=== PATIENT | male | born 1950 | race Caucasian/White ===

== ENCOUNTER 2022-11-29 04:24 | Inpatient (IN) | payer OTHER ==
[~2022-11-29] VITALS: Ht 172.7 cm; Wt 112.0 kg
[2022-11-29] VITALS (61 sets, daily range): BP systolic 72–158; BP diastolic 43–85
[2022-11-29] MEDS: PROPOFOL 100 ML IV SCH
[2022-11-29] MEDS ORDERED: ETOMIDATE (2MG/ML) 20ML VIAL IV ONE ×2 (04:29→04:30)
[2022-11-29] MEDS ORDERED: ROCURONIUM 10MG/ML 10ML VIAL IV ONE ×2 (04:29→04:30)
[2022-11-29] MEDS: MIDAZOLAM DRIP 50 mg/50mL 50 ML IV SCH ×3 (04:40→22:00)
[2022-11-29] MEDS: fentaNYL Drip 2500mCg/250mlNS 250 ML IV SCH (04:40)
[2022-11-29 05:01] LABS: Basophils # (auto) 0.1 10 ^3/uL (0-0.2); Basophils % (auto) 1.1 % (0.0-2.0); Eosinophils # (auto) 0.2 10 ^3/uL (0-0.8); Eosinophils % (auto) 1.4 % (0.0-7.0); Hematocrit 19.1 % (41.0-53.0); Lymphocytes # (auto) 3.8 10 ^3/uL (0.4-5.4); Lymphocytes % (auto) 32.1 % (10.0-50.0); Mean Corpuscular Hemoglobin 28.7 pg (28.0-32.0); Mean Corpuscular Hgb Conc. 31.1 g/dL (32.0-36.0); Mean Corpuscular Volume 92.2 fL (80.0-100.0); Monocytes # (auto) 1.2 10 ^3/uL (0-1.3); Monocytes % (auto) 10.3 % (0.0-12.0); Neutrophils # (auto) 6.5 10 ^3/uL (1.6-8.6); Neutrophils % (auto) 55.1 % (37.0-80.0); Nucleated Red Blood Cells % 0.1 %; Red Blood Cells 2.08 10^6/uL (4.5-5.90); Red Cell Distribution Width 19.4 % (11.8-14.3); White Blood Cell 11.8 10^3/uL (4.4-10.8)
[2022-11-29 05:09] LABS: INR 1.08 (0.9-1.15); Partial Thromboplastin Time 34.7 sec (24.6-33.4)
[2022-11-29 05:12] LABS: Urine Bacteria FEW /hpf (None Seen); Urine Blood 1+ /uL (Negative); Urine WBC 4 /hpf (0 - 3)
[2022-11-29 05:14] LABS: Lactic Acid w/Reflex 10.3 mmol/L (0.4-2.0)
[2022-11-29 05:23] LABS: Alcohol, Urine < 3.0 mg/dL (0-10); Amphetamine Screen, Urine NEGATIVE (NEGATIVE); Barbiturate Scree,Urine NEGATIVE (NEGATIVE); Benzodiazephine Screen, Urine NEGATIVE (NEGATIVE); Cannabinoid Screen, Urine NEGATIVE (NEGATIVE); Cocaine Screen, Urine NEGATIVE (NEGATIVE); Opiate Scree,Urine NEGATIVE (NEGATIVE); Phencyclidine Screen, Urine NEGATIVE (NEGATIVE)
[2022-11-29] MEDS ORDERED: SODIUM CHLORIDE 0.9% 1,000 ML IV ONE ×2 (05:30→10:00)
[2022-11-29] MEDS ORDERED: cefTRIAXone 1GM/50ML D5W 50 ML IV ONE (05:30)
[2022-11-29 05:51] LABS: Alanine Aminotransferase 26 U/L (16-61); Albumin 3.5 g/dL (3.4-5.0); Anion Gap 19 (5-15); Blood Alcohol < 3.0 mg/dL (0-5); Blood Urea Nitrogen 53 mg/dL (7-18); Calcium 6.5 mg/dL (8.5-10.1); Carbon Dioxide 10 mmol/L (21-32); Chloride 109 mmol/L (98-107); Glucose 243 mg/dL (74-106); Lipase 471 U/L (73-393); Potassium 4.3 mmol/L (3.5-5.1); Sodium 138 mmol/L (136-145)
[2022-11-29 05:54] LABS: Alkaline Phosphatase 188 U/L (45-117); Aspartate Aminotransferase 38 U/L (15-37); BUN/Creatinine Ratio 14.6; Bilirubin, Total 0.3 mg/dL (0.2-1.0); GFR African American 21 mL/min; GFR Non-African American 18 mL/min; Total Protein 7.2 g/dL (6.4-8.2)
[2022-11-29 06:00] LABS: Acetaminophen < 2.0 ug/mL (10-30); Salicylate < 1.7 mg/dL (2.8-20.0)
[2022-11-29] MEDS ORDERED: SODIUM BICARBONATE 50ML VIAL 100 ML in D5W 5% 1,000 ML IV ONE (09:45)
[2022-11-29] MEDS ORDERED: NITROGLYCERIN 0.4 MG SL TAB SL PRN (09:45)
[2022-11-29] MEDS ORDERED: MORPHINE SULFATE INJ 2 MG/ml SYRG IV PRN (09:45)
[2022-11-29] MEDS: NOREPINEPHRINE 8 MG/250ML KIT 250 ML IV SCH (09:46)
[2022-11-29] MEDS ORDERED: CEFEPIME 1GM/ 50ML 50 ML IV SCH (10:00)
[2022-11-29] MEDS ORDERED: DEXTROSE (50%) 50ML SYRG IV PRN (10:00)
[2022-11-29] MEDS ORDERED: VANCOMYCIN PER PHARMACY 0 MG IV SCH (10:00)
[2022-11-29] MEDS ORDERED: NITROGLYCERIN 0.4MG/HR TOPICAL PATCH TD ONE (10:15)
[2022-11-29] MEDS ORDERED: CEFEPIME 1GM/ 50ML 50 ML IV ONE (10:15)
[2022-11-29] MEDS ORDERED: PANTOPRAZOLE 40 MG/10 ML VIAL INJ IV ONE (10:15)
[2022-11-29 10:39] LABS: Cholesterol 97 mg/dL (< 200); HDL Cholesterol 28 mg/dL (40-59); LDL Cholesterol 57 mg/dL (< 100); Triglycerides 132 mg/dL (< 150)
[2022-11-29] MEDS ORDERED: VANCOMYCIN 1GM/250ML 250 ML IV ONE (11:15)
[2022-11-29 11:53] LABS: Hematocrit 19.7 % (41.0-53.0)
[2022-11-29] MEDS ORDERED: ALBUTEROL MEDNEB 2.5 mg/3ml NEB ONE ×2 (11:53→17:57)
[2022-11-29] MEDS: IPRATROPIUM BROM 0.5 MG/2.5ML INH SOL NEB SCH ×2 (11:54→18:08)
[2022-11-29] MEDS: ALBUTEROL SULF 2.5 MG/0.5ML(0.5%) NEB SOLN NEB SCH ×2 (11:54→18:08)
[2022-11-29 11:58] LABS: Hemoglobin 6.3 g/dL (13.5-17.5)
[2022-11-29] MEDS: ACCU-CHEK COMFORT CURVE STRIP VI SCH ×2 (12:00→18:21)
[2022-11-29] MEDS: InsuLIN REG 1unit/0.01ml Soln (100units/ml) SC SCH ×2 (12:00→18:00)
[2022-11-29] MEDS: FUROSEMIDE 20 MG/2 ML VIAL IV SCH (15:24)
[2022-11-29] MEDS ORDERED: PROPOFOL 100 ML IV ONE ×2 (15:43→18:48)
[2022-11-29] MEDS ORDERED: PROPOFOL 10 MG/ML 20 ML IV ONE (15:45)
[2022-11-29 17:19] LABS: Protein, Urine 173.8 mg/dL (0.0-11.9)
[2022-11-29 18:26] LABS: Hematocrit 23.1 % (41.0-53.0); Hemoglobin 7.2 g/dL (13.5-17.5)
[2022-11-29] MEDS ORDERED: PROPOFOL 10 MG/ML 20 ML IV SCH (19:00)
[2022-11-29] MEDS: PANTOPRAZOLE 40 MG/10 ML VIAL INJ IV SCH (22:04)
[2022-11-29] MEDS: methylPREDNISolone SOD SUCC 125 MG/2 ML VL IV SCH (22:05)
[2022-11-30] VITALS (103 sets, daily range): BP systolic 85–124; BP diastolic 43–69
[2022-11-30] MEDS: ACCU-CHEK COMFORT CURVE STRIP VI SCH ×5 (00:01→23:46)
[2022-11-30] MEDS: InsuLIN REG 1unit/0.01ml Soln (100units/ml) SC SCH ×5 (00:05→23:46)
[2022-11-30] MEDS ORDERED: ALBUTEROL MEDNEB 2.5 mg/3ml NEB ONE ×3 (00:06→12:31)
[2022-11-30] MEDS: ALBUTEROL SULF 2.5 MG/0.5ML(0.5%) NEB SOLN NEB SCH ×3 (00:23→12:36)
[2022-11-30] MEDS: IPRATROPIUM BROM 0.5 MG/2.5ML INH SOL NEB SCH ×4 (00:23→18:52)
[2022-11-30 00:39] LABS: Hematocrit 20.5 % (41.0-53.0)
[2022-11-30 00:45] LABS: Hemoglobin 6.7 g/dL (13.5-17.5)
[2022-11-30] MEDS: MIDAZOLAM DRIP 50 mg/50mL 50 ML IV SCH ×4 (03:00→19:01)
[2022-11-30 04:10] LABS: Potassium 4.2 mmol/L (3.5-5.1)
[2022-11-30 04:15] LABS: Albumin 3.1 g/dL (3.4-5.0); BUN/Creatinine Ratio 13.8; Bilirubin, Total 0.4 mg/dL (0.2-1.0); Calcium 6.1 mg/dL (8.5-10.1); Phosphorus 6.8 mg/dL (2.5-4.90); Total Protein 5.8 g/dL (6.4-8.2)
[2022-11-30 04:21] LABS: Magnesium 0.8 mg/dL (1.6-2.6)
[2022-11-30] MEDS: fentaNYL Drip 2500mCg/250mlNS 250 ML IV SCH ×2 (04:45→09:34)
[2022-11-30] MEDS: SODIUM CHLORIDE 0.9% 1,000 ML IV SCH ×2 (05:00→15:00)
[2022-11-30] MEDS: PROPOFOL 100 ML IV SCH ×4 (05:30→20:00)
[2022-11-30] MEDS: MAGNESIUM SULFATE 1GM/100ML 100 ML IV SCH ×3 (08:00→09:21)
[2022-11-30] MEDS: NOREPINEPHRINE 8 MG/250ML KIT 250 ML IV SCH ×3 (09:15→22:00)
[2022-11-30] MEDS ORDERED: VANCOMYCIN 1GM/250ML 250 ML IV ONE (09:45)
[2022-11-30] MEDS ORDERED: PANTOPRAZOLE 40 MG/10 ML VIAL INJ IV SCH (10:00)
[2022-11-30] MEDS: methylPREDNISolone SOD SUCC 125 MG/2 ML VL IV SCH ×2 (10:19→21:55)
[2022-11-30] MEDS: PANTOPRAZOLE 40 MG/10 ML VIAL INJ IV SCH ×2 (10:19→21:55)
[2022-11-30] MEDS: FUROSEMIDE 20 MG/2 ML VIAL IV SCH (10:20)
[2022-11-30 10:21] LABS: Hemoglobin 7.7 g/dL (13.5-17.5)
[2022-11-30 10:24] LABS: Hematocrit 23.7 % (41.0-53.0); Mean Corpuscular Hemoglobin 28.1 pg (28.0-32.0); Mean Corpuscular Hgb Conc. 32.3 g/dL (32.0-36.0); Mean Corpuscular Volume 86.9 fL (80.0-100.0); Red Blood Cells 2.73 10^6/uL (4.5-5.90); Red Cell Distribution Width 17.8 % (11.8-14.3); White Blood Cell 7.8 10^3/uL (4.4-10.8)
[2022-11-30 10:30] LABS: Basophils % (manual) 0 (0.0-2.0); Blast Cells 0; Eosinophils % (manual) 0 (0-7); Metamyelocytes % 0; Myelocytes % 0; Promyelocytes % 0; Reactive Lymphocytes 0
[2022-11-30 12:14] LABS: Hemoglobin 7.7 g/dL (13.5-17.5)
[2022-11-30 12:16] LABS: Hematocrit 23.7 % (41.0-53.0)
[2022-11-30] MEDS: CEFEPIME 1GM/ 50ML 50 ML IV SCH (12:32)
[2022-11-30] MEDS: DOXYCYCLINE 100MG/250ML 250 ML IV SCH ×2 (14:41→21:55)
[2022-11-30] MEDS: INSULIN LANTUS (GLARGINE) 1 /0.01ml (100units/ml) SC SCH (14:45)
[2022-11-30 16:16] LABS: Band Neutrophils % (manual) 3; Lymphocytes % (manual) 2 (10.0-50.0); Monocytes % (manual) 4 (0-12)
[2022-11-30 18:38] LABS: Hemoglobin 7.7 g/dL (13.5-17.5)
[2022-11-30 18:39] LABS: Hematocrit 24.3 % (41.0-53.0)
[2022-11-30] MEDS: ALBUTEROL MEDNEB 2.5 mg/3ml NEB NEB SCH (18:52)
[2022-12-01] VITALS (100 sets, daily range): BP systolic 82–146; BP diastolic 36–62
[2022-12-01] MEDS: ALBUTEROL MEDNEB 2.5 mg/3ml NEB NEB SCH ×5 (00:42→23:51)
[2022-12-01] MEDS: IPRATROPIUM BROM 0.5 MG/2.5ML INH SOL NEB SCH ×5 (00:43→23:51)
[2022-12-01] MEDS: SODIUM CHLORIDE 0.9% 1,000 ML IV SCH ×2 (01:00→09:14)
[2022-12-01] MEDS: PROPOFOL 100 ML IV SCH ×6 (01:00→22:17)
[2022-12-01] MEDS: MIDAZOLAM DRIP 50 mg/50mL 50 ML IV SCH ×3 (01:00→09:14)
[2022-12-01 03:55] LABS: Hematocrit 23.4 % (41.0-53.0); Mean Corpuscular Volume 86.5 fL (80.0-100.0)
[2022-12-01 03:59] LABS: Hemoglobin 7.7 g/dL (13.5-17.5); Mean Corpuscular Hemoglobin 28.6 pg (28.0-32.0)
[2022-12-01 04:09] LABS: Basophils % (manual) 0 (0.0-2.0); Blast Cells 0; Eosinophils % (manual) 0 (0-7); Metamyelocytes % 0; Myelocytes % 0; Promyelocytes % 0; Reactive Lymphocytes 0
[2022-12-01 04:19] LABS: Potassium 3.7 mmol/L (3.5-5.1)
[2022-12-01 04:31] LABS: BUN/Creatinine Ratio 12.6; Calcium 6.5 mg/dL (8.5-10.1)
[2022-12-01 05:05] LABS: Band Neutrophils % (manual) 8; Lymphocytes % (manual) 1 (10.0-50.0); Monocytes % (manual) 6 (0-12)
[2022-12-01] MEDS ORDERED: FUROSEMIDE 100 MG/10ML VIAL IV ONE (05:15)
[2022-12-01 05:47] LABS: Magnesium 1.5 mg/dL (1.6-2.6); Phosphorus 8.6 mg/dL (2.5-4.90)
[2022-12-01] MEDS: ACCU-CHEK COMFORT CURVE STRIP VI SCH ×4 (06:30→23:49)
[2022-12-01] MEDS: InsuLIN REG 1unit/0.01ml Soln (100units/ml) SC SCH ×4 (06:30→23:50)
[2022-12-01] MEDS: INSULIN LANTUS (GLARGINE) 1 /0.01ml (100units/ml) SC SCH (06:35)
[2022-12-01] MEDS: fentaNYL Drip 2500mCg/250mlNS 250 ML IV SCH (09:13)
[2022-12-01] MEDS: CHOLECALCIFEROL (VITD3) 1,000UNIT=25mCg TAB PO SCH (09:52)
[2022-12-01] MEDS: methylPREDNISolone SOD SUCC 125 MG/2 ML VL IV SCH (09:52)
[2022-12-01] MEDS: FUROSEMIDE 20 MG/2 ML VIAL IV SCH (09:52)
[2022-12-01] MEDS: PANTOPRAZOLE 40 MG/10 ML VIAL INJ IV SCH ×2 (09:52→22:15)
[2022-12-01] MEDS: DOXYCYCLINE 100MG/250ML 250 ML IV SCH ×2 (09:52→22:15)
[2022-12-01] MEDS: CEFEPIME 1GM/ 50ML 50 ML IV SCH (12:45)
[2022-12-01] MEDS ORDERED: MAGNESIUM SULFATE 1GM/100ML 100 ML IV ONE (14:45)
[2022-12-01] MEDS ORDERED: SODIUM BICARBONATE 50ML VIAL 150 ML in D5W 5% 1,000 ML IV ONE (16:00)
[2022-12-01] MEDS: FUROSEMIDE 100 MG/10ML VIAL IV SCH (17:48)
[2022-12-01] MEDS: NOREPINEPHRINE 8 MG/250ML KIT 250 ML IV SCH ×2 (19:30→22:16)
[2022-12-02] VITALS (105 sets, daily range): BP systolic 89–174; BP diastolic 38–79
[2022-12-02] MEDS: MIDAZOLAM DRIP 50 mg/50mL 50 ML IV SCH ×2 (00:37→07:47)
[2022-12-02] MEDS: PROPOFOL 100 ML IV SCH ×2 (02:27→23:58)
[2022-12-02 04:16] LABS: Eosinophils # (auto) 0 10 ^3/uL (0-0.8); Hemoglobin 7.7 g/dL (13.5-17.5); Lymphocytes # (auto) 0.2 10 ^3/uL (0.4-5.4)
[2022-12-02 04:20] LABS: Basophils # (auto) 0.2 10 ^3/uL (0-0.2); Basophils % (auto) 1.6 % (0.0-2.0); Hematocrit 23.6 % (41.0-53.0); Lymphocytes % (auto) 1.3 % (10.0-50.0); Mean Corpuscular Hemoglobin 28.3 pg (28.0-32.0); Mean Corpuscular Hgb Conc. 32.6 g/dL (32.0-36.0); Mean Corpuscular Volume 86.9 fL (80.0-100.0); Monocytes # (auto) 0.6 10 ^3/uL (0-1.3); Monocytes % (auto) 3.9 % (0.0-12.0); Neutrophils # (auto) 14.7 10 ^3/uL (1.6-8.6); Neutrophils % (auto) 93.2 % (37.0-80.0); Nucleated Red Blood Cells % 0.2 %; Red Blood Cells 2.72 10^6/uL (4.5-5.90); White Blood Cell 15.7 10^3/uL (4.4-10.8)
[2022-12-02 04:36] LABS: BUN/Creatinine Ratio 11.3; Calcium 6.5 mg/dL (8.5-10.1); Magnesium 1.7 mg/dL (1.6-2.6); Potassium 3.8 mmol/L (3.5-5.1)
[2022-12-02] MEDS: ALBUTEROL MEDNEB 2.5 mg/3ml NEB NEB SCH ×3 (06:12→18:20)
[2022-12-02] MEDS: IPRATROPIUM BROM 0.5 MG/2.5ML INH SOL NEB SCH ×3 (06:12→18:21)
[2022-12-02] MEDS: fentaNYL Drip 2500mCg/250mlNS 250 ML IV SCH (06:29)
[2022-12-02] MEDS: FUROSEMIDE 100 MG/10ML VIAL IV SCH ×2 (06:38→18:00)
[2022-12-02] MEDS: InsuLIN REG 1unit/0.01ml Soln (100units/ml) SC SCH ×4 (06:58→23:59)
[2022-12-02] MEDS: ACCU-CHEK COMFORT CURVE STRIP VI SCH ×4 (06:58→23:58)
[2022-12-02] MEDS: INSULIN LANTUS (GLARGINE) 1 /0.01ml (100units/ml) SC SCH (06:59)
[2022-12-02] MEDS: NOREPINEPHRINE 8 MG/250ML KIT 250 ML IV SCH (08:24)
[2022-12-02] MEDS: DOXYCYCLINE 100MG/250ML 250 ML IV SCH ×2 (09:08→23:00)
[2022-12-02] MEDS: PANTOPRAZOLE 40 MG/10 ML VIAL INJ IV SCH ×2 (09:09→21:46)
[2022-12-02] MEDS: CHOLECALCIFEROL (VITD3) 1,000UNIT=25mCg TAB PO SCH (09:09)
[2022-12-02] MEDS: methylPREDNISolone SOD SUCC 125 MG/2 ML VL IV SCH (09:10)
[2022-12-02] MEDS ORDERED: SODIUM BICARBONATE 8.4 % INJ 50ML VIAL IV ONE (09:45)
[2022-12-02] MEDS: CEFEPIME 1GM/ 50ML 50 ML IV SCH (11:40)
[2022-12-02] MEDS ORDERED: MAGNESIUM SULFATE 1GM/100ML 100 ML IV ONE (11:45)
[2022-12-02] MEDS ORDERED: LACTULOSE 20Gm/30ML SOLN PO ONE (11:45)
[2022-12-02] MEDS ORDERED: CLINIMIX PER PHARMACY 0 ML IV SCH (15:45)
[2022-12-02] MEDS: AMINO ACID INFUSION IN D10W 1,000 ML IV NR (20:33)
[2022-12-02] MEDS ORDERED: EPOETIN ALFA-EPBX 4,000 UNIT/ML VIAL SC ONE (21:00)
[2022-12-03] VITALS (107 sets, daily range): BP systolic 92–163; BP diastolic 46–78
[2022-12-03] MEDS: IPRATROPIUM BROM 0.5 MG/2.5ML INH SOL NEB SCH ×4 (00:13→18:28)
[2022-12-03] MEDS: ALBUTEROL MEDNEB 2.5 mg/3ml NEB NEB SCH ×4 (00:13→18:28)
[2022-12-03 04:06] LABS: Basophils # (auto) 0 10 ^3/uL (0-0.2); Eosinophils # (auto) 0 10 ^3/uL (0-0.8); Hemoglobin 7.2 g/dL (13.5-17.5); Lymphocytes # (auto) 0.4 10 ^3/uL (0.4-5.4); Nucleated Red Blood Cells % 0.2 %; Red Blood Cells 2.54 10^6/uL (4.5-5.90); White Blood Cell 11.6 10^3/uL (4.4-10.8)
[2022-12-03 04:09] LABS: Basophils % (auto) 0.1 % (0.0-2.0); Eosinophils % (auto) 0.1 % (0.0-7.0); Hematocrit 21.4 % (41.0-53.0); Mean Corpuscular Hemoglobin 28.2 pg (28.0-32.0); Mean Corpuscular Hgb Conc. 33.5 g/dL (32.0-36.0); Mean Corpuscular Volume 84.1 fL (80.0-100.0); Monocytes # (auto) 0.7 10 ^3/uL (0-1.3); Monocytes % (auto) 6.5 % (0.0-12.0); Neutrophils # (auto) 10.5 10 ^3/uL (1.6-8.6); Neutrophils % (auto) 90.3 % (37.0-80.0); Red Cell Distribution Width 17.5 % (11.8-14.3)
[2022-12-03 04:17] LABS: Albumin 2.4 g/dL (3.4-5.0); Calcium 6.8 mg/dL (8.5-10.1); Magnesium 1.8 mg/dL (1.6-2.6); Potassium 3.3 mmol/L (3.5-5.1)
[2022-12-03 04:19] LABS: BUN/Creatinine Ratio 12.1
[2022-12-03 04:21] LABS: Bilirubin, Total 0.4 mg/dL (0.2-1.0); Phosphorus 7.5 mg/dL (2.5-4.90); Total Protein 5.4 g/dL (6.4-8.2)
[2022-12-03] MEDS: fentaNYL Drip 2500mCg/250mlNS 250 ML IV SCH ×2 (05:56→22:33)
[2022-12-03] MEDS: MIDAZOLAM DRIP 50 mg/50mL 50 ML IV SCH ×3 (05:56→22:33)
[2022-12-03] MEDS: ACCU-CHEK COMFORT CURVE STRIP VI SCH ×3 (06:27→18:00)
[2022-12-03] MEDS: FUROSEMIDE 100 MG/10ML VIAL IV SCH ×2 (06:27→18:00)
[2022-12-03] MEDS: InsuLIN REG 1unit/0.01ml Soln (100units/ml) SC SCH ×3 (06:31→18:00)
[2022-12-03] MEDS: INSULIN LANTUS (GLARGINE) 1 /0.01ml (100units/ml) SC SCH (06:32)
[2022-12-03] MEDS: PROPOFOL 100 ML IV SCH ×3 (06:34→22:35)
[2022-12-03] MEDS: NOREPINEPHRINE 8 MG/250ML KIT 250 ML IV SCH (09:15)
[2022-12-03] MEDS: CEFEPIME 1GM/ 50ML 50 ML IV SCH (09:46)
[2022-12-03] MEDS: PANTOPRAZOLE 40 MG/10 ML VIAL INJ IV SCH ×2 (09:46→21:32)
[2022-12-03] MEDS: methylPREDNISolone SOD SUCC 125 MG/2 ML VL IV SCH (09:46)
[2022-12-03] MEDS: LACTULOSE 20Gm/30ML SOLN PO SCH (09:47)
[2022-12-03] MEDS: CHOLECALCIFEROL (VITD3) 1,000UNIT=25mCg TAB PO SCH (09:47)
[2022-12-03] MEDS: DOXYCYCLINE 100MG/250ML 250 ML IV SCH ×2 (09:47→22:31)
[2022-12-03] MEDS ORDERED: POTASSIUM CHL 20MEQ/100ML 100 ML IV ONE (10:45)
[2022-12-03] MEDS ORDERED: FLEET MINERAL OIL ENEMA 133 ML PR ONE (16:00)
[2022-12-03] MEDS: LACTULOSE 10g/15ml SOLN 473ML PR SCH ×2 (18:00→23:57)
[2022-12-03] MEDS: AMINO ACID INFUSION IN D10W 1,000 ML IV NR (20:04)
[2022-12-04] VITALS (105 sets, daily range): BP systolic 82–154; BP diastolic 40–86
[2022-12-04] MEDS: ACCU-CHEK COMFORT CURVE STRIP VI SCH ×4 (00:07→18:08)
[2022-12-04] MEDS: InsuLIN REG 1unit/0.01ml Soln (100units/ml) SC SCH ×4 (00:08→18:07)
[2022-12-04] MEDS: IPRATROPIUM BROM 0.5 MG/2.5ML INH SOL NEB SCH ×4 (00:46→18:59)
[2022-12-04] MEDS: ALBUTEROL MEDNEB 2.5 mg/3ml NEB NEB SCH ×4 (00:46→18:59)
[2022-12-04] MEDS: ACETYLCYSTEINE 20%(200MG/ML) SOL 4ML NEB SCH ×4 (00:47→19:00)
[2022-12-04] MEDS: NOREPINEPHRINE 8 MG/250ML KIT 250 ML IV SCH (03:59)
[2022-12-04] MEDS: PROPOFOL 100 ML IV SCH ×3 (04:01→22:00)
[2022-12-04 04:11] LABS: Basophils # (auto) 0 10 ^3/uL (0-0.2); Eosinophils # (auto) 0 10 ^3/uL (0-0.8); Eosinophils % (auto) 0.1 % (0.0-7.0); Lymphocytes # (auto) 0.4 10 ^3/uL (0.4-5.4); Monocytes # (auto) 0.7 10 ^3/uL (0-1.3)
[2022-12-04 04:14] LABS: Basophils % (auto) 0.4 % (0.0-2.0); Hematocrit 21.6 % (41.0-53.0); Hemoglobin 7.5 g/dL (13.5-17.5); Lymphocytes % (auto) 3.6 % (10.0-50.0); Mean Corpuscular Hemoglobin 28.9 pg (28.0-32.0); Mean Corpuscular Hgb Conc. 34.7 g/dL (32.0-36.0); Mean Corpuscular Volume 83.3 fL (80.0-100.0); Monocytes % (auto) 6.1 % (0.0-12.0); Neutrophils # (auto) 9.7 10 ^3/uL (1.6-8.6); Neutrophils % (auto) 89.8 % (37.0-80.0); Nucleated Red Blood Cells % 0.2 %; Red Blood Cells 2.59 10^6/uL (4.5-5.90); Red Cell Distribution Width 17.9 % (11.8-14.3); White Blood Cell 10.8 10^3/uL (4.4-10.8)
[2022-12-04 04:34] LABS: Potassium 4.2 mmol/L (3.5-5.1)
[2022-12-04 04:38] LABS: Albumin 2.5 g/dL (3.4-5.0); BUN/Creatinine Ratio 16.1; Calcium 6.9 mg/dL (8.5-10.1); Magnesium 1.8 mg/dL (1.6-2.6)
[2022-12-04 04:40] LABS: Bilirubin, Total 0.5 mg/dL (0.2-1.0); Total Protein 5.1 g/dL (6.4-8.2)
[2022-12-04 05:12] LABS: Phosphorus 9.9 mg/dL (2.5-4.90)
[2022-12-04] MEDS: FUROSEMIDE 100 MG/10ML VIAL IV SCH ×2 (05:51→18:00)
[2022-12-04] MEDS: LACTULOSE 10g/15ml SOLN 473ML PR SCH ×3 (06:00→17:29)
[2022-12-04] MEDS: INSULIN LANTUS (GLARGINE) 1 /0.01ml (100units/ml) SC SCH (06:34)
[2022-12-04] MEDS: methylPREDNISolone SOD SUCC 125 MG/2 ML VL IV SCH (09:31)
[2022-12-04] MEDS: PANTOPRAZOLE 40 MG/10 ML VIAL INJ IV SCH ×2 (09:31→22:00)
[2022-12-04] MEDS: DOXYCYCLINE 100MG/250ML 250 ML IV SCH ×2 (09:43→23:00)
[2022-12-04] MEDS: CHOLECALCIFEROL (VITD3) 1,000UNIT=25mCg TAB PO SCH (10:00)
[2022-12-04] MEDS: LACTULOSE 20Gm/30ML SOLN PO SCH (10:00)
[2022-12-04] MEDS: BISACODYL 10 MG RECT SUPP PR PRN (11:37)
[2022-12-04] MEDS: MUPIROCIN 2% OINT 15gm or 22gm FOR MRSA NARES EACHNOSTRI SCH ×2 (11:59→22:00)
[2022-12-04] MEDS: CEFEPIME 1GM/ 50ML 50 ML IV SCH (12:00)
[2022-12-04] MEDS ORDERED: BUMETANIDE 2.5mg/10ml (0.25 mg/ml) INJ IV ONE (13:00)
[2022-12-04] MEDS ORDERED: SODIUM CHL 0.9% 1000 ML BAG XX ONE (15:45)
[2022-12-04] MEDS: MIDAZOLAM DRIP 50 mg/50mL 50 ML IV SCH (20:00)
[2022-12-04] MEDS: AMINO ACID INFUSION IN D10W 1,000 ML IV NR (20:00)
[2022-12-04] MEDS: fentaNYL Drip 2500mCg/250mlNS 250 ML IV SCH (22:00)
[2022-12-05] VITALS (109 sets, daily range): BP systolic 95–160; BP diastolic 47–84
[2022-12-05] MEDS: ALBUTEROL MEDNEB 2.5 mg/3ml NEB NEB SCH ×4 (00:12→18:43)
[2022-12-05] MEDS: IPRATROPIUM BROM 0.5 MG/2.5ML INH SOL NEB SCH ×4 (00:12→18:43)
[2022-12-05] MEDS: PROPOFOL 100 ML IV SCH ×4 (03:29→22:00)
[2022-12-05 04:38] LABS: Hemoglobin 7.6 g/dL (13.5-17.5)
[2022-12-05 04:41] LABS: Mean Corpuscular Hemoglobin 28.5 pg (28.0-32.0); Mean Corpuscular Hgb Conc. 34.6 g/dL (32.0-36.0); Mean Corpuscular Volume 82.4 fL (80.0-100.0); Red Blood Cells 2.67 10^6/uL (4.5-5.90); Red Cell Distribution Width 17.3 % (11.8-14.3); White Blood Cell 9.5 10^3/uL (4.4-10.8)
[2022-12-05 04:45] LABS: Calcium 7.6 mg/dL (8.5-10.1); Magnesium 2.1 mg/dL (1.6-2.6); Potassium 3.7 mmol/L (3.5-5.1)
[2022-12-05 04:51] LABS: Albumin 2.5 g/dL (3.4-5.0); BUN/Creatinine Ratio 18.9; Bilirubin, Total 0.6 mg/dL (0.2-1.0); Total Protein 5.3 g/dL (6.4-8.2)
[2022-12-05 04:58] LABS: Basophils % (manual) 0 (0.0-2.0); Blast Cells 0; Eosinophils % (manual) 0 (0-7); Metamyelocytes % 0; Myelocytes % 0; Promyelocytes % 0; Reactive Lymphocytes 0
[2022-12-05 05:10] LABS: Phosphorus 8.3 mg/dL (2.5-4.90)
[2022-12-05] MEDS: InsuLIN REG 1unit/0.01ml Soln (100units/ml) SC SCH ×4 (06:00→17:32)
[2022-12-05] MEDS: ACCU-CHEK COMFORT CURVE STRIP VI SCH ×4 (06:00→17:32)
[2022-12-05] MEDS: FUROSEMIDE 100 MG/10ML VIAL IV SCH ×2 (06:00→17:33)
[2022-12-05] MEDS: LACTULOSE 10g/15ml SOLN 473ML PR SCH ×2 (06:00)
[2022-12-05] MEDS: ACETYLCYSTEINE 20%(200MG/ML) SOL 4ML NEB SCH ×3 (06:46→22:27)
[2022-12-05] MEDS: INSULIN LANTUS (GLARGINE) 1 /0.01ml (100units/ml) SC SCH (06:50)
[2022-12-05] MEDS: MIDAZOLAM DRIP 50 mg/50mL 50 ML IV SCH (07:00)
[2022-12-05 08:23] LABS: Band Neutrophils % (manual) 87; Lymphocytes % (manual) 5 (10.0-50.0); Monocytes % (manual) 8 (0-12)
[2022-12-05] MEDS: NOREPINEPHRINE 8 MG/250ML KIT 250 ML IV SCH (09:15)
[2022-12-05] MEDS: CHOLECALCIFEROL (VITD3) 1,000UNIT=25mCg TAB PO SCH (10:00)
[2022-12-05] MEDS: MUPIROCIN 2% OINT 15gm or 22gm FOR MRSA NARES EACHNOSTRI SCH ×2 (10:21→22:00)
[2022-12-05] MEDS: PANTOPRAZOLE 40 MG/10 ML VIAL INJ IV SCH ×2 (10:21→22:00)
[2022-12-05] MEDS: DOXYCYCLINE 100MG/250ML 250 ML IV SCH ×2 (10:22→23:00)
[2022-12-05] MEDS: methylPREDNISolone SOD SUCC 125 MG/2 ML VL IV SCH (10:22)
[2022-12-05] MEDS: ALBUTEROL SULF 2.5 MG/0.5ML(0.5%) NEB SOLN NEB PRN (12:11)
[2022-12-05] MEDS: CEFEPIME 1GM/ 50ML 50 ML IV SCH (12:30)
[2022-12-05] MEDS: fentaNYL Drip 2500mCg/250mlNS 250 ML IV SCH (18:50)
[2022-12-05] MEDS: IPRATROPIUM BROM 0.5 MG/2.5ML INH SOL NEB PRN (22:26)
[2022-12-05] MEDS: AMINO ACID INFUSION IN D10W 1,000 ML IV NR (23:10)
[2022-12-06] VITALS (109 sets, daily range): BP systolic 85–172; BP diastolic 49–107
[2022-12-06] MEDS: ALBUTEROL MEDNEB 2.5 mg/3ml NEB NEB SCH ×4 (00:40→18:55)
[2022-12-06] MEDS: IPRATROPIUM BROM 0.5 MG/2.5ML INH SOL NEB SCH ×4 (00:41→18:55)
[2022-12-06] MEDS: PROPOFOL 100 ML IV SCH ×4 (04:00→20:19)
[2022-12-06 05:03] LABS: Hemoglobin 7.8 g/dL (13.5-17.5)
[2022-12-06 05:05] LABS: Hematocrit 23.2 % (41.0-53.0); Mean Corpuscular Hemoglobin 27.6 pg (28.0-32.0); Mean Corpuscular Hgb Conc. 33.6 g/dL (32.0-36.0); Mean Corpuscular Volume 82.1 fL (80.0-100.0); Red Blood Cells 2.83 10^6/uL (4.5-5.90); Red Cell Distribution Width 17.6 % (11.8-14.3); White Blood Cell 11.2 10^3/uL (4.4-10.8)
[2022-12-06 05:15] LABS: Basophils % (manual) 0 (0.0-2.0); Blast Cells 0; Eosinophils % (manual) 0 (0-7); Metamyelocytes % 0; Promyelocytes % 0; Reactive Lymphocytes 0
[2022-12-06 05:20] LABS: Albumin 2.5 g/dL (3.4-5.0); Calcium 8.4 mg/dL (8.5-10.1); Magnesium 2.2 mg/dL (1.6-2.6); Potassium 3.9 mmol/L (3.5-5.1)
[2022-12-06 05:25] LABS: BUN/Creatinine Ratio 22.5; Bilirubin, Total 0.8 mg/dL (0.2-1.0); Total Protein 5.8 g/dL (6.4-8.2)
[2022-12-06 05:43] LABS: Phosphorus 10.6 mg/dL (2.5-4.90)
[2022-12-06] MEDS: InsuLIN REG 1unit/0.01ml Soln (100units/ml) SC SCH ×4 (06:00→18:19)
[2022-12-06] MEDS: ACCU-CHEK COMFORT CURVE STRIP VI SCH ×4 (06:00→18:10)
[2022-12-06] MEDS: FUROSEMIDE 100 MG/10ML VIAL IV SCH ×2 (06:00→18:10)
[2022-12-06] MEDS: ACETYLCYSTEINE 20%(200MG/ML) SOL 4ML NEB SCH ×3 (06:28→18:55)
[2022-12-06 06:54] LABS: Band Neutrophils % (manual) 4; Lymphocytes % (manual) 6 (10.0-50.0); Monocytes % (manual) 9 (0-12); Myelocytes % 2
[2022-12-06] MEDS: INSULIN LANTUS (GLARGINE) 1 /0.01ml (100units/ml) SC SCH (06:55)
[2022-12-06] MEDS ORDERED: SODIUM CHL 0.9% 1000 ML BAG XX ONE (07:30)
[2022-12-06] MEDS: CEFEPIME 1GM/ 50ML 50 ML IV SCH (07:54)
[2022-12-06] MEDS: PANTOPRAZOLE 40 MG/10 ML VIAL INJ IV SCH ×2 (07:54→21:42)
[2022-12-06] MEDS: methylPREDNISolone SOD SUCC 125 MG/2 ML VL IV SCH (07:54)
[2022-12-06] MEDS: NOREPINEPHRINE 8 MG/250ML KIT 250 ML IV SCH (09:15)
[2022-12-06] MEDS: DOXYCYCLINE 100MG/250ML 250 ML IV SCH ×2 (09:46→22:43)
[2022-12-06] MEDS: MUPIROCIN 2% OINT 15gm or 22gm FOR MRSA NARES EACHNOSTRI SCH ×2 (09:46→22:43)
[2022-12-06] MEDS: CHOLECALCIFEROL (VITD3) 1,000UNIT=25mCg TAB PO SCH (09:47)
[2022-12-06] MEDS: AMINO ACID INFUSION IN D10W 1,000 ML IV NR ×3 (12:05→20:18)
[2022-12-06] MEDS: ALBUTEROL SULF 2.5 MG/0.5ML(0.5%) NEB SOLN NEB PRN (14:29)
[2022-12-06] MEDS: IPRATROPIUM BROM 0.5 MG/2.5ML INH SOL NEB PRN (14:30)
[2022-12-06] MEDS ORDERED: FLEET MINERAL OIL ENEMA 133 ML PR ONE (16:45)
[2022-12-06] MEDS: fentaNYL Drip 2500mCg/250mlNS 250 ML IV SCH (17:39)
[2022-12-06] MEDS ORDERED: EPOETIN ALFA-EPBX 10,000 UNIT/1ML VIAL SC ONE (21:00)
[2022-12-07] VITALS (106 sets, daily range): BP systolic 80–172; BP diastolic 35–92
[2022-12-07] MEDS: ACCU-CHEK COMFORT CURVE STRIP VI SCH ×4 (00:38→18:09)
[2022-12-07] MEDS: ALBUTEROL MEDNEB 2.5 mg/3ml NEB NEB SCH ×5 (01:03→22:29)
[2022-12-07] MEDS: IPRATROPIUM BROM 0.5 MG/2.5ML INH SOL NEB SCH ×5 (01:04→22:29)
[2022-12-07] MEDS: PROPOFOL 100 ML IV SCH ×2 (02:09→12:24)
[2022-12-07 04:26] LABS: Hematocrit 23.3 % (41.0-53.0); Mean Corpuscular Hemoglobin 28.2 pg (28.0-32.0); Mean Corpuscular Hgb Conc. 34.2 g/dL (32.0-36.0); Mean Corpuscular Volume 82.6 fL (80.0-100.0); Red Blood Cells 2.82 10^6/uL (4.5-5.90); White Blood Cell 11.4 10^3/uL (4.4-10.8)
[2022-12-07 04:31] LABS: Band Neutrophils % (manual) 0; Basophils % (manual) 0 (0.0-2.0); Blast Cells 0; Metamyelocytes % 0; Myelocytes % 0; Promyelocytes % 0; Reactive Lymphocytes 0
[2022-12-07 04:35] LABS: Potassium 3.5 mmol/L (3.5-5.1)
[2022-12-07] MEDS: MIDAZOLAM DRIP 50 mg/50mL 50 ML IV SCH (04:45)
[2022-12-07 04:46] LABS: Albumin 2.6 g/dL (3.4-5.0); BUN/Creatinine Ratio 23.7; Bilirubin, Total 0.7 mg/dL (0.2-1.0); Total Protein 5.8 g/dL (6.4-8.2)
[2022-12-07] MEDS: FUROSEMIDE 100 MG/10ML VIAL IV SCH ×2 (05:51→18:08)
[2022-12-07] MEDS: InsuLIN REG 1unit/0.01ml Soln (100units/ml) SC SCH ×4 (05:51→18:05)
[2022-12-07] MEDS: INSULIN LANTUS (GLARGINE) 1 /0.01ml (100units/ml) SC SCH (06:39)
[2022-12-07] MEDS: ACETYLCYSTEINE 20%(200MG/ML) SOL 4ML NEB SCH ×3 (06:44→22:30)
[2022-12-07] MEDS ORDERED: SODIUM CHL 0.9% 1000 ML BAG XX ONE (07:00)
[2022-12-07 07:37] LABS: Eosinophils % (manual) 1 (0-7); Lymphocytes % (manual) 11 (10.0-50.0); Monocytes % (manual) 14 (0-12)
[2022-12-07] MEDS ORDERED: AMIODARONE HCL 150 MG in D5W 5% 100 ML IV ONE (09:00)
[2022-12-07] MEDS ORDERED: AMIODARONE 450mg/250ml AE 250 ML IV SCH (09:15)
[2022-12-07] MEDS: NOREPINEPHRINE 8 MG/250ML KIT 250 ML IV SCH (10:37)
[2022-12-07] MEDS: PANTOPRAZOLE 40 MG/10 ML VIAL INJ IV SCH ×2 (11:35→22:14)
[2022-12-07] MEDS: CHOLECALCIFEROL (VITD3) 1,000UNIT=25mCg TAB PO SCH (11:36)
[2022-12-07] MEDS: MUPIROCIN 2% OINT 15gm or 22gm FOR MRSA NARES EACHNOSTRI SCH ×2 (11:37→22:14)
[2022-12-07] MEDS: methylPREDNISolone SOD SUCC 125 MG/2 ML VL IV SCH (11:38)
[2022-12-07] MEDS: DOXYCYCLINE 100MG/250ML 250 ML IV SCH ×2 (12:14→22:24)
[2022-12-07] MEDS ORDERED: ALBUTEROL MEDNEB 2.5 mg/3ml NEB NEB SCH (14:00)
[2022-12-07] MEDS: CEFEPIME 1GM/ 50ML 50 ML IV SCH (14:27)
[2022-12-07] MEDS: AMIODARONE 450mg/250ml AE 250 ML IV SCH (15:55)
[2022-12-07] MEDS ORDERED: EPOETIN ALFA-EPBX 10,000 UNIT/1ML VIAL SC ONE (21:00)
[2022-12-07] MEDS: AMINO ACID INFUSION IN D10W 1,000 ML IV NR (21:04)
[2022-12-08] VITALS (106 sets, daily range): BP systolic 88–165; BP diastolic 46–93
[2022-12-08] MEDS: PROPOFOL 100 ML IV SCH ×2 (01:03→17:43)
[2022-12-08] MEDS: fentaNYL Drip 2500mCg/250mlNS 250 ML IV SCH (01:03)
[2022-12-08] MEDS: MIDAZOLAM DRIP 50 mg/50mL 50 ML IV SCH (02:30)
[2022-12-08] MEDS: ALBUTEROL MEDNEB 2.5 mg/3ml NEB NEB SCH ×6 (02:59→22:48)
[2022-12-08] MEDS: IPRATROPIUM BROM 0.5 MG/2.5ML INH SOL NEB SCH ×6 (03:00→22:47)
[2022-12-08 04:27] LABS: Mean Corpuscular Hemoglobin 27.8 pg (28.0-32.0); Red Cell Distribution Width 18.3 % (11.8-14.3)
[2022-12-08 04:29] LABS: Hematocrit 23.7 % (41.0-53.0); Mean Corpuscular Hgb Conc. 33.9 g/dL (32.0-36.0); Mean Corpuscular Volume 82.1 fL (80.0-100.0); Red Blood Cells 2.89 10^6/uL (4.5-5.90); White Blood Cell 12.5 10^3/uL (4.4-10.8)
[2022-12-08 04:43] LABS: Basophils % (manual) 0 (0.0-2.0); Blast Cells 0; Eosinophils % (manual) 0 (0-7); Metamyelocytes % 0; Promyelocytes % 0; Reactive Lymphocytes 0
[2022-12-08 04:48] LABS: Calcium 9.3 mg/dL (8.5-10.1); Potassium 3.8 mmol/L (3.5-5.1)
[2022-12-08 04:53] LABS: Albumin 2.6 g/dL (3.4-5.0); BUN/Creatinine Ratio 27.3; Bilirubin, Total 0.8 mg/dL (0.2-1.0); Magnesium 2.2 mg/dL (1.6-2.6)
[2022-12-08 05:12] LABS: Phosphorus 10.4 mg/dL (2.5-4.90)
[2022-12-08] MEDS: ACCU-CHEK COMFORT CURVE STRIP VI SCH ×4 (05:56→18:46)
[2022-12-08] MEDS: AMIODARONE 450mg/250ml AE 250 ML IV SCH ×2 (05:57→08:50)
[2022-12-08] MEDS: InsuLIN REG 1unit/0.01ml Soln (100units/ml) SC SCH ×4 (06:07→18:42)
[2022-12-08] MEDS: FUROSEMIDE 100 MG/10ML VIAL IV SCH ×2 (06:13→18:46)
[2022-12-08 06:27] LABS: Band Neutrophils % (manual) 15; Lymphocytes % (manual) 3 (10.0-50.0); Monocytes % (manual) 12 (0-12); Myelocytes % 2
[2022-12-08] MEDS ORDERED: SODIUM CHL 0.9% 1000 ML BAG XX ONE (07:00)
[2022-12-08] MEDS: ACETYLCYSTEINE 20%(200MG/ML) SOL 4ML NEB SCH ×3 (07:49→22:48)
[2022-12-08] MEDS: methylPREDNISolone SOD SUCC 125 MG/2 ML VL IV SCH (08:50)
[2022-12-08] MEDS: PANTOPRAZOLE 40 MG/10 ML VIAL INJ IV SCH ×2 (08:50→22:08)
[2022-12-08] MEDS: CEFEPIME 1GM/ 50ML 50 ML IV SCH (08:51)
[2022-12-08] MEDS: INSULIN LANTUS (GLARGINE) 1 /0.01ml (100units/ml) SC SCH (09:03)
[2022-12-08] MEDS: NOREPINEPHRINE 8 MG/250ML KIT 250 ML IV SCH (09:15)
[2022-12-08] MEDS: CHOLECALCIFEROL (VITD3) 1,000UNIT=25mCg TAB PO SCH (10:00)
[2022-12-08] MEDS: MUPIROCIN 2% OINT 15gm or 22gm FOR MRSA NARES EACHNOSTRI SCH ×2 (10:00→22:08)
[2022-12-08 12:20] LABS: Hepatitis A Ab IgM Negative
[2022-12-08 12:26] LABS: Hepatitis B Core IgM Negative
[2022-12-08 12:33] LABS: Hepatitis C Antibody Negative (Negative)
[2022-12-08] MEDS: DOXYCYCLINE 100MG/250ML 250 ML IV SCH ×2 (15:40→22:52)
[2022-12-08] MEDS: BISACODYL 10 MG RECT SUPP PR PRN (17:14)
[2022-12-08] MEDS: AMINO ACID INFUSION IN D10W 1,000 ML IV NR (20:00)
[2022-12-08] MEDS ORDERED: EPOETIN ALFA-EPBX 10,000 UNIT/1ML VIAL SC ONE (21:00)
[2022-12-09] VITALS (98 sets, daily range): BP systolic 82–206; BP diastolic 39–91
[2022-12-09] MEDS: ACCU-CHEK COMFORT CURVE STRIP VI SCH ×5 (00:13→23:28)
[2022-12-09] MEDS: InsuLIN REG 1unit/0.01ml Soln (100units/ml) SC SCH ×5 (00:15→23:30)
[2022-12-09] MEDS: AMIODARONE 450mg/250ml AE 250 ML IV SCH ×2 (01:24→20:40)
[2022-12-09] MEDS: ALBUTEROL MEDNEB 2.5 mg/3ml NEB NEB SCH ×6 (02:15→22:13)
[2022-12-09] MEDS: IPRATROPIUM BROM 0.5 MG/2.5ML INH SOL NEB SCH ×6 (02:15→22:13)
[2022-12-09 03:31] LABS: White Blood Cell 12.1 10^3/uL (4.4-10.8)
[2022-12-09 03:35] LABS: Hemoglobin 8.2 g/dL (13.5-17.5); Mean Corpuscular Hemoglobin 28.4 pg (28.0-32.0); Mean Corpuscular Hgb Conc. 34.3 g/dL (32.0-36.0); Mean Corpuscular Volume 82.8 fL (80.0-100.0); Red Cell Distribution Width 18.5 % (11.8-14.3)
[2022-12-09 03:47] LABS: Basophils % (manual) 0 (0.0-2.0); Blast Cells 0; Eosinophils % (manual) 0 (0-7); Metamyelocytes % 0; Promyelocytes % 0
[2022-12-09 04:02] LABS: Potassium 3.9 mmol/L (3.5-5.1)
[2022-12-09 04:09] LABS: Albumin 2.5 g/dL (3.4-5.0); BUN/Creatinine Ratio 27.8; Bilirubin, Total 0.8 mg/dL (0.2-1.0); Magnesium 2.1 mg/dL (1.6-2.6); Total Protein 5.8 g/dL (6.4-8.2)
[2022-12-09 04:30] LABS: Phosphorus 8.7 mg/dL (2.5-4.90)
[2022-12-09] MEDS: MIDAZOLAM DRIP 50 mg/50mL 50 ML IV SCH (04:45)
[2022-12-09] MEDS: fentaNYL Drip 2500mCg/250mlNS 250 ML IV SCH (04:45)
[2022-12-09] MEDS: PROPOFOL 100 ML IV SCH (05:30)
[2022-12-09] MEDS: FUROSEMIDE 100 MG/10ML VIAL IV SCH ×2 (05:32→17:58)
[2022-12-09 05:51] LABS: Band Neutrophils % (manual) 11; Lymphocytes % (manual) 5 (10.0-50.0); Monocytes % (manual) 5 (0-12); Myelocytes % 1; Reactive Lymphocytes 1
[2022-12-09] MEDS: INSULIN LANTUS (GLARGINE) 1 /0.01ml (100units/ml) SC SCH (06:34)
[2022-12-09] MEDS: ACETYLCYSTEINE 20%(200MG/ML) SOL 4ML NEB SCH ×3 (07:11→22:14)
[2022-12-09] MEDS: NOREPINEPHRINE 8 MG/250ML KIT 250 ML IV SCH (09:15)
[2022-12-09] MEDS: PANTOPRAZOLE 40 MG/10 ML VIAL INJ IV SCH ×2 (09:40→22:30)
[2022-12-09] MEDS: methylPREDNISolone SOD SUCC 125 MG/2 ML VL IV SCH (09:40)
[2022-12-09] MEDS: CHOLECALCIFEROL (VITD3) 1,000UNIT=25mCg TAB PO SCH (09:41)
[2022-12-09] MEDS: DOXYCYCLINE 100MG/250ML 250 ML IV SCH ×2 (09:41→22:33)
[2022-12-09] MEDS ORDERED: CARVEDILOL 3.125 MG TAB GT ONE (10:15)
[2022-12-09] MEDS: CEFEPIME 1GM/ 50ML 50 ML IV SCH (12:48)
[2022-12-09] MEDS: hydrALAZINE HCL 20 MG/ML VL IV PRN (15:28)
[2022-12-09] MEDS ORDERED: ALBUTEROL SULF 2.5 MG/0.5ML(0.5%) NEB SOLN ONE ×2 (18:02→21:55)
[2022-12-09] MEDS: AMINO ACID INFUSION IN D10W 1,000 ML IV NR (20:06)
[2022-12-09] MEDS: CARVEDILOL 3.125 MG TAB GT SCH (22:30)
[2022-12-10] VITALS (90 sets, daily range): BP systolic 82–183; BP diastolic 39–104
[2022-12-10] MEDS ORDERED: ALBUTEROL SULF 2.5 MG/0.5ML(0.5%) NEB SOLN ONE ×3 (02:13→09:28)
[2022-12-10] MEDS: IPRATROPIUM BROM 0.5 MG/2.5ML INH SOL NEB SCH ×6 (03:04→22:08)
[2022-12-10] MEDS: ALBUTEROL MEDNEB 2.5 mg/3ml NEB NEB SCH (03:04)
[2022-12-10 03:49] LABS: Basophils # (auto) 0 10 ^3/uL (0-0.2); Eosinophils # (auto) 0 10 ^3/uL (0-0.8); Eosinophils % (auto) 0.2 % (0.0-7.0); Hematocrit 23.8 % (41.0-53.0); Lymphocytes # (auto) 0.4 10 ^3/uL (0.4-5.4)
[2022-12-10 03:52] LABS: Basophils % (auto) 0.2 % (0.0-2.0); Hemoglobin 8.2 g/dL (13.5-17.5); Lymphocytes % (auto) 3.9 % (10.0-50.0); Mean Corpuscular Hemoglobin 28.4 pg (28.0-32.0); Mean Corpuscular Hgb Conc. 34.4 g/dL (32.0-36.0); Mean Corpuscular Volume 82.6 fL (80.0-100.0); Monocytes # (auto) 0.9 10 ^3/uL (0-1.3); Monocytes % (auto) 9.1 % (0.0-12.0); Neutrophils % (auto) 86.6 % (37.0-80.0); Nucleated Red Blood Cells % 0.2 %; Red Blood Cells 2.88 10^6/uL (4.5-5.90); Red Cell Distribution Width 19.4 % (11.8-14.3); White Blood Cell 10.4 10^3/uL (4.4-10.8)
[2022-12-10 04:13] LABS: Albumin 2.3 g/dL (3.4-5.0); Calcium 9.3 mg/dL (8.5-10.1); Potassium 4.2 mmol/L (3.5-5.1)
[2022-12-10 04:16] LABS: Bilirubin, Total 0.8 mg/dL (0.2-1.0); Total Protein 5.8 g/dL (6.4-8.2)
[2022-12-10 04:35] LABS: BUN/Creatinine Ratio 29.4
[2022-12-10] MEDS: PROPOFOL 100 ML IV SCH ×3 (04:35→21:41)
[2022-12-10 04:37] LABS: Phosphorus 10.2 mg/dL (2.5-4.90)
[2022-12-10] MEDS: fentaNYL Drip 2500mCg/250mlNS 250 ML IV SCH (04:45)
[2022-12-10] MEDS: MIDAZOLAM DRIP 50 mg/50mL 50 ML IV SCH (04:45)
[2022-12-10] MEDS: InsuLIN REG 1unit/0.01ml Soln (100units/ml) SC SCH ×4 (05:28→23:58)
[2022-12-10] MEDS: FUROSEMIDE 100 MG/10ML VIAL IV SCH ×2 (05:28→17:56)
[2022-12-10] MEDS: ACCU-CHEK COMFORT CURVE STRIP VI SCH ×4 (05:29→23:44)
[2022-12-10] MEDS: INSULIN LANTUS (GLARGINE) 1 /0.01ml (100units/ml) SC SCH (05:34)
[2022-12-10] MEDS: NOREPINEPHRINE 8 MG/250ML KIT 250 ML IV SCH ×2 (09:15→22:07)
[2022-12-10] MEDS: CHOLECALCIFEROL (VITD3) 1,000UNIT=25mCg TAB PO SCH (10:00)
[2022-12-10] MEDS: CARVEDILOL 3.125 MG TAB GT SCH ×2 (10:00→21:05)
[2022-12-10] MEDS: ALBUTEROL SULF 2.5 MG/0.5ML(0.5%) NEB SOLN NEB SCH ×4 (10:09→22:08)
[2022-12-10] MEDS: ACETYLCYSTEINE 20%(200MG/ML) SOL 4ML NEB SCH ×3 (10:11→18:17)
[2022-12-10] MEDS: PANTOPRAZOLE 40 MG/10 ML VIAL INJ IV SCH ×2 (12:09→21:05)
[2022-12-10] MEDS: CEFEPIME 1GM/ 50ML 50 ML IV SCH (12:09)
[2022-12-10] MEDS: methylPREDNISolone SOD SUCC 40 MG/ML VL IV SCH (12:10)
[2022-12-10] MEDS: D5W 5% IV SCH (12:11)
[2022-12-10] MEDS: AMIODARONE HCL IV SCH (12:11)
[2022-12-10] MEDS: DOXYCYCLINE 100MG/250ML 250 ML IV SCH ×2 (13:24→23:45)
[2022-12-10] MEDS ORDERED: AMINO ACID INFUSION IN D10W 1,000 ML IV NR (20:00)
[2022-12-10] MEDS: hydrALAZINE HCL 20 MG/ML VL IV PRN (20:12)
[2022-12-10] MEDS ORDERED: EPOETIN ALFA-EPBX 4,000 UNIT/ML VIAL SC ONE (21:00)
[2022-12-11] VITALS (105 sets, daily range): BP systolic 72–166; BP diastolic 29–97
[2022-12-11] MEDS: IPRATROPIUM BROM 0.5 MG/2.5ML INH SOL NEB SCH ×6 (02:34→22:20)
[2022-12-11] MEDS: ALBUTEROL SULF 2.5 MG/0.5ML(0.5%) NEB SOLN NEB SCH ×6 (02:34→22:20)
[2022-12-11] MEDS: PROPOFOL 100 ML IV SCH ×4 (03:22→18:52)
[2022-12-11 04:37] LABS: Basophils # (auto) 0 10 ^3/uL (0-0.2); Eosinophils # (auto) 0 10 ^3/uL (0-0.8); Eosinophils % (auto) 0.1 % (0.0-7.0); Hemoglobin 8.1 g/dL (13.5-17.5); Lymphocytes # (auto) 0.4 10 ^3/uL (0.4-5.4); Nucleated Red Blood Cells % 0.2 %; Red Cell Distribution Width 18.8 % (11.8-14.3)
[2022-12-11 04:42] LABS: Basophils % (auto) 0.1 % (0.0-2.0); Hematocrit 23.8 % (41.0-53.0); Lymphocytes % (auto) 3.4 % (10.0-50.0); Mean Corpuscular Hemoglobin 28.1 pg (28.0-32.0); Mean Corpuscular Volume 82.5 fL (80.0-100.0); Neutrophils # (auto) 9.3 10 ^3/uL (1.6-8.6); Neutrophils % (auto) 87.4 % (37.0-80.0); Red Blood Cells 2.89 10^6/uL (4.5-5.90); White Blood Cell 10.6 10^3/uL (4.4-10.8)
[2022-12-11] MEDS: MIDAZOLAM DRIP 50 mg/50mL 50 ML IV SCH (04:45)
[2022-12-11] MEDS: fentaNYL Drip 2500mCg/250mlNS 250 ML IV SCH ×2 (04:45→09:45)
[2022-12-11 04:49] LABS: Albumin 2.4 g/dL (3.4-5.0); BUN/Creatinine Ratio 29.3; Calcium 8.9 mg/dL (8.5-10.1); Magnesium 1.9 mg/dL (1.6-2.6)
[2022-12-11 04:52] LABS: Total Protein 5.7 g/dL (6.4-8.2)
[2022-12-11] MEDS: FUROSEMIDE 100 MG/10ML VIAL IV SCH ×2 (05:58→18:01)
[2022-12-11] MEDS: InsuLIN REG 1unit/0.01ml Soln (100units/ml) SC SCH ×4 (06:00→23:36)
[2022-12-11] MEDS: ACCU-CHEK COMFORT CURVE STRIP VI SCH ×4 (06:08→23:36)
[2022-12-11] MEDS: INSULIN LANTUS (GLARGINE) 1 /0.01ml (100units/ml) SC SCH (06:08)
[2022-12-11] MEDS: ACETYLCYSTEINE 20%(200MG/ML) SOL 4ML NEB SCH ×3 (08:46→22:20)
[2022-12-11] MEDS: CARVEDILOL 3.125 MG TAB GT SCH ×2 (10:00→21:05)
[2022-12-11] MEDS: CHOLECALCIFEROL (VITD3) 1,000UNIT=25mCg TAB PO SCH (10:00)
[2022-12-11] MEDS: PANTOPRAZOLE 40 MG/10 ML VIAL INJ IV SCH ×2 (10:22→21:04)
[2022-12-11] MEDS: CEFEPIME 1GM/ 50ML 50 ML IV SCH (10:23)
[2022-12-11] MEDS: methylPREDNISolone SOD SUCC 40 MG/ML VL IV SCH (10:23)
[2022-12-11] MEDS: DOXYCYCLINE 100MG/250ML 250 ML IV SCH ×2 (12:56→23:28)
[2022-12-11] MEDS: D5W 5% IV SCH (18:42)
[2022-12-11] MEDS: AMIODARONE HCL IV SCH (18:42)
[2022-12-11] MEDS ORDERED: AMINO ACID INFUSION IN D10W 1,000 ML IV NR (20:00)
[2022-12-12] VITALS (106 sets, daily range): BP systolic 84–170; BP diastolic 32–80
[2022-12-12] MEDS: PROPOFOL 100 ML IV SCH ×2 (00:56→06:17)
[2022-12-12] MEDS: IPRATROPIUM BROM 0.5 MG/2.5ML INH SOL NEB SCH ×6 (01:47→22:30)
[2022-12-12] MEDS: ALBUTEROL SULF 2.5 MG/0.5ML(0.5%) NEB SOLN NEB SCH ×6 (01:47→22:30)
[2022-12-12] MEDS: MIDAZOLAM DRIP 50 mg/50mL 50 ML IV SCH (04:45)
[2022-12-12 04:48] LABS: Eosinophils # (auto) 0 10 ^3/uL (0-0.8); Eosinophils % (auto) 0.1 % (0.0-7.0); Hematocrit 21.6 % (41.0-53.0); Hemoglobin 7.3 g/dL (13.5-17.5); Mean Corpuscular Hemoglobin 27.9 pg (28.0-32.0); Mean Corpuscular Volume 82.9 fL (80.0-100.0); Nucleated Red Blood Cells % 0.2 %; Red Blood Cells 2.61 10^6/uL (4.5-5.90)
[2022-12-12 04:55] LABS: Basophils # (auto) 0.1 10 ^3/uL (0-0.2); Basophils % (auto) 0.5 % (0.0-2.0); Lymphocytes # (auto) 0.5 10 ^3/uL (0.4-5.4); Lymphocytes % (auto) 3.6 % (10.0-50.0); Mean Corpuscular Hgb Conc. 33.6 g/dL (32.0-36.0); Monocytes % (auto) 7.6 % (0.0-12.0); Neutrophils # (auto) 11.2 10 ^3/uL (1.6-8.6); Neutrophils % (auto) 88.2 % (37.0-80.0); Red Cell Distribution Width 18.8 % (11.8-14.3); White Blood Cell 12.7 10^3/uL (4.4-10.8)
[2022-12-12 05:09] LABS: Albumin 2.3 g/dL (3.4-5.0); Bilirubin, Total 0.7 mg/dL (0.2-1.0); Calcium 8.5 mg/dL (8.5-10.1); Magnesium 1.9 mg/dL (1.6-2.6); Potassium 4.6 mmol/L (3.5-5.1); Total Protein 5.3 g/dL (6.4-8.2)
[2022-12-12 05:39] LABS: BUN/Creatinine Ratio 28.4
[2022-12-12 05:41] LABS: Phosphorus 10.3 mg/dL (2.5-4.90)
[2022-12-12] MEDS: ACETYLCYSTEINE 20%(200MG/ML) SOL 4ML NEB SCH (05:45)
[2022-12-12] MEDS: InsuLIN REG 1unit/0.01ml Soln (100units/ml) SC SCH ×4 (06:00→23:54)
[2022-12-12] MEDS: ACCU-CHEK COMFORT CURVE STRIP VI SCH ×4 (06:13→23:54)
[2022-12-12] MEDS: INSULIN LANTUS (GLARGINE) 1 /0.01ml (100units/ml) SC SCH (06:13)
[2022-12-12] MEDS: FUROSEMIDE 100 MG/10ML VIAL IV SCH ×2 (06:17→18:54)
[2022-12-12] MEDS: NOREPINEPHRINE 8 MG/250ML KIT 250 ML IV SCH (09:15)
[2022-12-12] MEDS: CARVEDILOL 3.125 MG TAB GT SCH ×2 (10:00→21:52)
[2022-12-12] MEDS: CHOLECALCIFEROL (VITD3) 1,000UNIT=25mCg TAB PO SCH (10:00)
[2022-12-12] MEDS: PANTOPRAZOLE 40 MG/10 ML VIAL INJ IV SCH ×2 (10:30→21:51)
[2022-12-12] MEDS: methylPREDNISolone SOD SUCC 40 MG/ML VL IV SCH (10:30)
[2022-12-12] MEDS: CEFEPIME 1GM/ 50ML 50 ML IV SCH (10:30)
[2022-12-12] MEDS ORDERED: METOCLOPRAMIDE HCL 5MG/ml INJ 2ml VIAL IV ONE (12:45)
[2022-12-12] MEDS: DOXYCYCLINE 100MG/250ML 250 ML IV SCH ×2 (14:45→23:55)
[2022-12-12] MEDS: SODIUM CHL 0.9% IV SCH ×2 (17:15→20:27)
[2022-12-12] MEDS: DEXMEDETOMIDINE IV SCH ×2 (17:15→20:27)
[2022-12-12] MEDS: CALCIUM ACETATE 667 MG CAP PO SCH (18:00)
[2022-12-12] MEDS: D5W 5% IV SCH (18:54)
[2022-12-12] MEDS: AMIODARONE HCL IV SCH (18:54)
[2022-12-12] MEDS ORDERED: AMINO ACID INFUSION IN D10W 1,000 ML IV NR (20:00)
[2022-12-13] VITALS (106 sets, daily range): BP systolic 61–179; BP diastolic 31–85
[2022-12-13] MEDS: IPRATROPIUM BROM 0.5 MG/2.5ML INH SOL NEB SCH ×6 (03:06→22:10)
[2022-12-13] MEDS: ALBUTEROL SULF 2.5 MG/0.5ML(0.5%) NEB SOLN NEB SCH ×6 (03:06→22:10)
[2022-12-13 04:37] LABS: Basophils # (auto) 0 10 ^3/uL (0-0.2); Basophils % (auto) 0.1 % (0.0-2.0); Eosinophils # (auto) 0 10 ^3/uL (0-0.8); Eosinophils % (auto) 0.2 % (0.0-7.0)
[2022-12-13 04:39] LABS: Hematocrit 21.1 % (41.0-53.0); Lymphocytes # (auto) 0.4 10 ^3/uL (0.4-5.4); Lymphocytes % (auto) 3.3 % (10.0-50.0); Mean Corpuscular Hemoglobin 27.9 pg (28.0-32.0); Mean Corpuscular Hgb Conc. 33.3 g/dL (32.0-36.0); Mean Corpuscular Volume 83.7 fL (80.0-100.0); Monocytes # (auto) 0.8 10 ^3/uL (0-1.3); Monocytes % (auto) 7.1 % (0.0-12.0); Neutrophils # (auto) 10.6 10 ^3/uL (1.6-8.6); Neutrophils % (auto) 89.3 % (37.0-80.0); Nucleated Red Blood Cells % 0.4 %; Red Blood Cells 2.52 10^6/uL (4.5-5.90); Red Cell Distribution Width 19.4 % (11.8-14.3); White Blood Cell 11.9 10^3/uL (4.4-10.8)
[2022-12-13 05:06] LABS: Albumin 2.3 g/dL (3.4-5.0); BUN/Creatinine Ratio 29.5; Bilirubin, Total 0.8 mg/dL (0.2-1.0); Calcium 8.3 mg/dL (8.5-10.1); Potassium 5.5 mmol/L (3.5-5.1); Total Protein 5.3 g/dL (6.4-8.2)
[2022-12-13] MEDS: FUROSEMIDE 100 MG/10ML VIAL IV SCH (05:43)
[2022-12-13] MEDS: INSULIN LANTUS (GLARGINE) 1 /0.01ml (100units/ml) SC SCH (05:44)
[2022-12-13] MEDS: ACCU-CHEK COMFORT CURVE STRIP VI SCH ×4 (05:44→23:37)
[2022-12-13] MEDS: InsuLIN REG 1unit/0.01ml Soln (100units/ml) SC SCH ×4 (05:44→23:38)
[2022-12-13] MEDS: SODIUM CHL 0.9% IV SCH ×3 (05:47→19:58)
[2022-12-13] MEDS: DEXMEDETOMIDINE IV SCH ×3 (05:47→19:58)
[2022-12-13] MEDS: CALCIUM ACETATE 667 MG CAP PO SCH ×3 (08:00→18:00)
[2022-12-13] MEDS: fentaNYL Drip 2500mCg/250mlNS 250 ML IV SCH (08:31)
[2022-12-13] MEDS: MIDAZOLAM DRIP 50 mg/50mL 50 ML IV SCH (08:31)
[2022-12-13] MEDS: NOREPINEPHRINE 8 MG/250ML KIT 250 ML IV SCH ×2 (09:15→12:15)
[2022-12-13] MEDS: methylPREDNISolone SOD SUCC 40 MG/ML VL IV SCH (09:32)
[2022-12-13] MEDS: PANTOPRAZOLE 40 MG/10 ML VIAL INJ IV SCH ×2 (09:32→21:46)
[2022-12-13] MEDS: CEFEPIME 1GM/ 50ML 50 ML IV SCH (09:32)
[2022-12-13] MEDS: CHOLECALCIFEROL (VITD3) 1,000UNIT=25mCg TAB PO SCH (10:00)
[2022-12-13] MEDS ORDERED: MORPHINE SULFATE INJ 2 MG/ml SYRG IV PRN (11:45)
[2022-12-13] MEDS: LORazepam 2MG/ML-1ML VIAL IV PRN (12:03)
[2022-12-13] MEDS ORDERED: ALBUMIN 25% 100 ML IV ONE ×2 (12:45→13:45)
[2022-12-13] MEDS ORDERED: Nepro With Carb Steady 1 Liter Bottle GT SCH (16:30)
[2022-12-13 19:00] LABS: INR 1.07 (0.9-1.15); Partial Thromboplastin Time 34.4 sec (24.6-33.4)
[2022-12-13 19:16] LABS: % Iron Saturation 86.3 % (20-55); BUN/Creatinine Ratio 27.5; Calcium 8.6 mg/dL (8.5-10.1); Potassium 5.2 mmol/L (3.5-5.1)
[2022-12-13] MEDS ORDERED: [UNRECOGNIZED DRUG - OTHER] IV NR (20:00)
[2022-12-13] MEDS ORDERED: AMINO ACID INFUSION IN D10W 1,000 ML IV NR (20:00)
[2022-12-13] MEDS ORDERED: CALC IV NR (20:00)
[2022-12-13] MEDS: PROPOFOL 100 ML IV SCH (20:15)
[2022-12-13] MEDS ORDERED: EPOETIN ALFA-EPBX 10,000 UNIT/1ML VIAL SC ONE (21:00)
[2022-12-13] MEDS: BUMETANIDE INJECTION 12.5 MG in GIVE UN-DILUTED 0 ML IV SCH (21:00)
[2022-12-13] MEDS: CARVEDILOL 3.125 MG TAB GT SCH (21:46)
[2022-12-13] MEDS: AMIODARONE HCL 200 MG TAB NG SCH (21:47)
[2022-12-13] MEDS ORDERED: SODIUM CHL 0.9% IV SCH (23:00)
[2022-12-13] MEDS ORDERED: DOXYCYCLINE HYC IV SCH (23:00)
[2022-12-13] MEDS: hydrALAZINE HCL 20 MG/ML VL IV PRN (23:09)
[2022-12-14] VITALS (95 sets, daily range): BP systolic 90–192; BP diastolic 33–98
[2022-12-14] MEDS: LORazepam 2MG/ML-1ML VIAL IV PRN ×2 (00:15→23:28)
[2022-12-14] MEDS: ALBUTEROL SULF 2.5 MG/0.5ML(0.5%) NEB SOLN NEB SCH ×6 (02:12→22:01)
[2022-12-14] MEDS: IPRATROPIUM BROM 0.5 MG/2.5ML INH SOL NEB SCH ×6 (02:12→22:02)
[2022-12-14] MEDS: DEXMEDETOMIDINE IV SCH ×3 (03:15→22:04)
[2022-12-14] MEDS: SODIUM CHL 0.9% IV SCH ×4 (03:15→22:04)
[2022-12-14 03:50] LABS: Eosinophils # (auto) 0 10 ^3/uL (0-0.8); Mean Corpuscular Hemoglobin 27.5 pg (28.0-32.0); Mean Corpuscular Hgb Conc. 32.9 g/dL (32.0-36.0); Nucleated Red Blood Cells % 0.2 %
[2022-12-14 03:52] LABS: Basophils # (auto) 0 10 ^3/uL (0-0.2); Basophils % (auto) 0.2 % (0.0-2.0); Hemoglobin 7.9 g/dL (13.5-17.5); Lymphocytes # (auto) 0.4 10 ^3/uL (0.4-5.4); Lymphocytes % (auto) 3.6 % (10.0-50.0); Mean Corpuscular Volume 83.5 fL (80.0-100.0); Monocytes # (auto) 0.7 10 ^3/uL (0-1.3); Monocytes % (auto) 6.4 % (0.0-12.0); Neutrophils # (auto) 10.4 10 ^3/uL (1.6-8.6); Neutrophils % (auto) 89.8 % (37.0-80.0); Red Blood Cells 2.87 10^6/uL (4.5-5.90); Red Cell Distribution Width 18.2 % (11.8-14.3); White Blood Cell 11.5 10^3/uL (4.4-10.8)
[2022-12-14 04:08] LABS: Albumin 2.5 g/dL (3.4-5.0); Calcium 8.6 mg/dL (8.5-10.1); Potassium 5.3 mmol/L (3.5-5.1)
[2022-12-14 04:12] LABS: BUN/Creatinine Ratio 28.6; Total Protein 5.6 g/dL (6.4-8.2)
[2022-12-14] MEDS: fentaNYL Drip 2500mCg/250mlNS 250 ML IV SCH (04:45)
[2022-12-14] MEDS: INSULIN LANTUS (GLARGINE) 1 /0.01ml (100units/ml) SC SCH (05:51)
[2022-12-14] MEDS: ACCU-CHEK COMFORT CURVE STRIP VI SCH ×3 (05:51→18:15)
[2022-12-14] MEDS: InsuLIN REG 1unit/0.01ml Soln (100units/ml) SC SCH ×3 (05:51→18:15)
[2022-12-14] MEDS ORDERED: SODIUM BICARBONATE 8.4 % INJ 50ML VIAL IV ONE (07:30)
[2022-12-14] MEDS: CALCIUM ACETATE 667 MG CAP PO SCH ×3 (08:00→17:53)
[2022-12-14] MEDS: BUMETANIDE INJECTION 12.5 MG in GIVE UN-DILUTED 0 ML IV SCH (09:50)
[2022-12-14] MEDS: CARVEDILOL 3.125 MG TAB GT SCH ×2 (09:53→22:04)
[2022-12-14] MEDS: CEFEPIME 1 GM in SODIUM CHL 0.9% 50 ML IV SCH (09:53)
[2022-12-14] MEDS: AMIODARONE HCL 200 MG TAB NG SCH ×2 (09:54→22:02)
[2022-12-14] MEDS: PANTOPRAZOLE 40 MG/10 ML VIAL INJ IV SCH ×2 (09:54→22:04)
[2022-12-14] MEDS: methylPREDNISolone SOD SUCC 40 MG/ML VL IV SCH (09:54)
[2022-12-14] MEDS: CHOLECALCIFEROL (VITD3) 1,000UNIT=25mCg TAB PO SCH (09:55)
[2022-12-14] MEDS: DOXYCYCLINE HYC IV SCH (14:16)
[2022-12-14 15:29] LABS: Hematocrit 22.2 % (41.0-53.0); Hemoglobin 7.5 g/dL (13.5-17.5); Mean Corpuscular Hemoglobin 27.7 pg (28.0-32.0); Mean Corpuscular Hgb Conc. 33.7 g/dL (32.0-36.0); Mean Corpuscular Volume 82.4 fL (80.0-100.0); Red Blood Cells 2.69 10^6/uL (4.5-5.90); Red Cell Distribution Width 18.8 % (11.8-14.3)
[2022-12-14 15:32] LABS: Basophils % (manual) 0 (0.0-2.0); Blast Cells 0; Eosinophils % (manual) 0 (0-7); Metamyelocytes % 0; Myelocytes % 0; Promyelocytes % 0; Reactive Lymphocytes 0
[2022-12-14] MEDS ORDERED: HEPARIN 1,000 UNITS/ml 1ML VIAL IV ONE (17:15)
[2022-12-14 18:37] LABS: Band Neutrophils % (manual) 2; Lymphocytes % (manual) 2 (10.0-50.0); Monocytes % (manual) 8 (0-12)
[2022-12-14] MEDS: PROPOFOL 100 ML IV SCH (20:15)
[2022-12-14] MEDS: hydrALAZINE HCL 20 MG/ML VL IV PRN (22:05)
[2022-12-15] VITALS (76 sets, daily range): BP systolic 79–187; BP diastolic 30–84
[2022-12-15] MEDS: InsuLIN REG 1unit/0.01ml Soln (100units/ml) SC SCH ×4 (00:30→18:21)
[2022-12-15] MEDS: ACCU-CHEK COMFORT CURVE STRIP VI SCH ×4 (00:31→18:20)
[2022-12-15] MEDS: IPRATROPIUM BROM 0.5 MG/2.5ML INH SOL NEB SCH ×6 (02:02→22:00)
[2022-12-15] MEDS: ALBUTEROL SULF 2.5 MG/0.5ML(0.5%) NEB SOLN NEB SCH ×6 (02:02→22:00)
[2022-12-15] MEDS: SODIUM CHL 0.9% IV SCH ×3 (02:25→13:49)
[2022-12-15] MEDS: DOXYCYCLINE HYC IV SCH ×2 (02:25→13:49)
[2022-12-15 04:20] LABS: Basophils # (auto) 0 10 ^3/uL (0-0.2); Eosinophils # (auto) 0 10 ^3/uL (0-0.8); Lymphocytes # (auto) 0.2 10 ^3/uL (0.4-5.4); Lymphocytes % (auto) 1.4 % (10.0-50.0); Monocytes # (auto) 1.1 10 ^3/uL (0-1.3); Nucleated Red Blood Cells % 0.1 %
[2022-12-15 04:23] LABS: Basophils % (auto) 0.2 % (0.0-2.0); Eosinophils % (auto) 0.1 % (0.0-7.0); Hemoglobin 8.5 g/dL (13.5-17.5); Mean Corpuscular Volume 82.4 fL (80.0-100.0); Monocytes % (auto) 6.2 % (0.0-12.0); Neutrophils # (auto) 16.4 10 ^3/uL (1.6-8.6); Neutrophils % (auto) 92.1 % (37.0-80.0); Red Blood Cells 3.03 10^6/uL (4.5-5.90); Red Cell Distribution Width 18.3 % (11.8-14.3); White Blood Cell 17.8 10^3/uL (4.4-10.8)
[2022-12-15 04:36] LABS: BUN/Creatinine Ratio 29.1; Calcium 7.9 mg/dL (8.5-10.1); Potassium 5.5 mmol/L (3.5-5.1)
[2022-12-15] MEDS: fentaNYL Drip 2500mCg/250mlNS 250 ML IV SCH ×2 (04:45→15:27)
[2022-12-15] MEDS: DEXMEDETOMIDINE IV SCH (05:10)
[2022-12-15] MEDS: INSULIN LANTUS (GLARGINE) 1 /0.01ml (100units/ml) SC SCH (07:00)
[2022-12-15] MEDS: CALCIUM ACETATE 667 MG CAP PO SCH ×3 (08:00→18:00)
[2022-12-15] MEDS: BUMETANIDE INJECTION 12.5 MG in GIVE UN-DILUTED 0 ML IV SCH (08:02)
[2022-12-15 08:10] LABS: INR 1.14 (0.9-1.15); Partial Thromboplastin Time 34.3 sec (24.6-33.4)
[2022-12-15] MEDS: ALBUMIN 25% 100 ML IV SCH ×2 (08:25→08:59)
[2022-12-15] MEDS: NOREPINEPHRINE 8 MG/250ML KIT 250 ML IV SCH ×2 (09:15→21:51)
[2022-12-15] MEDS ORDERED: SODIUM BICARBONATE 8.4 % INJ 50ML VIAL IV ONE (09:45)
[2022-12-15] MEDS: methylPREDNISolone SOD SUCC 40 MG/ML VL IV SCH (10:20)
[2022-12-15] MEDS: CEFEPIME 1 GM in SODIUM CHL 0.9% 50 ML IV SCH (10:20)
[2022-12-15] MEDS: AMIODARONE HCL 200 MG TAB NG SCH ×2 (10:21→21:35)
[2022-12-15] MEDS: CARVEDILOL 3.125 MG TAB GT SCH ×2 (10:21→22:17)
[2022-12-15] MEDS: CHOLECALCIFEROL (VITD3) 1,000UNIT=25mCg TAB PO SCH (10:22)
[2022-12-15] MEDS: PANTOPRAZOLE 40 MG/10 ML VIAL INJ IV SCH ×2 (10:22→22:13)
[2022-12-15] MEDS: LORazepam 2MG/ML-1ML VIAL IV PRN (13:16)
[2022-12-15] MEDS: hydrALAZINE HCL 20 MG/ML VL IV PRN (14:36)
[2022-12-15] MEDS: PROPOFOL 100 ML IV SCH ×2 (15:57→21:10)
[2022-12-15] MEDS ORDERED: AMIODARONE HCL IV SCH ×2 (16:15→22:15)
[2022-12-15] MEDS ORDERED: D5W 5% IV SCH ×2 (16:15→22:15)
[2022-12-15] MEDS ORDERED: EPOETIN ALFA-EPBX 4,000 UNIT/ML VIAL SC ONE (21:00)
[2022-12-16] VITALS (107 sets, daily range): BP systolic 76–178; BP diastolic 33–77
[2022-12-16] MEDS: ACCU-CHEK COMFORT CURVE STRIP VI SCH ×5 (00:51→23:52)
[2022-12-16] MEDS: InsuLIN REG 1unit/0.01ml Soln (100units/ml) SC SCH ×5 (00:53→23:58)
[2022-12-16] MEDS: DOXYCYCLINE HYC IV SCH ×2 (02:08→14:41)
[2022-12-16] MEDS: PROPOFOL 100 ML IV SCH ×3 (02:08→14:41)
[2022-12-16] MEDS: SODIUM CHL 0.9% IV SCH ×3 (02:08→14:48)
[2022-12-16] MEDS: ALBUTEROL SULF 2.5 MG/0.5ML(0.5%) NEB SOLN NEB SCH ×6 (02:12→22:14)
[2022-12-16] MEDS: IPRATROPIUM BROM 0.5 MG/2.5ML INH SOL NEB SCH ×6 (02:13→22:14)
[2022-12-16 04:07] LABS: Basophils # (auto) 0 10 ^3/uL (0-0.2); Eosinophils # (auto) 0 10 ^3/uL (0-0.8); Lymphocytes # (auto) 0.2 10 ^3/uL (0.4-5.4); Nucleated Red Blood Cells % 0.1 %; White Blood Cell 13.1 10^3/uL (4.4-10.8)
[2022-12-16 04:10] LABS: Basophils % (auto) 0.1 % (0.0-2.0); Hematocrit 20.9 % (41.0-53.0); Lymphocytes % (auto) 1.8 % (10.0-50.0); Mean Corpuscular Hemoglobin 27.6 pg (28.0-32.0); Mean Corpuscular Hgb Conc. 33.5 g/dL (32.0-36.0); Mean Corpuscular Volume 82.5 fL (80.0-100.0); Monocytes % (auto) 7.4 % (0.0-12.0); Neutrophils # (auto) 11.9 10 ^3/uL (1.6-8.6); Neutrophils % (auto) 90.7 % (37.0-80.0); Red Blood Cells 2.53 10^6/uL (4.5-5.90); Red Cell Distribution Width 18.4 % (11.8-14.3)
[2022-12-16 04:31] LABS: Potassium 4.6 mmol/L (3.5-5.1)
[2022-12-16] MEDS: INSULIN LANTUS (GLARGINE) 1 /0.01ml (100units/ml) SC SCH (06:57)
[2022-12-16] MEDS: CALCIUM ACETATE 667 MG CAP PO SCH ×3 (08:00→17:35)
[2022-12-16] MEDS: fentaNYL Drip 2500mCg/250mlNS 250 ML IV SCH (09:48)
[2022-12-16] MEDS: CARVEDILOL 3.125 MG TAB GT SCH ×2 (09:49→21:41)
[2022-12-16] MEDS: methylPREDNISolone SOD SUCC 40 MG/ML VL IV SCH (14:39)
[2022-12-16] MEDS: AMIODARONE HCL 200 MG TAB NG SCH (14:39)
[2022-12-16] MEDS: PANTOPRAZOLE 40 MG/10 ML VIAL INJ IV SCH ×2 (14:39→21:40)
[2022-12-16] MEDS: CHOLECALCIFEROL (VITD3) 1,000UNIT=25mCg TAB PO SCH (14:40)
[2022-12-16] MEDS: CEFEPIME 1 GM in SODIUM CHL 0.9% 50 ML IV SCH (14:41)
[2022-12-16] MEDS: DEXMEDETOMIDINE IV SCH (14:48)
[2022-12-16] MEDS ORDERED: EPOETIN ALFA-EPBX 4,000 UNIT/ML VIAL SC ONE (21:00)
[2022-12-16] MEDS ORDERED: EPOETIN ALFA-EPBX 10,000 UNIT/1ML VIAL SC ONE (21:00)
[2022-12-17] VITALS (90 sets, daily range): BP systolic 79–215; BP diastolic 31–100
[2022-12-17] MEDS: IPRATROPIUM BROM 0.5 MG/2.5ML INH SOL NEB SCH ×6 (02:26→22:31)
[2022-12-17] MEDS: ALBUTEROL SULF 2.5 MG/0.5ML(0.5%) NEB SOLN NEB SCH ×6 (02:26→22:30)
[2022-12-17] MEDS: SODIUM CHL 0.9% IV SCH ×4 (02:33→23:16)
[2022-12-17] MEDS: DOXYCYCLINE HYC IV SCH ×2 (02:33→14:00)
[2022-12-17 04:43] LABS: Hemoglobin 8.8 g/dL (13.5-17.5)
[2022-12-17] MEDS: hydrALAZINE HCL 20 MG/ML VL IV PRN (04:44)
[2022-12-17 04:45] LABS: Hematocrit 26.6 % (41.0-53.0); Mean Corpuscular Hemoglobin 27.5 pg (28.0-32.0); Mean Corpuscular Volume 83.3 fL (80.0-100.0); Red Blood Cells 3.19 10^6/uL (4.5-5.90); Red Cell Distribution Width 18.1 % (11.8-14.3)
[2022-12-17 04:47] LABS: Basophils % (manual) 0 (0.0-2.0); Blast Cells 0; Eosinophils % (manual) 0 (0-7); Metamyelocytes % 0; Myelocytes % 0; Promyelocytes % 0; Reactive Lymphocytes 0
[2022-12-17 05:00] LABS: Calcium 9.1 mg/dL (8.5-10.1); Magnesium 2.3 mg/dL (1.6-2.6)
[2022-12-17 05:04] LABS: BUN/Creatinine Ratio 23.3
[2022-12-17 05:26] LABS: Band Neutrophils % (manual) 8; Lymphocytes % (manual) 9 (10.0-50.0); Monocytes % (manual) 1 (0-12)
[2022-12-17 05:47] LABS: Phosphorus 9.4 mg/dL (2.5-4.90)
[2022-12-17] MEDS ORDERED: BUMETANIDE 2.5mg/10ml (0.25 mg/ml) INJ IV ONE (06:30)
[2022-12-17] MEDS: ACCU-CHEK COMFORT CURVE STRIP VI SCH ×3 (06:39→17:46)
[2022-12-17] MEDS: InsuLIN REG 1unit/0.01ml Soln (100units/ml) SC SCH ×3 (06:40→17:48)
[2022-12-17] MEDS: DEXMEDETOMIDINE IV SCH ×2 (06:52→23:16)
[2022-12-17] MEDS: NOREPINEPHRINE 8 MG/250ML KIT 250 ML IV SCH (06:53)
[2022-12-17] MEDS: INSULIN LANTUS (GLARGINE) 1 /0.01ml (100units/ml) SC SCH (07:00)
[2022-12-17] MEDS: PANTOPRAZOLE 40 MG/10 ML VIAL INJ IV SCH ×2 (09:56→21:49)
[2022-12-17] MEDS: methylPREDNISolone SOD SUCC 40 MG/ML VL IV SCH (09:56)
[2022-12-17] MEDS: CHOLECALCIFEROL (VITD3) 1,000UNIT=25mCg TAB PO SCH (09:57)
[2022-12-17] MEDS: CARVEDILOL 3.125 MG TAB GT SCH ×2 (09:57→21:49)
[2022-12-17] MEDS: CALCIUM ACETATE 667 MG CAP PO SCH ×3 (09:57→17:47)
[2022-12-17] MEDS: CEFEPIME 1 GM in SODIUM CHL 0.9% 50 ML IV SCH (10:00)
[2022-12-17] MEDS: fentaNYL Drip 2500mCg/250mlNS 250 ML IV SCH ×2 (18:15→23:23)
[2022-12-17] MEDS: PROPOFOL 100 ML IV SCH (18:58)
[2022-12-18] VITALS (100 sets, daily range): BP systolic 80–164; BP diastolic 41–115
[2022-12-18] MEDS: ACCU-CHEK COMFORT CURVE STRIP VI SCH ×4 (00:59→17:16)
[2022-12-18] MEDS: IPRATROPIUM BROM 0.5 MG/2.5ML INH SOL NEB SCH ×6 (01:44→23:59)
[2022-12-18] MEDS: ALBUTEROL SULF 2.5 MG/0.5ML(0.5%) NEB SOLN NEB SCH ×6 (01:44→23:59)
[2022-12-18] MEDS: SODIUM CHL 0.9% IV SCH ×3 (03:04→14:00)
[2022-12-18] MEDS: DOXYCYCLINE HYC IV SCH ×2 (03:04→14:00)
[2022-12-18] MEDS: InsuLIN REG 1unit/0.01ml Soln (100units/ml) SC SCH ×4 (06:00→17:16)
[2022-12-18 06:46] LABS: Basophils # (auto) 0 10 ^3/uL (0-0.2); Eosinophils # (auto) 0 10 ^3/uL (0-0.8); Hemoglobin 7.7 g/dL (13.5-17.5); Lymphocytes # (auto) 0.4 10 ^3/uL (0.4-5.4); Monocytes # (auto) 0.6 10 ^3/uL (0-1.3)
[2022-12-18 06:47] LABS: Basophils % (auto) 0.1 % (0.0-2.0); Hematocrit 23.1 % (41.0-53.0); Lymphocytes % (auto) 4.7 % (10.0-50.0); Mean Corpuscular Hgb Conc. 33.5 g/dL (32.0-36.0); Mean Corpuscular Volume 83.7 fL (80.0-100.0); Monocytes % (auto) 7.3 % (0.0-12.0); Neutrophils # (auto) 7.7 10 ^3/uL (1.6-8.6); Neutrophils % (auto) 87.9 % (37.0-80.0); Red Blood Cells 2.77 10^6/uL (4.5-5.90); Red Cell Distribution Width 18.4 % (11.8-14.3); White Blood Cell 8.8 10^3/uL (4.4-10.8)
[2022-12-18] MEDS: INSULIN LANTUS (GLARGINE) 1 /0.01ml (100units/ml) SC SCH (07:00)
[2022-12-18 07:04] LABS: Albumin 2.4 g/dL (3.4-5.0); BUN/Creatinine Ratio 23.5; Calcium 9.2 mg/dL (8.5-10.1); Potassium 4.8 mmol/L (3.5-5.1)
[2022-12-18 07:07] LABS: Bilirubin, Total 0.9 mg/dL (0.2-1.0); Total Protein 5.4 g/dL (6.4-8.2)
[2022-12-18] MEDS: NOREPINEPHRINE 8 MG/250ML KIT 250 ML IV SCH (07:18)
[2022-12-18] MEDS: PANTOPRAZOLE 40 MG/10 ML VIAL INJ IV SCH ×2 (08:50→21:58)
[2022-12-18] MEDS: methylPREDNISolone SOD SUCC 40 MG/ML VL IV SCH (08:50)
[2022-12-18] MEDS: CALCIUM ACETATE 667 MG CAP PO SCH ×3 (08:51→18:00)
[2022-12-18] MEDS: CHOLECALCIFEROL (VITD3) 1,000UNIT=25mCg TAB PO SCH (08:51)
[2022-12-18] MEDS: CARVEDILOL 3.125 MG TAB GT SCH ×2 (08:51→21:58)
[2022-12-18] MEDS: CEFEPIME 1 GM in SODIUM CHL 0.9% 50 ML IV SCH (08:52)
[2022-12-18] MEDS: LACTULOSE 20Gm/30ML SOLN PO SCH ×2 (11:05→18:00)
[2022-12-18] MEDS: DEXMEDETOMIDINE IV SCH (11:43)
[2022-12-18 11:50] LABS: Hematocrit 24.5 % (41.0-53.0)
[2022-12-18] MEDS ORDERED: SODIUM CHL 0.9% 1000 ML BAG XX ONE (14:00)
[2022-12-18] MEDS: PROPOFOL 100 ML IV SCH (16:20)
[2022-12-18 17:01] LABS: Hematocrit 29.4 % (41.0-53.0); Hemoglobin 9.5 g/dL (13.5-17.5)
[2022-12-18] MEDS ORDERED: EPOETIN ALFA-EPBX 10,000 UNIT/1ML VIAL SC ONE (21:00)
[2022-12-19] VITALS (103 sets, daily range): BP systolic 77–189; BP diastolic 32–108
[2022-12-19] MEDS: ACCU-CHEK COMFORT CURVE STRIP VI SCH ×4 (00:38→17:17)
[2022-12-19] MEDS: LACTULOSE 20Gm/30ML SOLN PO SCH ×4 (00:39→15:37)
[2022-12-19] MEDS: DEXMEDETOMIDINE IV SCH ×2 (01:19→22:05)
[2022-12-19] MEDS: SODIUM CHL 0.9% IV SCH ×4 (01:19→22:05)
[2022-12-19] MEDS: DOXYCYCLINE HYC IV SCH ×2 (01:52→13:07)
[2022-12-19] MEDS: ALBUTEROL SULF 2.5 MG/0.5ML(0.5%) NEB SOLN NEB SCH ×6 (02:42→22:22)
[2022-12-19] MEDS: IPRATROPIUM BROM 0.5 MG/2.5ML INH SOL NEB SCH ×6 (02:43→22:22)
[2022-12-19 04:35] LABS: Albumin 2.7 g/dL (3.4-5.0); Calcium 9.5 mg/dL (8.5-10.1); Potassium 4.9 mmol/L (3.5-5.1)
[2022-12-19 05:04] LABS: Hematocrit 26.4 % (41.0-53.0); Hemoglobin 8.7 g/dL (13.5-17.5); Mean Corpuscular Hemoglobin 28.1 pg (28.0-32.0); Mean Corpuscular Volume 85.2 fL (80.0-100.0); Red Cell Distribution Width 17.8 % (11.8-14.3); White Blood Cell 9.8 10^3/uL (4.4-10.8)
[2022-12-19] MEDS: InsuLIN REG 1unit/0.01ml Soln (100units/ml) SC SCH ×4 (06:00→17:18)
[2022-12-19] MEDS: INSULIN LANTUS (GLARGINE) 1 /0.01ml (100units/ml) SC SCH (07:00)
[2022-12-19] MEDS: NOREPINEPHRINE 8 MG/250ML KIT 250 ML IV SCH ×2 (07:28→23:23)
[2022-12-19] MEDS: CARVEDILOL 3.125 MG TAB GT SCH ×2 (09:01→22:14)
[2022-12-19] MEDS: CALCIUM ACETATE 667 MG CAP PO SCH ×3 (09:12→17:10)
[2022-12-19] MEDS: PANTOPRAZOLE 40 MG/10 ML VIAL INJ IV SCH ×2 (09:12→22:13)
[2022-12-19] MEDS: CHOLECALCIFEROL (VITD3) 1,000UNIT=25mCg TAB PO SCH (09:13)
[2022-12-19] MEDS: methylPREDNISolone SOD SUCC 40 MG/ML VL IV SCH (09:13)
[2022-12-19] MEDS: CEFEPIME 1 GM in SODIUM CHL 0.9% 50 ML IV SCH (09:13)
[2022-12-19] MEDS ORDERED: ALBUMIN 25% 100 ML IV PRN (09:45)
[2022-12-19] MEDS: fentaNYL Drip 2500mCg/250mlNS 250 ML IV SCH (16:16)
[2022-12-19] MEDS: PROPOFOL 100 ML IV SCH (17:18)
[2022-12-19] MEDS: AMIODARONE HCL 200 MG TAB PO SCH (22:13)
[2022-12-20] VITALS (100 sets, daily range): BP systolic 72–155; BP diastolic 31–87
[2022-12-20] MEDS: ACCU-CHEK COMFORT CURVE STRIP VI SCH ×5 (00:15→23:45)
[2022-12-20] MEDS: InsuLIN REG 1unit/0.01ml Soln (100units/ml) SC SCH ×5 (00:15→23:45)
[2022-12-20] MEDS: SODIUM CHL 0.9% IV SCH ×5 (01:53→21:00)
[2022-12-20] MEDS: DOXYCYCLINE HYC IV SCH ×2 (01:53→15:06)
[2022-12-20] MEDS: ALBUTEROL SULF 2.5 MG/0.5ML(0.5%) NEB SOLN NEB SCH ×6 (02:16→22:22)
[2022-12-20] MEDS: IPRATROPIUM BROM 0.5 MG/2.5ML INH SOL NEB SCH ×6 (02:16→22:22)
[2022-12-20 03:47] LABS: Basophils # (auto) 0 10 ^3/uL (0-0.2); Eosinophils # (auto) 0 10 ^3/uL (0-0.8); Mean Corpuscular Hgb Conc. 32.4 g/dL (32.0-36.0); Monocytes # (auto) 0.9 10 ^3/uL (0-1.3)
[2022-12-20 03:51] LABS: Basophils % (auto) 0.1 % (0.0-2.0); Hematocrit 26.6 % (41.0-53.0); Hemoglobin 8.6 g/dL (13.5-17.5); Lymphocytes # (auto) 0.7 10 ^3/uL (0.4-5.4); Lymphocytes % (auto) 6.7 % (10.0-50.0); Mean Corpuscular Hemoglobin 27.6 pg (28.0-32.0); Mean Corpuscular Volume 85.3 fL (80.0-100.0); Monocytes % (auto) 8.1 % (0.0-12.0); Neutrophils # (auto) 9.5 10 ^3/uL (1.6-8.6); Neutrophils % (auto) 85.1 % (37.0-80.0); Nucleated Red Blood Cells % 0.5 %; Red Blood Cells 3.11 10^6/uL (4.5-5.90); Red Cell Distribution Width 18.1 % (11.8-14.3); White Blood Cell 11.1 10^3/uL (4.4-10.8)
[2022-12-20 03:59] LABS: Calcium 9.3 mg/dL (8.5-10.1); Potassium 5.2 mmol/L (3.5-5.1)
[2022-12-20 04:01] LABS: BUN/Creatinine Ratio 20.9
[2022-12-20 04:27] LABS: Phosphorus 9.2 mg/dL (2.5-4.90)
[2022-12-20] MEDS: fentaNYL Drip 2500mCg/250mlNS 250 ML IV SCH ×2 (05:02→19:00)
[2022-12-20] MEDS: DEXMEDETOMIDINE IV SCH ×3 (05:03→21:00)
[2022-12-20] MEDS: LACTULOSE 20Gm/30ML SOLN PO SCH ×5 (05:34→23:29)
[2022-12-20] MEDS: INSULIN LANTUS (GLARGINE) 1 /0.01ml (100units/ml) SC SCH (05:35)
[2022-12-20] MEDS ORDERED: SODIUM CHL 0.9% 1000 ML BAG XX ONE (07:00)
[2022-12-20] MEDS: CALCIUM ACETATE 667 MG CAP PO SCH ×3 (08:00→18:00)
[2022-12-20] MEDS: CARVEDILOL 3.125 MG TAB GT SCH ×2 (10:00→21:25)
[2022-12-20] MEDS: PANTOPRAZOLE 40 MG/10 ML VIAL INJ IV SCH ×2 (10:29→21:24)
[2022-12-20] MEDS: AMIODARONE HCL 200 MG TAB PO SCH ×2 (10:29→21:25)
[2022-12-20] MEDS: CHOLECALCIFEROL (VITD3) 1,000UNIT=25mCg TAB PO SCH (10:30)
[2022-12-20] MEDS: CEFEPIME 1 GM in SODIUM CHL 0.9% 50 ML IV SCH (11:32)
[2022-12-20] MEDS: ALBUMIN 25% 100 ML IV SCH ×2 (16:34→17:00)
[2022-12-20] MEDS: NOREPINEPHRINE 8 MG/250ML KIT 250 ML IV SCH (19:00)
[2022-12-20] MEDS: PROPOFOL 100 ML IV SCH (20:15)
[2022-12-20] MEDS ORDERED: EPOETIN ALFA-EPBX 10,000 UNIT/1ML VIAL SC ONE (21:00)
[2022-12-20] MEDS: LORazepam 2MG/ML-1ML VIAL IV PRN (22:49)
[2022-12-21] VITALS (101 sets, daily range): BP systolic 66–175; BP diastolic 25–95
[2022-12-21] MEDS: SODIUM CHL 0.9% IV SCH ×3 (01:47→16:46)
[2022-12-21] MEDS: DOXYCYCLINE HYC IV SCH ×2 (01:47→16:46)
[2022-12-21] MEDS: IPRATROPIUM BROM 0.5 MG/2.5ML INH SOL NEB SCH ×6 (02:28→22:50)
[2022-12-21] MEDS: ALBUTEROL SULF 2.5 MG/0.5ML(0.5%) NEB SOLN NEB SCH ×6 (02:28→22:50)
[2022-12-21] MEDS ORDERED: DexmedeTOMIDine 4 ML IV ONE (04:20)
[2022-12-21] MEDS: DEXMEDETOMIDINE IV SCH (04:25)
[2022-12-21 04:41] LABS: Calcium 8.7 mg/dL (8.5-10.1); Potassium 4.5 mmol/L (3.5-5.1)
[2022-12-21 04:43] LABS: BUN/Creatinine Ratio 19.7
[2022-12-21 04:44] LABS: Basophils # (auto) 0 10 ^3/uL (0-0.2); Basophils % (auto) 0.1 % (0.0-2.0); Eosinophils # (auto) 0.1 10 ^3/uL (0-0.8); Mean Corpuscular Volume 84.9 fL (80.0-100.0); Nucleated Red Blood Cells % 0.5 %
[2022-12-21 04:45] LABS: Eosinophils % (auto) 0.7 % (0.0-7.0); Hematocrit 24.4 % (41.0-53.0); Hemoglobin 7.9 g/dL (13.5-17.5); Lymphocytes # (auto) 0.4 10 ^3/uL (0.4-5.4); Lymphocytes % (auto) 4.1 % (10.0-50.0); Mean Corpuscular Hemoglobin 27.6 pg (28.0-32.0); Mean Corpuscular Hgb Conc. 32.5 g/dL (32.0-36.0); Monocytes # (auto) 0.8 10 ^3/uL (0-1.3); Monocytes % (auto) 7.8 % (0.0-12.0); Neutrophils # (auto) 9.5 10 ^3/uL (1.6-8.6); Neutrophils % (auto) 87.3 % (37.0-80.0); Red Blood Cells 2.88 10^6/uL (4.5-5.90); Red Cell Distribution Width 18.7 % (11.8-14.3); White Blood Cell 10.9 10^3/uL (4.4-10.8)
[2022-12-21] MEDS: ACCU-CHEK COMFORT CURVE STRIP VI SCH ×3 (05:49→17:23)
[2022-12-21] MEDS: LACTULOSE 20Gm/30ML SOLN PO SCH ×4 (05:49→23:51)
[2022-12-21] MEDS: InsuLIN REG 1unit/0.01ml Soln (100units/ml) SC SCH ×3 (05:49→17:23)
[2022-12-21] MEDS: NOREPINEPHRINE 8 MG/250ML KIT 250 ML IV SCH ×2 (06:30→16:54)
[2022-12-21] MEDS: fentaNYL Drip 2500mCg/250mlNS 250 ML IV SCH ×2 (06:33→20:45)
[2022-12-21] MEDS: INSULIN LANTUS (GLARGINE) 1 /0.01ml (100units/ml) SC SCH (06:37)
[2022-12-21] MEDS: CALCIUM ACETATE 667 MG CAP PO SCH ×3 (08:00→17:22)
[2022-12-21] MEDS: CARVEDILOL 3.125 MG TAB GT SCH ×2 (09:59→21:46)
[2022-12-21] MEDS: PANTOPRAZOLE 40 MG/10 ML VIAL INJ IV SCH ×2 (10:09→21:45)
[2022-12-21] MEDS: CEFEPIME 1 GM in SODIUM CHL 0.9% 50 ML IV SCH (10:09)
[2022-12-21] MEDS: AMIODARONE HCL 200 MG TAB PO SCH ×2 (10:10→21:46)
[2022-12-21] MEDS: CHOLECALCIFEROL (VITD3) 1,000UNIT=25mCg TAB PO SCH (10:10)
[2022-12-21] MEDS ORDERED: SODIUM CHL 0.9% 1000 ML BAG XX ONE (10:15)
[2022-12-21] MEDS ORDERED: ALBUMIN 25% 100 ML IV ONE ×2 (13:15)
[2022-12-21] MEDS: METOCLOPRAMIDE HCL 5MG/ml INJ 2ml VIAL IV SCH ×2 (16:46→21:46)
[2022-12-21] MEDS: PROPOFOL 100 ML IV SCH ×2 (20:12→22:15)
[2022-12-21] MEDS ORDERED: EPOETIN ALFA-EPBX 10,000 UNIT/1ML VIAL SC ONE (21:00)
[2022-12-22] VITALS (98 sets, daily range): BP systolic 80–168; BP diastolic 35–80
[2022-12-22] MEDS: ACCU-CHEK COMFORT CURVE STRIP VI SCH ×4 (00:25→18:15)
[2022-12-22] MEDS: DOXYCYCLINE HYC IV SCH (01:50)
[2022-12-22] MEDS: SODIUM CHL 0.9% IV SCH (01:50)
[2022-12-22] MEDS: IPRATROPIUM BROM 0.5 MG/2.5ML INH SOL NEB SCH ×6 (03:01→22:19)
[2022-12-22] MEDS: ALBUTEROL SULF 2.5 MG/0.5ML(0.5%) NEB SOLN NEB SCH ×6 (03:01→22:19)
[2022-12-22 04:23] LABS: Basophils # (auto) 0 10 ^3/uL (0-0.2); Basophils % (auto) 0.2 % (0.0-2.0); Eosinophils # (auto) 0 10 ^3/uL (0-0.8); Eosinophils % (auto) 0.2 % (0.0-7.0); Hemoglobin 7.1 g/dL (13.5-17.5); Lymphocytes # (auto) 0.3 10 ^3/uL (0.4-5.4); Monocytes # (auto) 0.7 10 ^3/uL (0-1.3); White Blood Cell 7.9 10^3/uL (4.4-10.8)
[2022-12-22 04:24] LABS: Hematocrit 21.9 % (41.0-53.0); Lymphocytes % (auto) 3.4 % (10.0-50.0); Mean Corpuscular Hemoglobin 27.6 pg (28.0-32.0); Mean Corpuscular Hgb Conc. 32.4 g/dL (32.0-36.0); Mean Corpuscular Volume 85.3 fL (80.0-100.0); Monocytes % (auto) 8.3 % (0.0-12.0); Neutrophils % (auto) 87.9 % (37.0-80.0); Nucleated Red Blood Cells % 0.5 %; Red Blood Cells 2.56 10^6/uL (4.5-5.90); Red Cell Distribution Width 18.8 % (11.8-14.3)
[2022-12-22 04:33] LABS: Calcium 8.6 mg/dL (8.5-10.1); Potassium 4.5 mmol/L (3.5-5.1)
[2022-12-22 04:36] LABS: BUN/Creatinine Ratio 17.5
[2022-12-22] MEDS: LACTULOSE 20Gm/30ML SOLN PO SCH ×3 (06:00→18:00)
[2022-12-22] MEDS: METOCLOPRAMIDE HCL 5MG/ml INJ 2ml VIAL IV SCH ×3 (06:00→22:21)
[2022-12-22] MEDS: InsuLIN REG 1unit/0.01ml Soln (100units/ml) SC SCH ×4 (06:30→18:00)
[2022-12-22] MEDS: INSULIN LANTUS (GLARGINE) 1 /0.01ml (100units/ml) SC SCH (06:51)
[2022-12-22] MEDS: fentaNYL Drip 2500mCg/250mlNS 250 ML IV SCH (07:20)
[2022-12-22] MEDS: CALCIUM ACETATE 667 MG CAP PO SCH ×3 (08:00→18:00)
[2022-12-22] MEDS: NOREPINEPHRINE 8 MG/250ML KIT 250 ML IV SCH (08:58)
[2022-12-22] MEDS: CARVEDILOL 3.125 MG TAB GT SCH ×2 (10:00→22:00)
[2022-12-22] MEDS: AMIODARONE HCL 200 MG TAB PO SCH ×2 (10:17→22:22)
[2022-12-22] MEDS: PANTOPRAZOLE 40 MG/10 ML VIAL INJ IV SCH ×2 (10:17→22:21)
[2022-12-22] MEDS: CEFEPIME 1 GM in SODIUM CHL 0.9% 50 ML IV SCH (10:17)
[2022-12-22] MEDS: CHOLECALCIFEROL (VITD3) 1,000UNIT=25mCg TAB PO SCH (10:17)
[2022-12-23] VITALS (109 sets, daily range): BP systolic 13–226; BP diastolic 30–92
[2022-12-23] MEDS: ALBUTEROL SULF 2.5 MG/0.5ML(0.5%) NEB SOLN NEB SCH ×6 (02:39→22:53)
[2022-12-23] MEDS: IPRATROPIUM BROM 0.5 MG/2.5ML INH SOL NEB SCH ×6 (02:39→22:53)
[2022-12-23 05:13] LABS: Basophils # (auto) 0 10 ^3/uL (0-0.2); Basophils % (auto) 0.2 % (0.0-2.0); Eosinophils # (auto) 0.1 10 ^3/uL (0-0.8); Lymphocytes # (auto) 0.2 10 ^3/uL (0.4-5.4); Monocytes # (auto) 0.5 10 ^3/uL (0-1.3); Nucleated Red Blood Cells % 0.4 %; Red Cell Distribution Width 18.4 % (11.8-14.3)
[2022-12-23 05:15] LABS: Hemoglobin 7.6 g/dL (13.5-17.5); Mean Corpuscular Hemoglobin 28.1 pg (28.0-32.0); Mean Corpuscular Volume 85.1 fL (80.0-100.0); Monocytes % (auto) 6.6 % (0.0-12.0); Neutrophils # (auto) 6.8 10 ^3/uL (1.6-8.6); Neutrophils % (auto) 89.2 % (37.0-80.0); White Blood Cell 7.6 10^3/uL (4.4-10.8)
[2022-12-23 05:19] LABS: BUN/Creatinine Ratio 17.4; Calcium 8.5 mg/dL (8.5-10.1)
[2022-12-23] MEDS: InsuLIN REG 1unit/0.01ml Soln (100units/ml) SC SCH ×4 (06:00→17:57)
[2022-12-23] MEDS: ACCU-CHEK COMFORT CURVE STRIP VI SCH ×4 (06:21→17:56)
[2022-12-23] MEDS: LACTULOSE 20Gm/30ML SOLN PO SCH ×4 (06:21→18:36)
[2022-12-23] MEDS: METOCLOPRAMIDE HCL 5MG/ml INJ 2ml VIAL IV SCH ×3 (06:21→22:00)
[2022-12-23] MEDS ORDERED: SODIUM CHL 0.9% 1000 ML BAG XX ONE (07:00)
[2022-12-23] MEDS: INSULIN LANTUS (GLARGINE) 1 /0.01ml (100units/ml) SC SCH (07:00)
[2022-12-23] MEDS: fentaNYL Drip 2500mCg/250mlNS 250 ML IV SCH (07:52)
[2022-12-23] MEDS: CALCIUM ACETATE 667 MG CAP PO SCH ×3 (08:00→18:00)
[2022-12-23] MEDS ORDERED: ALBUMIN 25% 100 ML IV PRN (09:00)
[2022-12-23] MEDS ORDERED: ALBUMIN 25% 100 ML IV ONE (09:00)
[2022-12-23] MEDS: CARVEDILOL 3.125 MG TAB GT SCH ×2 (10:00→22:00)
[2022-12-23] MEDS: CHOLECALCIFEROL (VITD3) 1,000UNIT=25mCg TAB PO SCH (12:40)
[2022-12-23] MEDS: PANTOPRAZOLE 40 MG/10 ML VIAL INJ IV SCH ×2 (12:40→22:00)
[2022-12-23] MEDS: AMIODARONE HCL 200 MG TAB PO SCH ×2 (12:41→22:00)
[2022-12-23] MEDS: PROPOFOL 100 ML IV SCH (20:15)
[2022-12-23] MEDS: hydrALAZINE HCL 20 MG/ML VL IV PRN (20:39)
[2022-12-23] MEDS ORDERED: EPOETIN ALFA-EPBX 10,000 UNIT/1ML VIAL SC ONE (21:00)
[2022-12-23] MEDS: NOREPINEPHRINE 8 MG/250ML KIT 250 ML IV SCH (21:45)
[2022-12-24] VITALS (107 sets, daily range): BP systolic 77–178; BP diastolic 34–78
[2022-12-24] MEDS: LACTULOSE 20Gm/30ML SOLN PO SCH ×3 (00:06→11:53)
[2022-12-24] MEDS: InsuLIN REG 1unit/0.01ml Soln (100units/ml) SC SCH ×4 (00:07→17:51)
[2022-12-24] MEDS: ACCU-CHEK COMFORT CURVE STRIP VI SCH ×4 (00:07→17:51)
[2022-12-24] MEDS: IPRATROPIUM BROM 0.5 MG/2.5ML INH SOL NEB SCH ×6 (02:53→22:10)
[2022-12-24] MEDS: ALBUTEROL SULF 2.5 MG/0.5ML(0.5%) NEB SOLN NEB SCH ×6 (02:53→22:10)
[2022-12-24 03:59] LABS: Basophils # (auto) 0 10 ^3/uL (0-0.2); Basophils % (auto) 0.4 % (0.0-2.0); Eosinophils # (auto) 0.1 10 ^3/uL (0-0.8); Hemoglobin 7.7 g/dL (13.5-17.5); Lymphocytes # (auto) 0.3 10 ^3/uL (0.4-5.4); Neutrophils # (auto) 8.7 10 ^3/uL (1.6-8.6); White Blood Cell 10.1 10^3/uL (4.4-10.8)
[2022-12-24 04:02] LABS: Eosinophils % (auto) 0.6 % (0.0-7.0); Hematocrit 23.2 % (41.0-53.0); Lymphocytes % (auto) 2.9 % (10.0-50.0); Mean Corpuscular Hgb Conc. 33.1 g/dL (32.0-36.0); Mean Corpuscular Volume 84.6 fL (80.0-100.0); Monocytes % (auto) 10.3 % (0.0-12.0); Neutrophils % (auto) 85.8 % (37.0-80.0); Nucleated Red Blood Cells % 0.3 %; Red Blood Cells 2.75 10^6/uL (4.5-5.90); Red Cell Distribution Width 18.3 % (11.8-14.3)
[2022-12-24 04:05] LABS: Calcium 8.4 mg/dL (8.5-10.1); Potassium 4.3 mmol/L (3.5-5.1)
[2022-12-24 04:13] LABS: BUN/Creatinine Ratio 15.6
[2022-12-24] MEDS: PROPOFOL 100 ML IV SCH ×3 (05:06→20:42)
[2022-12-24] MEDS: METOCLOPRAMIDE HCL 5MG/ml INJ 2ml VIAL IV SCH ×2 (05:37→13:47)
[2022-12-24] MEDS: INSULIN LANTUS (GLARGINE) 1 /0.01ml (100units/ml) SC SCH (07:00)
[2022-12-24] MEDS: CALCIUM ACETATE 667 MG CAP PO SCH ×3 (08:00→17:51)
[2022-12-24] MEDS ORDERED: SODIUM CHL 0.9% 1000 ML BAG XX ONE (08:15)
[2022-12-24] MEDS: ALBUMIN 25% 100 ML IV SCH ×2 (09:00→10:02)
[2022-12-24] MEDS: NOREPINEPHRINE 8 MG/250ML KIT 250 ML IV SCH (09:15)
[2022-12-24] MEDS: CARVEDILOL 3.125 MG TAB GT SCH ×2 (10:00→22:00)
[2022-12-24] MEDS: AMIODARONE HCL 200 MG TAB PO SCH ×2 (10:22→22:18)
[2022-12-24] MEDS: PANTOPRAZOLE 40 MG/10 ML VIAL INJ IV SCH ×2 (10:22→22:18)
[2022-12-24] MEDS: CHOLECALCIFEROL (VITD3) 1,000UNIT=25mCg TAB PO SCH (10:23)
[2022-12-24] MEDS: fentaNYL Drip 2500mCg/250mlNS 250 ML IV SCH (12:49)
[2022-12-24] MEDS: NOREPINEPHRINE BITARTRATE 16 MG in SODIUM CHL 0.9% 234 ML IV SCH (13:47)
[2022-12-24] MEDS ORDERED: EPOETIN ALFA-EPBX 10,000 UNIT/1ML VIAL SC ONE (21:00)
[2022-12-25] VITALS (105 sets, daily range): BP systolic 65–196; BP diastolic 24–80
[2022-12-25] MEDS: ACCU-CHEK COMFORT CURVE STRIP VI SCH ×4 (00:15→17:43)
[2022-12-25] MEDS: fentaNYL Drip 2500mCg/250mlNS 250 ML IV SCH ×2 (01:11→12:22)
[2022-12-25] MEDS: PROPOFOL 100 ML IV SCH ×5 (01:12→17:54)
[2022-12-25] MEDS: NOREPINEPHRINE BITARTRATE 16 MG in SODIUM CHL 0.9% 234 ML IV SCH ×2 (01:50→14:59)
[2022-12-25] MEDS: IPRATROPIUM BROM 0.5 MG/2.5ML INH SOL NEB SCH ×6 (02:01→22:14)
[2022-12-25] MEDS: ALBUTEROL SULF 2.5 MG/0.5ML(0.5%) NEB SOLN NEB SCH ×6 (02:02→22:14)
[2022-12-25 04:09] LABS: Hemoglobin 7.1 g/dL (13.5-17.5); Lymphocytes # (auto) 0.3 10 ^3/uL (0.4-5.4); Lymphocytes % (auto) 4.3 % (10.0-50.0); Monocytes # (auto) 0.8 10 ^3/uL (0-1.3); White Blood Cell 6.8 10^3/uL (4.4-10.8)
[2022-12-25 04:13] LABS: Basophils # (auto) 0.1 10 ^3/uL (0-0.2); Basophils % (auto) 0.9 % (0.0-2.0); Eosinophils # (auto) 0.2 10 ^3/uL (0-0.8); Eosinophils % (auto) 2.3 % (0.0-7.0); Hematocrit 21.9 % (41.0-53.0); Mean Corpuscular Hgb Conc. 32.4 g/dL (32.0-36.0); Mean Corpuscular Volume 86.5 fL (80.0-100.0); Monocytes % (auto) 11.6 % (0.0-12.0); Neutrophils # (auto) 5.5 10 ^3/uL (1.6-8.6); Neutrophils % (auto) 80.9 % (37.0-80.0); Nucleated Red Blood Cells % 0.6 %; Red Blood Cells 2.53 10^6/uL (4.5-5.90); Red Cell Distribution Width 18.9 % (11.8-14.3)
[2022-12-25 04:31] LABS: Albumin 3.1 g/dL (3.4-5.0); Calcium 8.3 mg/dL (8.5-10.1); Potassium 4.1 mmol/L (3.5-5.1)
[2022-12-25 04:35] LABS: BUN/Creatinine Ratio 13.9; Bilirubin, Total 1.5 mg/dL (0.2-1.0); Total Protein 5.4 g/dL (6.4-8.2)
[2022-12-25] MEDS: INSULIN LANTUS (GLARGINE) 1 /0.01ml (100units/ml) SC SCH (07:00)
[2022-12-25] MEDS: CALCIUM ACETATE 667 MG CAP PO SCH ×3 (08:00→17:44)
[2022-12-25] MEDS: CARVEDILOL 3.125 MG TAB GT SCH ×2 (10:00→22:00)
[2022-12-25] MEDS: LACTULOSE 20Gm/30ML SOLN PO SCH (10:00)
[2022-12-25] MEDS: InsuLIN REG 1unit/0.01ml Soln (100units/ml) SC SCH ×4 (10:15→17:43)
[2022-12-25] MEDS: PANTOPRAZOLE 40 MG/10 ML VIAL INJ IV SCH ×2 (10:17→22:23)
[2022-12-25] MEDS: AMIODARONE HCL 200 MG TAB PO SCH ×2 (10:17→22:23)
[2022-12-25] MEDS: CHOLECALCIFEROL (VITD3) 1,000UNIT=25mCg TAB PO SCH (10:19)
[2022-12-25 12:17] LABS: CRP High Sensitivity 10.7 mg/dL (< 0.3); Pre Albumin 8.8 mg/dL (20.0-40.0)
[2022-12-25 12:30] LABS: Thyroid Stimulating Hormone 3.17 uIU/mL (0.358-3.74)
[2022-12-25] MEDS ORDERED: CLINIMIX PER PHARMACY 0 ML IV SCH (13:00)
[2022-12-25 15:45] LABS: Basophils # (auto) 0 10 ^3/uL (0-0.2); Hemoglobin 7.2 g/dL (13.5-17.5); Lymphocytes # (auto) 0.3 10 ^3/uL (0.4-5.4); Mean Corpuscular Hemoglobin 27.5 pg (28.0-32.0); Monocytes # (auto) 0.8 10 ^3/uL (0-1.3); Nucleated Red Blood Cells % 0.4 %; Red Blood Cells 2.62 10^6/uL (4.5-5.90)
[2022-12-25 15:47] LABS: Basophils % (auto) 0.6 % (0.0-2.0); Eosinophils # (auto) 0.1 10 ^3/uL (0-0.8); Eosinophils % (auto) 2.1 % (0.0-7.0); Hematocrit 22.6 % (41.0-53.0); Lymphocytes % (auto) 4.1 % (10.0-50.0); Mean Corpuscular Hgb Conc. 31.8 g/dL (32.0-36.0); Mean Corpuscular Volume 86.3 fL (80.0-100.0); Monocytes % (auto) 10.9 % (0.0-12.0); Neutrophils # (auto) 5.7 10 ^3/uL (1.6-8.6); Neutrophils % (auto) 82.3 % (37.0-80.0); Red Cell Distribution Width 18.8 % (11.8-14.3); White Blood Cell 6.9 10^3/uL (4.4-10.8)
[2022-12-25 16:09] LABS: Ferritin 111.2 ng/mL (10-322)
[2022-12-25 16:45] LABS: % Iron Saturation 38.1 % (20-55)
[2022-12-25 19:13] LABS: Magnesium 1.9 mg/dL (1.6-2.6); Phosphorus 8.7 mg/dL (2.5-4.90)
[2022-12-25] MEDS: AMINO ACID INFUSION IN D10W 1,000 ML IV NR (20:29)
[2022-12-25 22:42] LABS: Basophils # (auto) 0 10 ^3/uL (0-0.2); Basophils % (auto) 0.5 % (0.0-2.0); Eosinophils # (auto) 0.1 10 ^3/uL (0-0.8); Eosinophils % (auto) 1.7 % (0.0-7.0); Lymphocytes # (auto) 0.3 10 ^3/uL (0.4-5.4); Lymphocytes % (auto) 3.8 % (10.0-50.0); Monocytes # (auto) 0.7 10 ^3/uL (0-1.3)
[2022-12-25 22:44] LABS: Hematocrit 23.3 % (41.0-53.0); Hemoglobin 7.4 g/dL (13.5-17.5); Mean Corpuscular Hemoglobin 27.3 pg (28.0-32.0); Mean Corpuscular Hgb Conc. 31.7 g/dL (32.0-36.0); Mean Corpuscular Volume 86.2 fL (80.0-100.0); Monocytes % (auto) 10.2 % (0.0-12.0); Neutrophils # (auto) 5.8 10 ^3/uL (1.6-8.6); Neutrophils % (auto) 83.8 % (37.0-80.0); Nucleated Red Blood Cells % 0.5 %; Red Blood Cells 2.71 10^6/uL (4.5-5.90); White Blood Cell 6.9 10^3/uL (4.4-10.8)
[2022-12-26] VITALS (104 sets, daily range): BP systolic 89–179; BP diastolic 29–61
[2022-12-26] MEDS ORDERED: DEXTROSE (50%) 50ML SYRG IV SCH
[2022-12-26] MEDS: PROPOFOL 100 ML IV SCH ×5 (00:07→21:06)
[2022-12-26] MEDS: InsuLIN REG 1unit/0.01ml Soln (100units/ml) SC SCH ×4 (00:18→18:22)
[2022-12-26] MEDS: ACCU-CHEK COMFORT CURVE STRIP VI SCH ×4 (00:18→17:14)
[2022-12-26] MEDS: fentaNYL Drip 2500mCg/250mlNS 250 ML IV SCH ×2 (00:43→13:08)
[2022-12-26] MEDS: ALBUTEROL SULF 2.5 MG/0.5ML(0.5%) NEB SOLN NEB SCH ×6 (02:09→21:45)
[2022-12-26] MEDS: IPRATROPIUM BROM 0.5 MG/2.5ML INH SOL NEB SCH ×6 (02:09→21:45)
[2022-12-26] MEDS: NOREPINEPHRINE BITARTRATE 16 MG in SODIUM CHL 0.9% 234 ML IV SCH ×2 (02:33→19:09)
[2022-12-26 05:06] LABS: Albumin 2.7 g/dL (3.4-5.0); BUN/Creatinine Ratio 14.2; Calcium 8.2 mg/dL (8.5-10.1); Magnesium 1.9 mg/dL (1.6-2.6); Potassium 4.1 mmol/L (3.5-5.1)
[2022-12-26 05:11] LABS: Bilirubin, Total 1.6 mg/dL (0.2-1.0); Phosphorus 7.6 mg/dL (2.5-4.90)
[2022-12-26] MEDS: INSULIN LANTUS (GLARGINE) 1 /0.01ml (100units/ml) SC SCH (07:00)
[2022-12-26] MEDS ORDERED: SODIUM CHL 0.9% 1000 ML BAG XX ONE (07:00)
[2022-12-26] MEDS: CALCIUM ACETATE 667 MG CAP PO SCH ×3 (08:00→17:14)
[2022-12-26 08:46] LABS: Free T4 (Free Thyroxine) 0.93 ng/dL (0.89-1.76)
[2022-12-26] MEDS: LACTULOSE 20Gm/30ML SOLN PO SCH (09:49)
[2022-12-26] MEDS: PANTOPRAZOLE 40 MG/10 ML VIAL INJ IV SCH ×2 (09:49→21:55)
[2022-12-26] MEDS: CHOLECALCIFEROL (VITD3) 1,000UNIT=25mCg TAB PO SCH (09:49)
[2022-12-26] MEDS: CARVEDILOL 3.125 MG TAB GT SCH ×2 (09:50→22:00)
[2022-12-26] MEDS: AMIODARONE HCL 200 MG TAB PO SCH ×2 (10:00→21:56)
[2022-12-26 11:17] LABS: Basophils # (auto) 0 10 ^3/uL (0-0.2); Basophils % (auto) 0.3 % (0.0-2.0); Eosinophils # (auto) 0.1 10 ^3/uL (0-0.8); Hematocrit 23.1 % (41.0-53.0); Lymphocytes # (auto) 0.3 10 ^3/uL (0.4-5.4); Neutrophils # (auto) 6.8 10 ^3/uL (1.6-8.6); Red Blood Cells 2.69 10^6/uL (4.5-5.90); Red Cell Distribution Width 19.2 % (11.8-14.3)
[2022-12-26 11:20] LABS: Eosinophils % (auto) 1.4 % (0.0-7.0); Hemoglobin 7.3 g/dL (13.5-17.5); Lymphocytes % (auto) 3.3 % (10.0-50.0); Mean Corpuscular Hemoglobin 27.3 pg (28.0-32.0); Mean Corpuscular Hgb Conc. 31.8 g/dL (32.0-36.0); Monocytes # (auto) 0.8 10 ^3/uL (0-1.3); Monocytes % (auto) 10.1 % (0.0-12.0); Neutrophils % (auto) 84.9 % (37.0-80.0); Nucleated Red Blood Cells % 0.3 %
[2022-12-26] MEDS ORDERED: ALBUMIN 25% 100 ML IV ONE ×2 (14:00→14:20)
[2022-12-26] MEDS ORDERED: CATHFLO ACTIVASE (ALTEPLASE) 2 MG VIAL IV ONE (14:45)
[2022-12-26] MEDS: AMINO ACID INFUSION IN D10W 1,000 ML IV NR ×2 (16:00→20:22)
[2022-12-26] MEDS: VASOPRESSIN 20 UNITS in SODIUM CHL 0.9% 99 ML IV SCH (16:15)
[2022-12-26] MEDS ORDERED: EPOETIN ALFA-EPBX 10,000 UNIT/1ML VIAL SC ONE (21:00)
[2022-12-26 22:17] LABS: Hemoglobin 7.5 g/dL (13.5-17.5); Mean Corpuscular Hgb Conc. 31.8 g/dL (32.0-36.0)
[2022-12-26 22:18] LABS: Hematocrit 23.7 % (41.0-53.0); Mean Corpuscular Hemoglobin 27.4 pg (28.0-32.0); Mean Corpuscular Volume 86.3 fL (80.0-100.0); Red Blood Cells 2.74 10^6/uL (4.5-5.90); Red Cell Distribution Width 19.4 % (11.8-14.3); White Blood Cell 8.2 10^3/uL (4.4-10.8)
[2022-12-26 22:35] LABS: Basophils % (manual) 0 (0.0-2.0); Blast Cells 0; Eosinophils % (manual) 0 (0-7); Metamyelocytes % 0; Myelocytes % 0; Promyelocytes % 0; Reactive Lymphocytes 0
[2022-12-26 22:41] LABS: Band Neutrophils % (manual) 3; Lymphocytes % (manual) 5 (10.0-50.0); Monocytes % (manual) 3 (0-12)
[2022-12-27] VITALS (104 sets, daily range): BP systolic 64–168; BP diastolic 30–87
[2022-12-27] MEDS: ACCU-CHEK COMFORT CURVE STRIP VI SCH ×4 (00:04→17:41)
[2022-12-27] MEDS: InsuLIN REG 1unit/0.01ml Soln (100units/ml) SC SCH ×4 (00:05→17:42)
[2022-12-27] MEDS: fentaNYL Drip 2500mCg/250mlNS 250 ML IV SCH ×2 (00:51→13:05)
[2022-12-27] MEDS: IPRATROPIUM BROM 0.5 MG/2.5ML INH SOL NEB SCH ×6 (02:15→22:19)
[2022-12-27] MEDS: ALBUTEROL SULF 2.5 MG/0.5ML(0.5%) NEB SOLN NEB SCH ×6 (02:15→22:19)
[2022-12-27] MEDS: VASOPRESSIN 20 UNITS in SODIUM CHL 0.9% 99 ML IV SCH ×3 (03:22→16:54)
[2022-12-27] MEDS: PROPOFOL 100 ML IV SCH ×3 (04:04→22:00)
[2022-12-27 04:14] LABS: Hematocrit 22.7 % (41.0-53.0); Hemoglobin 7.4 g/dL (13.5-17.5)
[2022-12-27 04:15] LABS: Mean Corpuscular Hemoglobin 27.6 pg (28.0-32.0); Mean Corpuscular Hgb Conc. 32.5 g/dL (32.0-36.0); Mean Corpuscular Volume 84.9 fL (80.0-100.0); Red Blood Cells 2.67 10^6/uL (4.5-5.90); Red Cell Distribution Width 19.1 % (11.8-14.3)
[2022-12-27 04:29] LABS: Albumin 2.5 g/dL (3.4-5.0); Magnesium 1.7 mg/dL (1.6-2.6); Potassium 4.1 mmol/L (3.5-5.1)
[2022-12-27 04:31] LABS: Basophils % (manual) 0 (0.0-2.0); Blast Cells 0; Eosinophils % (manual) 0 (0-7); Metamyelocytes % 0; Myelocytes % 0; Promyelocytes % 0; Reactive Lymphocytes 0
[2022-12-27 04:32] LABS: BUN/Creatinine Ratio 14.3 (10.0-20.0); Phosphorus 7.2 mg/dL (2.5-4.90)
[2022-12-27] MEDS: NOREPINEPHRINE BITARTRATE 16 MG in SODIUM CHL 0.9% 234 ML IV SCH ×3 (04:59→20:22)
[2022-12-27 05:00] LABS: Band Neutrophils % (manual) 11; Lymphocytes % (manual) 6 (10.0-50.0); Monocytes % (manual) 6 (0-12)
[2022-12-27] MEDS: INSULIN LANTUS (GLARGINE) 1 /0.01ml (100units/ml) SC SCH (05:56)
[2022-12-27 07:06] LABS: Immunoglobulin G, Serum 530 mg/dL (603-1613)
[2022-12-27] MEDS: CALCIUM ACETATE 667 MG CAP PO SCH ×3 (08:00→15:10)
[2022-12-27] MEDS ORDERED: LIDOCAINE 2%HCL (LOCAL ANESTH.) INJ 20ML MDV ONE (09:36)
[2022-12-27] MEDS ORDERED: HEPARIN SODIUM (PORCINE) 5000 UNITS/ML 1ML VIAL ONE (09:55)
[2022-12-27] MEDS: CARVEDILOL 3.125 MG TAB GT SCH ×2 (10:00→22:00)
[2022-12-27] MEDS ORDERED: ceFAZolin 1GM/50ML 50 ML IV ONE (10:19)
[2022-12-27] MEDS: AMIODARONE HCL 200 MG TAB PO SCH ×2 (11:10→22:12)
[2022-12-27] MEDS: LACTULOSE 20Gm/30ML SOLN PO SCH (11:10)
[2022-12-27] MEDS: PANTOPRAZOLE 40 MG/10 ML VIAL INJ IV SCH ×2 (11:10→22:12)
[2022-12-27] MEDS: CHOLECALCIFEROL (VITD3) 1,000UNIT=25mCg TAB PO SCH (11:11)
[2022-12-27 11:51] LABS: Hematocrit 21.8 % (41.0-53.0); Hemoglobin 7.1 g/dL (13.5-17.5); Mean Corpuscular Hemoglobin 27.5 pg (28.0-32.0); Red Blood Cells 2.57 10^6/uL (4.5-5.90)
[2022-12-27 11:52] LABS: Mean Corpuscular Hgb Conc. 32.5 g/dL (32.0-36.0); Mean Corpuscular Volume 84.7 fL (80.0-100.0); Red Cell Distribution Width 19.1 % (11.8-14.3)
[2022-12-27 12:37] LABS: Basophils % (manual) 0 (0.0-2.0); Blast Cells 0; Eosinophils % (manual) 0 (0-7); Metamyelocytes % 0; Myelocytes % 0; Promyelocytes % 0; Reactive Lymphocytes 0
[2022-12-27 12:39] LABS: Band Neutrophils % (manual) 15; Lymphocytes % (manual) 1 (10.0-50.0); Monocytes % (manual) 7 (0-12)
[2022-12-27] MEDS: AMINO ACID INFUSION IN D10W 1,000 ML IV NR (16:25)
[2022-12-27] MEDS ORDERED: ALBUMIN 25% 100 ML IV ONE ×3 (17:00→18:15)
[2022-12-27] MEDS ORDERED: AMINO ACID INFUSION IN D10W 1,000 ML IV NR (20:00)
[2022-12-27] MEDS ORDERED: EPOETIN ALFA-EPBX 10,000 UNIT/1ML VIAL SC ONE (21:00)
[2022-12-27] MEDS: NYSTATIN TOPICAL POWDER 15GM TOP SCH (22:00)
[2022-12-28] VITALS (107 sets, daily range): BP systolic 59–192; BP diastolic 23–90
[2022-12-28] MEDS: InsuLIN REG 1unit/0.01ml Soln (100units/ml) SC SCH ×4 (00:28→18:16)
[2022-12-28] MEDS: ACCU-CHEK COMFORT CURVE STRIP VI SCH ×4 (00:28→18:14)
[2022-12-28] MEDS: ALBUTEROL SULF 2.5 MG/0.5ML(0.5%) NEB SOLN NEB SCH ×6 (02:15→22:58)
[2022-12-28] MEDS: IPRATROPIUM BROM 0.5 MG/2.5ML INH SOL NEB SCH ×6 (02:15→22:58)
[2022-12-28 04:20] LABS: Basophils # (auto) 0 10 ^3/uL (0-0.2); Basophils % (auto) 0.5 % (0.0-2.0); Eosinophils # (auto) 0 10 ^3/uL (0-0.8); Lymphocytes # (auto) 0.2 10 ^3/uL (0.4-5.4); Monocytes # (auto) 0.4 10 ^3/uL (0-1.3); Neutrophils # (auto) 3.1 10 ^3/uL (1.6-8.6); White Blood Cell 3.7 10^3/uL (4.4-10.8)
[2022-12-28 04:22] LABS: Eosinophils % (auto) 0.2 % (0.0-7.0); Hematocrit 19.6 % (41.0-53.0); Lymphocytes % (auto) 5.2 % (10.0-50.0); Mean Corpuscular Hemoglobin 27.6 pg (28.0-32.0); Mean Corpuscular Hgb Conc. 32.8 g/dL (32.0-36.0); Monocytes % (auto) 10.8 % (0.0-12.0); Neutrophils % (auto) 83.3 % (37.0-80.0); Red Blood Cells 2.34 10^6/uL (4.5-5.90); Red Cell Distribution Width 18.7 % (11.8-14.3)
[2022-12-28 04:38] LABS: Albumin 2.8 g/dL (3.4-5.0); Calcium 8.3 mg/dL (8.5-10.1); Magnesium 1.7 mg/dL (1.6-2.6)
[2022-12-28 04:39] LABS: Hemoglobin 6.5 g/dL (13.5-17.5)
[2022-12-28 04:44] LABS: BUN/Creatinine Ratio 12.2 (10.0-20.0); Bilirubin, Total 3.5 mg/dL (0.2-1.0); Phosphorus 4.3 mg/dL (2.5-4.90)
[2022-12-28] MEDS: PROPOFOL 100 ML IV SCH ×2 (04:53→18:30)
[2022-12-28] MEDS: fentaNYL Drip 2500mCg/250mlNS 250 ML IV SCH (04:54)
[2022-12-28] MEDS: INSULIN LANTUS (GLARGINE) 1 /0.01ml (100units/ml) SC SCH (07:00)
[2022-12-28] MEDS: NOREPINEPHRINE BITARTRATE 16 MG in SODIUM CHL 0.9% 234 ML IV SCH (07:51)
[2022-12-28] MEDS: CALCIUM ACETATE 667 MG CAP PO SCH ×3 (08:00→18:00)
[2022-12-28] MEDS ORDERED: POTASSIUM CHL 20MEQ/100ML 100 ML IV ONE (09:30)
[2022-12-28] MEDS: CARVEDILOL 3.125 MG TAB GT SCH ×2 (10:00→22:00)
[2022-12-28] MEDS: PANTOPRAZOLE 40 MG/10 ML VIAL INJ IV SCH ×2 (10:02→21:40)
[2022-12-28] MEDS: LACTULOSE 20Gm/30ML SOLN PO SCH (10:02)
[2022-12-28] MEDS: AMIODARONE HCL 200 MG TAB PO SCH ×2 (10:02→21:40)
[2022-12-28] MEDS: CHOLECALCIFEROL (VITD3) 1,000UNIT=25mCg TAB PO SCH (10:02)
[2022-12-28] MEDS: NYSTATIN TOPICAL POWDER 15GM TOP SCH ×2 (10:03→21:40)
[2022-12-28 10:40] LABS: Basophils # (auto) 0 10 ^3/uL (0-0.2); Basophils % (auto) 0.3 % (0.0-2.0); Eosinophils # (auto) 0 10 ^3/uL (0-0.8); Eosinophils % (auto) 1.2 % (0.0-7.0); Hematocrit 19.3 % (41.0-53.0); Lymphocytes # (auto) 0.3 10 ^3/uL (0.4-5.4); Lymphocytes % (auto) 7.3 % (10.0-50.0); Mean Corpuscular Hemoglobin 27.7 pg (28.0-32.0); Mean Corpuscular Hgb Conc. 33.4 g/dL (32.0-36.0); Mean Corpuscular Volume 82.7 fL (80.0-100.0); Monocytes # (auto) 0.6 10 ^3/uL (0-1.3); Monocytes % (auto) 13.7 % (0.0-12.0); Neutrophils # (auto) 3.3 10 ^3/uL (1.6-8.6); Neutrophils % (auto) 77.5 % (37.0-80.0); Nucleated Red Blood Cells % 0.9 %; Red Blood Cells 2.34 10^6/uL (4.5-5.90); Red Cell Distribution Width 18.9 % (11.8-14.3); White Blood Cell 4.3 10^3/uL (4.4-10.8)
[2022-12-28 11:05] LABS: Hemoglobin 6.5 g/dL (13.5-17.5)
[2022-12-28] MEDS: VASOPRESSIN 20 UNITS in SODIUM CHL 0.9% 99 ML IV SCH ×2 (12:45→23:50)
[2022-12-28] MEDS: AMINO ACID INFUSION IN D10W 1,000 ML IV SCH (18:29)
[2022-12-29] VITALS (99 sets, daily range): BP systolic 66–182; BP diastolic 21–70
[2022-12-29] MEDS: NOREPINEPHRINE BITARTRATE 16 MG in SODIUM CHL 0.9% 234 ML IV SCH (00:47)
[2022-12-29] MEDS: ACCU-CHEK COMFORT CURVE STRIP VI SCH ×4 (00:47→17:43)
[2022-12-29] MEDS: InsuLIN REG 1unit/0.01ml Soln (100units/ml) SC SCH ×4 (00:47→17:52)
[2022-12-29] MEDS: fentaNYL Drip 2500mCg/250mlNS 250 ML IV SCH (00:49)
[2022-12-29] MEDS: PROPOFOL 100 ML IV SCH ×5 (01:25→21:49)
[2022-12-29] MEDS: ALBUTEROL SULF 2.5 MG/0.5ML(0.5%) NEB SOLN NEB SCH ×6 (03:08→23:31)
[2022-12-29] MEDS: IPRATROPIUM BROM 0.5 MG/2.5ML INH SOL NEB SCH ×6 (03:08→23:31)
[2022-12-29 04:26] LABS: Basophils # (auto) 0 10 ^3/uL (0-0.2); Eosinophils # (auto) 0 10 ^3/uL (0-0.8); Hemoglobin 7.7 g/dL (13.5-17.5); Monocytes # (auto) 0.7 10 ^3/uL (0-1.3); Monocytes % (auto) 14.2 % (0.0-12.0); Neutrophils # (auto) 3.9 10 ^3/uL (1.6-8.6); Red Cell Distribution Width 19.8 % (11.8-14.3); White Blood Cell 4.8 10^3/uL (4.4-10.8)
[2022-12-29 04:28] LABS: Basophils % (auto) 0.4 % (0.0-2.0); Eosinophils % (auto) 0.4 % (0.0-7.0); Hematocrit 23.1 % (41.0-53.0); Lymphocytes # (auto) 0.3 10 ^3/uL (0.4-5.4); Lymphocytes % (auto) 5.2 % (10.0-50.0); Mean Corpuscular Hemoglobin 27.3 pg (28.0-32.0); Mean Corpuscular Hgb Conc. 33.3 g/dL (32.0-36.0); Mean Corpuscular Volume 81.9 fL (80.0-100.0); Neutrophils % (auto) 79.8 % (37.0-80.0); Nucleated Red Blood Cells % 0.9 %; Red Blood Cells 2.81 10^6/uL (4.5-5.90)
[2022-12-29 04:43] LABS: Albumin 2.6 g/dL (3.4-5.0); BUN/Creatinine Ratio 13.2 (10.0-20.0); Calcium 8.4 mg/dL (8.5-10.1); Magnesium 1.7 mg/dL (1.6-2.6)
[2022-12-29 04:45] LABS: Bilirubin, Total 4.5 mg/dL (0.2-1.0); Phosphorus 3.7 mg/dL (2.5-4.90)
[2022-12-29 04:51] LABS: Potassium 2.9 mmol/L (3.5-5.1)
[2022-12-29] MEDS: INSULIN LANTUS (GLARGINE) 1 /0.01ml (100units/ml) SC SCH (06:52)
[2022-12-29] MEDS: CALCIUM ACETATE 667 MG CAP PO SCH ×3 (08:00→18:00)
[2022-12-29] MEDS ORDERED: AMINO ACID INFUSION IN D10W 1,000 ML IV SCH (09:00)
[2022-12-29] MEDS ORDERED: ALBUMIN 25% 200 ML IV ONE (09:22)
[2022-12-29] MEDS ORDERED: HEPARIN 1,000 UNITS/ml 1ML VIAL IV ONE ×2 (09:30)
[2022-12-29] MEDS: VASOPRESSIN 20 UNITS in SODIUM CHL 0.9% 99 ML IV SCH ×2 (10:29→21:49)
[2022-12-29] MEDS: AMINO ACID INFUSION IN D10W 1,000 ML IV SCH ×2 (12:00→17:04)
[2022-12-29] MEDS ORDERED: MAGNESIUM SULFATE 1GM/100ML 200 ML IV ONE (12:32)
[2022-12-29] MEDS: CARVEDILOL 3.125 MG TAB GT SCH ×2 (13:00→21:47)
[2022-12-29] MEDS: NYSTATIN TOPICAL POWDER 15GM TOP SCH ×2 (13:00→21:49)
[2022-12-29] MEDS: MAGNESIUM SULFATE 1GM/100ML 100 ML IV SCH ×2 (14:28→15:30)
[2022-12-29] MEDS ORDERED: POTASSIUM CHL 20MEQ/100ML 100 ML IV ONE ×2 (16:00→19:59)
[2022-12-29] MEDS: LACTULOSE 20Gm/30ML SOLN PO SCH (17:03)
[2022-12-29] MEDS: CHOLECALCIFEROL (VITD3) 1,000UNIT=25mCg TAB PO SCH (17:03)
[2022-12-29] MEDS: PANTOPRAZOLE 40 MG/10 ML VIAL INJ IV SCH ×2 (17:03→21:46)
[2022-12-29] MEDS: AMIODARONE HCL 200 MG TAB PO SCH ×2 (17:03→21:46)
[2022-12-29] MEDS: POTASSIUM CHL 20MEQ/100ML 100 ML IV SCH ×2 (17:04→20:03)
[2022-12-29] MEDS ORDERED: EPOETIN ALFA-EPBX 4,000 UNIT/ML VIAL SC ONE (21:00)
[2022-12-29] MEDS ORDERED: NOREPINEPHRINE 8 MG/250ML KIT 250 ML IV ONE (22:40)
[2022-12-29] MEDS ORDERED: NOREPINEPHRINE BITARTRATE 2 ML IV ONE (22:40)
[2022-12-30] VITALS (106 sets, daily range): BP systolic 71–162; BP diastolic 44–87
[2022-12-30] MEDS: fentaNYL Drip 2500mCg/250mlNS 250 ML IV SCH ×2 (00:33→12:18)
[2022-12-30] MEDS: ACCU-CHEK COMFORT CURVE STRIP VI SCH ×4 (00:34→17:58)
[2022-12-30] MEDS: NOREPINEPHRINE BITARTRATE 16 MG in SODIUM CHL 0.9% 234 ML IV SCH ×2 (00:37→12:16)
[2022-12-30] MEDS: PROPOFOL 100 ML IV SCH ×3 (01:50→16:58)
[2022-12-30] MEDS: ALBUTEROL SULF 2.5 MG/0.5ML(0.5%) NEB SOLN NEB SCH ×6 (03:06→22:11)
[2022-12-30] MEDS: IPRATROPIUM BROM 0.5 MG/2.5ML INH SOL NEB SCH ×6 (03:06→22:11)
[2022-12-30 04:31] LABS: Basophils # (auto) 0 10 ^3/uL (0-0.2); Eosinophils # (auto) 0 10 ^3/uL (0-0.8); Hemoglobin 7.6 g/dL (13.5-17.5); Neutrophils # (auto) 3.1 10 ^3/uL (1.6-8.6)
[2022-12-30 04:34] LABS: Basophils % (auto) 0.4 % (0.0-2.0); Eosinophils % (auto) 0.8 % (0.0-7.0); Hematocrit 23.1 % (41.0-53.0); Lymphocytes # (auto) 0.3 10 ^3/uL (0.4-5.4); Lymphocytes % (auto) 6.9 % (10.0-50.0); Mean Corpuscular Hemoglobin 27.2 pg (28.0-32.0); Mean Corpuscular Hgb Conc. 32.9 g/dL (32.0-36.0); Mean Corpuscular Volume 82.6 fL (80.0-100.0); Monocytes # (auto) 0.6 10 ^3/uL (0-1.3); Monocytes % (auto) 14.2 % (0.0-12.0); Neutrophils % (auto) 77.7 % (37.0-80.0); Nucleated Red Blood Cells % 1.5 %; Red Blood Cells 2.79 10^6/uL (4.5-5.90)
[2022-12-30 04:46] LABS: Albumin 2.8 g/dL (3.4-5.0); BUN/Creatinine Ratio 12.3 (10.0-20.0); Calcium 8.9 mg/dL (8.5-10.1); Magnesium 2.2 mg/dL (1.6-2.6); Potassium 3.3 mmol/L (3.5-5.1)
[2022-12-30 04:49] LABS: Bilirubin, Total 5.5 mg/dL (0.2-1.0); Phosphorus 2.2 mg/dL (2.5-4.90); Total Protein 5.3 g/dL (6.4-8.2)
[2022-12-30 05:11] LABS: Red Cell Distribution Width 20.1 % (11.8-14.3)
[2022-12-30] MEDS: INSULIN LANTUS (GLARGINE) 1 /0.01ml (100units/ml) SC SCH (06:01)
[2022-12-30] MEDS: InsuLIN REG 1unit/0.01ml Soln (100units/ml) SC SCH ×4 (06:02→17:57)
[2022-12-30] MEDS: CALCIUM ACETATE 667 MG CAP PO SCH ×3 (08:00→17:58)
[2022-12-30] MEDS: VASOPRESSIN 20 UNITS in SODIUM CHL 0.9% 99 ML IV SCH ×2 (08:58→20:18)
[2022-12-30] MEDS: LACTULOSE 20Gm/30ML SOLN PO SCH (09:55)
[2022-12-30] MEDS: AMIODARONE HCL 200 MG TAB PO SCH ×2 (09:55→22:13)
[2022-12-30] MEDS: CARVEDILOL 3.125 MG TAB GT SCH ×3 (09:56→22:12)
[2022-12-30] MEDS: CHOLECALCIFEROL (VITD3) 1,000UNIT=25mCg TAB PO SCH (09:57)
[2022-12-30] MEDS: NYSTATIN TOPICAL POWDER 15GM TOP SCH ×2 (10:01→22:13)
[2022-12-30] MEDS ORDERED: POTASSIUM PHOSP 22MEQ(15MMOLE) in NS 100 ML IV ONE (10:30)
[2022-12-30] MEDS: AMINO ACID INFUSION IN D10W 1,000 ML IV SCH (13:06)
[2022-12-30] MEDS: methylPREDNISolone SOD SUCC 40 MG/ML VL IV SCH (23:45)
[2022-12-31] VITALS (107 sets, daily range): BP systolic 65–135; BP diastolic 34–76
[2022-12-31] MEDS: ACCU-CHEK COMFORT CURVE STRIP VI SCH ×4 (00:08→17:50)
[2022-12-31] MEDS: InsuLIN REG 1unit/0.01ml Soln (100units/ml) SC SCH ×4 (00:09→17:51)
[2022-12-31] MEDS: IPRATROPIUM BROM 0.5 MG/2.5ML INH SOL NEB SCH ×6 (02:12→22:03)
[2022-12-31] MEDS: ALBUTEROL SULF 2.5 MG/0.5ML(0.5%) NEB SOLN NEB SCH ×6 (02:12→22:03)
[2022-12-31 04:41] LABS: Albumin 2.4 g/dL (3.4-5.0); Calcium 8.9 mg/dL (8.5-10.1); Potassium 3.5 mmol/L (3.5-5.1)
[2022-12-31 04:44] LABS: BUN/Creatinine Ratio 13.8 (10.0-20.0)
[2022-12-31 04:47] LABS: Bilirubin, Total 4.9 mg/dL (0.2-1.0); Phosphorus 3.1 mg/dL (2.5-4.90); Total Protein 5.1 g/dL (6.4-8.2)
[2022-12-31 05:38] LABS: Eosinophils # (auto) 0 10 ^3/uL (0-0.8); Mean Corpuscular Volume 83.5 fL (80.0-100.0); White Blood Cell 5.5 10^3/uL (4.4-10.8)
[2022-12-31 05:40] LABS: Basophils # (auto) 0 10 ^3/uL (0-0.2); Basophils % (auto) 0.7 % (0.0-2.0); Eosinophils % (auto) 0.4 % (0.0-7.0); Hematocrit 23.7 % (41.0-53.0); Hemoglobin 7.7 g/dL (13.5-17.5); Lymphocytes # (auto) 0.3 10 ^3/uL (0.4-5.4); Lymphocytes % (auto) 4.9 % (10.0-50.0); Mean Corpuscular Hemoglobin 27.2 pg (28.0-32.0); Mean Corpuscular Hgb Conc. 32.6 g/dL (32.0-36.0); Monocytes # (auto) 0.6 10 ^3/uL (0-1.3); Monocytes % (auto) 10.7 % (0.0-12.0); Neutrophils # (auto) 4.6 10 ^3/uL (1.6-8.6); Neutrophils % (auto) 83.3 % (37.0-80.0); Nucleated Red Blood Cells % 1.4 %; Red Blood Cells 2.83 10^6/uL (4.5-5.90)
[2022-12-31 05:41] LABS: Red Cell Distribution Width 20.1 % (11.8-14.3)
[2022-12-31] MEDS: AMINO ACID INFUSION IN D10W 1,000 ML IV SCH (06:31)
[2022-12-31] MEDS: VASOPRESSIN 20 UNITS in SODIUM CHL 0.9% 99 ML IV SCH (07:25)
[2022-12-31] MEDS: CALCIUM ACETATE 667 MG CAP PO SCH ×3 (08:00→17:45)
[2022-12-31] MEDS: CARVEDILOL 3.125 MG TAB GT SCH ×2 (09:38→22:00)
[2022-12-31] MEDS: AMIODARONE HCL 200 MG TAB PO SCH ×2 (09:53→22:00)
[2022-12-31] MEDS: methylPREDNISolone SOD SUCC 40 MG/ML VL IV SCH (09:53)
[2022-12-31] MEDS: LACTULOSE 20Gm/30ML SOLN PO SCH (09:53)
[2022-12-31] MEDS: NYSTATIN TOPICAL POWDER 15GM TOP SCH ×2 (09:54→22:20)
[2022-12-31] MEDS: CHOLECALCIFEROL (VITD3) 1,000UNIT=25mCg TAB PO SCH (09:54)
[2022-12-31] MEDS: NOREPINEPHRINE BITARTRATE 16 MG in SODIUM CHL 0.9% 234 ML IV SCH (09:55)
[2022-12-31] MEDS: fentaNYL Drip 2500mCg/250mlNS 250 ML IV SCH (15:03)
[2022-12-31] MEDS: PROPOFOL 100 ML IV SCH (18:55)
[2023-01-01] VITALS (98 sets, daily range): BP systolic 66–196; BP diastolic 43–109
[2023-01-01] MEDS: ACCU-CHEK COMFORT CURVE STRIP VI SCH ×4 (00:51→18:06)
[2023-01-01] MEDS: InsuLIN REG 1unit/0.01ml Soln (100units/ml) SC SCH ×4 (00:56→18:19)
[2023-01-01] MEDS: AMINO ACID INFUSION IN D10W 1,000 ML IV NR ×2 (02:00→22:00)
[2023-01-01] MEDS: ALBUTEROL SULF 2.5 MG/0.5ML(0.5%) NEB SOLN NEB SCH ×6 (02:14→22:24)
[2023-01-01] MEDS: IPRATROPIUM BROM 0.5 MG/2.5ML INH SOL NEB SCH ×6 (02:14→22:24)
[2023-01-01 04:34] LABS: Albumin 2.2 g/dL (3.4-5.0); Calcium 8.8 mg/dL (8.5-10.1); Potassium 3.4 mmol/L (3.5-5.1)
[2023-01-01 04:39] LABS: BUN/Creatinine Ratio 15.6 (10.0-20.0); Bilirubin, Total 3.3 mg/dL (0.2-1.0)
[2023-01-01] MEDS: VASOPRESSIN 20 UNITS in SODIUM CHL 0.9% 99 ML IV SCH ×3 (05:39→16:46)
[2023-01-01] MEDS ORDERED: POTASSIUM CHL 20MEQ/100ML 100 ML IV ONE (07:30)
[2023-01-01] MEDS: methylPREDNISolone SOD SUCC 40 MG/ML VL IV SCH (09:12)
[2023-01-01] MEDS: LACTULOSE 20Gm/30ML SOLN PO SCH (09:12)
[2023-01-01] MEDS: AMIODARONE HCL 200 MG TAB PO SCH ×2 (09:14→22:10)
[2023-01-01] MEDS: CARVEDILOL 3.125 MG TAB GT SCH ×2 (09:14→22:10)
[2023-01-01] MEDS: CALCIUM ACETATE 667 MG CAP PO SCH ×3 (09:15→18:06)
[2023-01-01] MEDS: NYSTATIN TOPICAL POWDER 15GM TOP SCH ×2 (09:15→22:11)
[2023-01-01] MEDS: NOREPINEPHRINE BITARTRATE 16 MG in SODIUM CHL 0.9% 234 ML IV SCH (11:30)
[2023-01-01] MEDS: fentaNYL Drip 2500mCg/250mlNS 250 ML IV SCH (19:10)
[2023-01-01] MEDS: PROPOFOL 100 ML IV SCH (19:10)
[2023-01-02] VITALS (78 sets, daily range): BP systolic 78–149; BP diastolic 52–90
[2023-01-02] MEDS: ACCU-CHEK COMFORT CURVE STRIP VI SCH ×4 (00:54→17:42)
[2023-01-02] MEDS: InsuLIN REG 1unit/0.01ml Soln (100units/ml) SC SCH ×4 (00:58→17:42)
[2023-01-02] MEDS: ALBUTEROL SULF 2.5 MG/0.5ML(0.5%) NEB SOLN NEB SCH ×6 (02:20→22:04)
[2023-01-02] MEDS: IPRATROPIUM BROM 0.5 MG/2.5ML INH SOL NEB SCH ×6 (02:20→22:04)
[2023-01-02] MEDS: VASOPRESSIN 20 UNITS in SODIUM CHL 0.9% 99 ML IV SCH ×2 (03:53→15:00)
[2023-01-02 04:22] LABS: Hemoglobin 7.8 g/dL (13.5-17.5); White Blood Cell 5.5 10^3/uL (4.4-10.8)
[2023-01-02 04:25] LABS: Hematocrit 23.8 % (41.0-53.0); Mean Corpuscular Hemoglobin 27.1 pg (28.0-32.0); Mean Corpuscular Hgb Conc. 32.8 g/dL (32.0-36.0); Mean Corpuscular Volume 82.5 fL (80.0-100.0); Red Blood Cells 2.88 10^6/uL (4.5-5.90)
[2023-01-02 04:34] LABS: BUN/Creatinine Ratio 17.2 (10.0-20.0); Calcium 9.3 mg/dL (8.5-10.1); Potassium 3.1 mmol/L (3.5-5.1)
[2023-01-02 05:04] LABS: Red Cell Distribution Width 20.1 % (11.8-14.3)
[2023-01-02 05:05] LABS: Basophils % (manual) 0 (0.0-2.0); Blast Cells 0; Eosinophils % (manual) 0 (0-7); Metamyelocytes % 0; Myelocytes % 0; Promyelocytes % 0; Reactive Lymphocytes 0
[2023-01-02 07:16] LABS: Band Neutrophils % (manual) 4; Lymphocytes % (manual) 12 (10.0-50.0); Monocytes % (manual) 6 (0-12)
[2023-01-02] MEDS ORDERED: POTASSIUM CHL 20MEQ/100ML 100 ML IV ONE (07:30)
[2023-01-02] MEDS: CALCIUM ACETATE 667 MG CAP PO SCH ×3 (09:30→17:56)
[2023-01-02] MEDS: LACTULOSE 20Gm/30ML SOLN PO SCH (09:30)
[2023-01-02] MEDS: methylPREDNISolone SOD SUCC 40 MG/ML VL IV SCH (09:30)
[2023-01-02] MEDS: AMIODARONE HCL 200 MG TAB PO SCH ×2 (09:31→21:43)
[2023-01-02] MEDS: CARVEDILOL 3.125 MG TAB GT SCH ×2 (09:31→21:44)
[2023-01-02] MEDS: NYSTATIN TOPICAL POWDER 15GM TOP SCH ×2 (09:35→21:44)
[2023-01-02] MEDS: NOREPINEPHRINE BITARTRATE 16 MG in SODIUM CHL 0.9% 234 ML IV SCH (11:30)
[2023-01-02] MEDS: POTASSIUM CHL 20MEQ/100ML 100 ML IV SCH ×2 (13:45→16:39)
[2023-01-02] MEDS: PROPOFOL 100 ML IV SCH (16:38)
[2023-01-02] MEDS: AMINO ACID INFUSION IN D10W 1,000 ML IV NR (20:00)
[2023-01-03] VITALS (89 sets, daily range): BP systolic 74–178; BP diastolic 42–88
[2023-01-03] MEDS: InsuLIN REG 1unit/0.01ml Soln (100units/ml) SC SCH ×5 (00:25→23:38)
[2023-01-03] MEDS: fentaNYL Drip 2500mCg/250mlNS 250 ML IV SCH ×2 (00:30→07:23)
[2023-01-03] MEDS: ALBUTEROL SULF 2.5 MG/0.5ML(0.5%) NEB SOLN NEB SCH ×6 (01:54→21:59)
[2023-01-03] MEDS: IPRATROPIUM BROM 0.5 MG/2.5ML INH SOL NEB SCH ×6 (01:54→21:59)
[2023-01-03] MEDS: VASOPRESSIN 20 UNITS in SODIUM CHL 0.9% 99 ML IV SCH ×2 (02:07→12:54)
[2023-01-03 04:33] LABS: Albumin 2.2 g/dL (3.4-5.0)
[2023-01-03 04:38] LABS: BUN/Creatinine Ratio 20.3 (10.0-20.0); Bilirubin, Total 2.7 mg/dL (0.2-1.0); Phosphorus 1.9 mg/dL (2.5-4.90); Total Protein 4.8 g/dL (6.4-8.2)
[2023-01-03] MEDS: ACCU-CHEK COMFORT CURVE STRIP VI SCH ×5 (06:00→23:53)
[2023-01-03] MEDS: PROPOFOL 100 ML IV SCH (07:22)
[2023-01-03] MEDS: CALCIUM ACETATE 667 MG CAP PO SCH ×3 (08:00→18:51)
[2023-01-03] MEDS: NOREPINEPHRINE BITARTRATE 16 MG in SODIUM CHL 0.9% 234 ML IV SCH (09:28)
[2023-01-03] MEDS: CARVEDILOL 3.125 MG TAB GT SCH ×2 (09:41→22:06)
[2023-01-03] MEDS: LACTULOSE 20Gm/30ML SOLN PO SCH (09:42)
[2023-01-03] MEDS ORDERED: SODIUM PHOSPHATES 20 MEQ in SODIUM CHL 0.9% 100 ML IV ONE (10:00)
[2023-01-03] MEDS: methylPREDNISolone SOD SUCC 40 MG/ML VL IV SCH (10:36)
[2023-01-03] MEDS: AMIODARONE HCL 200 MG TAB PO SCH ×2 (10:36→22:05)
[2023-01-03] MEDS: NYSTATIN TOPICAL POWDER 15GM TOP SCH ×2 (10:37→22:06)
[2023-01-03] MEDS ORDERED: SODIUM CHL 0.9% 1000 ML BAG XX ONE (11:00)
[2023-01-03] MEDS ORDERED: ALBUMIN 25% 200 ML IV ONE (11:07)
[2023-01-03] MEDS: ALBUMIN 25% 100 ML IV PRN ×2 (11:19→11:20)
[2023-01-03] MEDS ORDERED: PANTOPRAZOLE 40 MG/10 ML VIAL INJ IV ONE (15:00)
[2023-01-03] MEDS: AMINO ACID INFUSION IN D10W 1,000 ML IV NR (20:19)
[2023-01-03] MEDS ORDERED: EPOETIN ALFA-EPBX 10,000 UNIT/1ML VIAL SC ONE (21:00)
[2023-01-03] MEDS: METOCLOPRAMIDE HCL 5MG/ml INJ 2ml VIAL IV SCH (22:05)
[2023-01-04] VITALS (88 sets, daily range): BP systolic 77–169; BP diastolic 38–132
[2023-01-04] MEDS: VASOPRESSIN 20 UNITS in SODIUM CHL 0.9% 99 ML IV SCH ×3 (00:21→22:35)
[2023-01-04] MEDS: IPRATROPIUM BROM 0.5 MG/2.5ML INH SOL NEB SCH ×6 (02:02→22:10)
[2023-01-04] MEDS: ALBUTEROL SULF 2.5 MG/0.5ML(0.5%) NEB SOLN NEB SCH ×6 (02:02→22:10)
[2023-01-04 03:30] LABS: Basophils # (auto) 0 10 ^3/uL (0-0.2); Eosinophils # (auto) 0 10 ^3/uL (0-0.8); Hematocrit 20.1 % (41.0-53.0); Mean Corpuscular Volume 80.1 fL (80.0-100.0); Monocytes # (auto) 0.4 10 ^3/uL (0-1.3); Neutrophils # (auto) 4.3 10 ^3/uL (1.6-8.6); Red Blood Cells 2.51 10^6/uL (4.5-5.90)
[2023-01-04 03:40] LABS: Basophils % (auto) 0.5 % (0.0-2.0); Eosinophils % (auto) 0.8 % (0.0-7.0); Lymphocytes # (auto) 0.3 10 ^3/uL (0.4-5.4); Mean Corpuscular Hemoglobin 26.9 pg (28.0-32.0); Mean Corpuscular Hgb Conc. 33.6 g/dL (32.0-36.0); Monocytes % (auto) 7.8 % (0.0-12.0); Neutrophils % (auto) 84.9 % (37.0-80.0)
[2023-01-04 03:48] LABS: Albumin 2.6 g/dL (3.4-5.0); BUN/Creatinine Ratio 19.6 (10.0-20.0); Potassium 3.7 mmol/L (3.5-5.1)
[2023-01-04 03:51] LABS: Bilirubin, Total 2.8 mg/dL (0.2-1.0); Total Protein 5.3 g/dL (6.4-8.2)
[2023-01-04 04:13] LABS: Hemoglobin 6.8 g/dL (13.5-17.5); Red Cell Distribution Width 20.4 % (11.8-14.3)
[2023-01-04] MEDS: METOCLOPRAMIDE HCL 5MG/ml INJ 2ml VIAL IV SCH ×3 (05:53→22:40)
[2023-01-04] MEDS: InsuLIN REG 1unit/0.01ml Soln (100units/ml) SC SCH ×4 (06:00→23:33)
[2023-01-04] MEDS: ACCU-CHEK COMFORT CURVE STRIP VI SCH ×4 (06:22→23:32)
[2023-01-04] MEDS: CALCIUM ACETATE 667 MG CAP PO SCH ×3 (08:00→13:59)
[2023-01-04] MEDS: fentaNYL Drip 2500mCg/250mlNS 250 ML IV SCH (09:40)
[2023-01-04] MEDS: methylPREDNISolone SOD SUCC 40 MG/ML VL IV SCH (09:41)
[2023-01-04] MEDS: AMIODARONE HCL 200 MG TAB PO SCH ×2 (09:41→22:40)
[2023-01-04] MEDS: PANTOPRAZOLE 40 MG/10 ML VIAL INJ IV SCH (09:41)
[2023-01-04] MEDS: LACTULOSE 20Gm/30ML SOLN PO SCH (09:41)
[2023-01-04] MEDS: NYSTATIN TOPICAL POWDER 15GM TOP SCH ×2 (09:42→22:41)
[2023-01-04] MEDS: CARVEDILOL 3.125 MG TAB GT SCH ×2 (09:42→22:37)
[2023-01-04] MEDS: NOREPINEPHRINE BITARTRATE 16 MG in SODIUM CHL 0.9% 234 ML IV SCH ×2 (11:30→22:40)
[2023-01-04] MEDS: PROPOFOL 100 ML IV SCH (14:05)
[2023-01-04] MEDS ORDERED: ALBUMIN 25% 100 ML IV PRN (19:00)
[2023-01-04] MEDS: AMINO ACID INFUSION IN D10W 1,000 ML IV NR (20:28)
[2023-01-05] VITALS (91 sets, daily range): BP systolic 89–195; BP diastolic 38–82
[2023-01-05] MEDS: ALBUTEROL SULF 2.5 MG/0.5ML(0.5%) NEB SOLN NEB SCH ×5 (02:05→21:52)
[2023-01-05] MEDS: IPRATROPIUM BROM 0.5 MG/2.5ML INH SOL NEB SCH ×5 (02:05→21:52)
[2023-01-05] MEDS: PROPOFOL 100 ML IV SCH ×2 (02:10→12:47)
[2023-01-05] MEDS: fentaNYL Drip 2500mCg/250mlNS 250 ML IV SCH ×2 (02:46→06:30)
[2023-01-05 04:25] LABS: Albumin 2.4 g/dL (3.4-5.0); Calcium 8.4 mg/dL (8.5-10.1); Magnesium 1.9 mg/dL (1.6-2.6); Potassium 3.6 mmol/L (3.5-5.1)
[2023-01-05 04:30] LABS: Bilirubin, Total 3.3 mg/dL (0.2-1.0); Phosphorus 2.8 mg/dL (2.5-4.90)
[2023-01-05 04:52] LABS: Basophils # (auto) 0 10 ^3/uL (0-0.2); Hemoglobin 7.7 g/dL (13.5-17.5); Lymphocytes # (auto) 0.3 10 ^3/uL (0.4-5.4); Neutrophils # (auto) 4.7 10 ^3/uL (1.6-8.6); Neutrophils % (auto) 84.4 % (37.0-80.0); White Blood Cell 5.6 10^3/uL (4.4-10.8)
[2023-01-05 04:55] LABS: Basophils % (auto) 0.7 % (0.0-2.0); Eosinophils # (auto) 0.1 10 ^3/uL (0-0.8); Eosinophils % (auto) 1.3 % (0.0-7.0); Hematocrit 22.9 % (41.0-53.0); Lymphocytes % (auto) 5.9 % (10.0-50.0); Mean Corpuscular Hemoglobin 27.9 pg (28.0-32.0); Mean Corpuscular Hgb Conc. 33.6 g/dL (32.0-36.0); Mean Corpuscular Volume 83.2 fL (80.0-100.0); Monocytes # (auto) 0.4 10 ^3/uL (0-1.3); Monocytes % (auto) 7.7 % (0.0-12.0); Nucleated Red Blood Cells % 1.2 %; Red Blood Cells 2.75 10^6/uL (4.5-5.90)
[2023-01-05 04:57] LABS: Red Cell Distribution Width 20.6 % (11.8-14.3)
[2023-01-05] MEDS: ALBUMIN 25% 100 ML IV PRN (05:21)
[2023-01-05] MEDS: InsuLIN REG 1unit/0.01ml Soln (100units/ml) SC SCH ×3 (06:00→17:42)
[2023-01-05] MEDS: ACCU-CHEK COMFORT CURVE STRIP VI SCH ×3 (06:09→17:39)
[2023-01-05] MEDS: METOCLOPRAMIDE HCL 5MG/ml INJ 2ml VIAL IV SCH ×3 (06:10→20:33)
[2023-01-05] MEDS: CALCIUM ACETATE 667 MG CAP PO SCH ×3 (08:00→18:00)
[2023-01-05] MEDS: VASOPRESSIN 20 UNITS in SODIUM CHL 0.9% 99 ML IV SCH ×2 (09:42→20:41)
[2023-01-05] MEDS: LACTULOSE 20Gm/30ML SOLN PO SCH (10:00)
[2023-01-05] MEDS: methylPREDNISolone SOD SUCC 40 MG/ML VL IV SCH (10:05)
[2023-01-05] MEDS: PANTOPRAZOLE 40 MG/10 ML VIAL INJ IV SCH (10:05)
[2023-01-05] MEDS: NYSTATIN TOPICAL POWDER 15GM TOP SCH (10:05)
[2023-01-05] MEDS: AMIODARONE HCL 200 MG TAB PO SCH ×2 (10:06→20:32)
[2023-01-05] MEDS: CARVEDILOL 3.125 MG TAB GT SCH ×2 (10:07→20:33)
[2023-01-05] MEDS: AMINO ACID INFUSION IN D10W 1,000 ML IV NR (20:11)
[2023-01-05] MEDS ORDERED: EPOETIN ALFA-EPBX 10,000 UNIT/1ML VIAL SC ONE (21:00)
[2023-01-06] VITALS (108 sets, daily range): BP systolic 94–189; BP diastolic 43–84
[2023-01-06] MEDS: hydrALAZINE HCL 20 MG/ML VL IV PRN ×2 (00:38→13:24)
[2023-01-06] MEDS: ACCU-CHEK COMFORT CURVE STRIP VI SCH ×4 (00:48→18:01)
[2023-01-06] MEDS: InsuLIN REG 1unit/0.01ml Soln (100units/ml) SC SCH ×4 (00:49→18:04)
[2023-01-06] MEDS: IPRATROPIUM BROM 0.5 MG/2.5ML INH SOL NEB SCH ×6 (02:26→22:15)
[2023-01-06] MEDS: ALBUTEROL SULF 2.5 MG/0.5ML(0.5%) NEB SOLN NEB SCH ×6 (02:26→22:15)
[2023-01-06 04:26] LABS: Hemoglobin 7.3 g/dL (13.5-17.5)
[2023-01-06 04:40] LABS: Albumin 2.6 g/dL (3.4-5.0); BUN/Creatinine Ratio 20.9 (10.0-20.0); Calcium 8.9 mg/dL (8.5-10.1); Magnesium 1.9 mg/dL (1.6-2.6); Potassium 3.3 mmol/L (3.5-5.1)
[2023-01-06 04:43] LABS: Bilirubin, Total 2.8 mg/dL (0.2-1.0); Total Protein 5.3 g/dL (6.4-8.2)
[2023-01-06 05:33] LABS: Hematocrit 21.3 % (41.0-53.0); Mean Corpuscular Hemoglobin 28.4 pg (28.0-32.0); Mean Corpuscular Hgb Conc. 34.1 g/dL (32.0-36.0); Mean Corpuscular Volume 83.4 fL (80.0-100.0); Red Blood Cells 2.56 10^6/uL (4.5-5.90); Red Cell Distribution Width 20.8 % (11.8-14.3); White Blood Cell 5.8 10^3/uL (4.4-10.8)
[2023-01-06 05:34] LABS: Basophils % (manual) 0 (0.0-2.0); Blast Cells 0; Eosinophils % (manual) 0 (0-7); Metamyelocytes % 0; Myelocytes % 0; Promyelocytes % 0; Reactive Lymphocytes 0
[2023-01-06] MEDS: METOCLOPRAMIDE HCL 5MG/ml INJ 2ml VIAL IV SCH ×3 (05:43→22:00)
[2023-01-06] MEDS: fentaNYL Drip 2500mCg/250mlNS 250 ML IV SCH (06:30)
[2023-01-06] MEDS: CALCIUM ACETATE 667 MG CAP PO SCH ×3 (07:33→18:00)
[2023-01-06] MEDS: VASOPRESSIN 20 UNITS in SODIUM CHL 0.9% 99 ML IV SCH ×2 (07:33→19:03)
[2023-01-06 07:44] LABS: Band Neutrophils % (manual) 5; Lymphocytes % (manual) 6 (10.0-50.0); Monocytes % (manual) 5 (0-12)
[2023-01-06] MEDS ORDERED: POTASSIUM CHL 20MEQ/100ML 100 ML IV ONE (10:00)
[2023-01-06] MEDS: LACTULOSE 20Gm/30ML SOLN PO SCH (10:00)
[2023-01-06] MEDS: PANTOPRAZOLE 40 MG/10 ML VIAL INJ IV SCH (10:00)
[2023-01-06] MEDS: CARVEDILOL 3.125 MG TAB GT SCH ×2 (10:14→22:23)
[2023-01-06] MEDS: methylPREDNISolone SOD SUCC 40 MG/ML VL IV SCH (10:15)
[2023-01-06] MEDS: AMIODARONE HCL 200 MG TAB PO SCH ×2 (10:15→22:21)
[2023-01-06] MEDS: NOREPINEPHRINE BITARTRATE 16 MG in SODIUM CHL 0.9% 234 ML IV SCH (11:30)
[2023-01-06] MEDS: AMINO ACID INFUSION IN D10W 1,000 ML IV NR (20:08)
[2023-01-07] VITALS (115 sets, daily range): BP systolic 103–181; BP diastolic 52–90
[2023-01-07] MEDS: InsuLIN REG 1unit/0.01ml Soln (100units/ml) SC SCH ×4 (00:34→18:03)
[2023-01-07] MEDS: IPRATROPIUM BROM 0.5 MG/2.5ML INH SOL NEB SCH ×6 (02:05→23:06)
[2023-01-07] MEDS: ALBUTEROL SULF 2.5 MG/0.5ML(0.5%) NEB SOLN NEB SCH ×5 (02:05→23:06)
[2023-01-07 04:19] LABS: Albumin 2.5 g/dL (3.4-5.0); BUN/Creatinine Ratio 22.6 (10.0-20.0); Calcium 8.5 mg/dL (8.5-10.1); Magnesium 1.7 mg/dL (1.6-2.6); Potassium 3.6 mmol/L (3.5-5.1)
[2023-01-07 04:22] LABS: Bilirubin, Total 2.2 mg/dL (0.2-1.0); Phosphorus 3.3 mg/dL (2.5-4.90); Total Protein 5.1 g/dL (6.4-8.2)
[2023-01-07 04:26] LABS: Hematocrit 20.5 % (41.0-53.0); Mean Corpuscular Hemoglobin 27.4 pg (28.0-32.0); Mean Corpuscular Hgb Conc. 32.9 g/dL (32.0-36.0); Mean Corpuscular Volume 83.3 fL (80.0-100.0); Red Blood Cells 2.47 10^6/uL (4.5-5.90); White Blood Cell 7.1 10^3/uL (4.4-10.8)
[2023-01-07 04:45] LABS: Red Cell Distribution Width 21.3 % (11.8-14.3)
[2023-01-07 04:55] LABS: Hemoglobin 6.8 g/dL (13.5-17.5)
[2023-01-07 04:57] LABS: Basophils % (manual) 0 (0.0-2.0); Blast Cells 0; Metamyelocytes % 0; Myelocytes % 0; Promyelocytes % 0; Reactive Lymphocytes 0
[2023-01-07 05:02] LABS: Band Neutrophils % (manual) 14; Eosinophils % (manual) 2 (0-7); Lymphocytes % (manual) 4 (10.0-50.0); Monocytes % (manual) 5 (0-12)
[2023-01-07] MEDS: METOCLOPRAMIDE HCL 5MG/ml INJ 2ml VIAL IV SCH ×3 (05:38→22:57)
[2023-01-07] MEDS: ACCU-CHEK COMFORT CURVE STRIP VI SCH ×4 (05:48→17:59)
[2023-01-07] MEDS: fentaNYL Drip 2500mCg/250mlNS 250 ML IV SCH (05:48)
[2023-01-07] MEDS: VASOPRESSIN 20 UNITS in SODIUM CHL 0.9% 99 ML IV SCH ×2 (05:54→17:17)
[2023-01-07] MEDS: CALCIUM ACETATE 667 MG CAP PO SCH ×3 (08:15→17:59)
[2023-01-07] MEDS: AMIODARONE HCL 200 MG TAB PO SCH ×2 (09:33→22:58)
[2023-01-07] MEDS: LACTULOSE 20Gm/30ML SOLN PO SCH (09:34)
[2023-01-07] MEDS: CARVEDILOL 3.125 MG TAB GT SCH ×2 (09:34→22:57)
[2023-01-07] MEDS: methylPREDNISolone SOD SUCC 40 MG/ML VL IV SCH (10:00)
[2023-01-07] MEDS: NOREPINEPHRINE BITARTRATE 16 MG in SODIUM CHL 0.9% 234 ML IV SCH (11:30)
[2023-01-07] MEDS ORDERED: hydrALAZINE HCL 20 MG/ML VL IV PRN (13:30)
[2023-01-07] MEDS: AMINO ACID INFUSION IN D10W 1,000 ML IV NR (18:56)
[2023-01-08] VITALS (112 sets, daily range): BP systolic 105–200; BP diastolic 52–85
[2023-01-08 03:54] LABS: Basophils # (auto) 0 10 ^3/uL (0-0.2); Eosinophils # (auto) 0 10 ^3/uL (0-0.8); Hemoglobin 7.5 g/dL (13.5-17.5); Lymphocytes % (auto) 4.3 % (10.0-50.0); Monocytes # (auto) 0.3 10 ^3/uL (0-1.3); White Blood Cell 5.8 10^3/uL (4.4-10.8)
[2023-01-08 03:57] LABS: Basophils % (auto) 0.2 % (0.0-2.0); Eosinophils % (auto) 0.1 % (0.0-7.0); Hematocrit 22.3 % (41.0-53.0); Lymphocytes # (auto) 0.3 10 ^3/uL (0.4-5.4); Mean Corpuscular Hemoglobin 28.2 pg (28.0-32.0); Mean Corpuscular Hgb Conc. 33.7 g/dL (32.0-36.0); Mean Corpuscular Volume 83.8 fL (80.0-100.0); Monocytes % (auto) 4.9 % (0.0-12.0); Neutrophils # (auto) 5.3 10 ^3/uL (1.6-8.6); Neutrophils % (auto) 90.5 % (37.0-80.0); Nucleated Red Blood Cells % 0.5 %; Red Blood Cells 2.67 10^6/uL (4.5-5.90); Red Cell Distribution Width 19.9 % (11.8-14.3)
[2023-01-08 04:09] LABS: INR 1.13 (0.9-1.15); Partial Thromboplastin Time 33.1 sec (24.6-33.4)
[2023-01-08] MEDS: IPRATROPIUM BROM 0.5 MG/2.5ML INH SOL NEB SCH ×6 (04:24→22:06)
[2023-01-08] MEDS: VASOPRESSIN 20 UNITS in SODIUM CHL 0.9% 99 ML IV SCH ×2 (04:24→15:31)
[2023-01-08] MEDS: ALBUTEROL SULF 2.5 MG/0.5ML(0.5%) NEB SOLN NEB SCH ×6 (04:24→22:06)
[2023-01-08 04:31] LABS: Albumin 2.3 g/dL (3.4-5.0); Calcium 8.3 mg/dL (8.5-10.1); Magnesium 1.8 mg/dL (1.6-2.6); Potassium 3.6 mmol/L (3.5-5.1)
[2023-01-08 04:36] LABS: BUN/Creatinine Ratio 23.1 (10.0-20.0); Bilirubin, Direct 1.7 mg/dL (0-0.2); Bilirubin, Total 2.2 mg/dL (0.2-1.0); Phosphorus 3.3 mg/dL (2.5-4.90); Total Protein 4.9 g/dL (6.4-8.2); Uric Acid 7.2 mg/dL (3.5-7.2)
[2023-01-08 04:40] LABS: CRP High Sensitivity 2.98 mg/dL (< 0.3); Pre Albumin 12.1 mg/dL (20.0-40.0)
[2023-01-08] MEDS: ACCU-CHEK COMFORT CURVE STRIP VI SCH ×4 (06:00→18:35)
[2023-01-08] MEDS: InsuLIN REG 1unit/0.01ml Soln (100units/ml) SC SCH ×4 (06:00→18:36)
[2023-01-08] MEDS: METOCLOPRAMIDE HCL 5MG/ml INJ 2ml VIAL IV SCH ×3 (06:00→23:59)
[2023-01-08] MEDS: fentaNYL Drip 2500mCg/250mlNS 250 ML IV SCH ×2 (06:30→11:55)
[2023-01-08] MEDS: CALCIUM ACETATE 667 MG CAP PO SCH ×3 (08:00→18:00)
[2023-01-08] MEDS: CARVEDILOL 3.125 MG TAB GT SCH (09:44)
[2023-01-08] MEDS: methylPREDNISolone SOD SUCC 40 MG/ML VL IV SCH (09:44)
[2023-01-08] MEDS: AMIODARONE HCL 200 MG TAB PO SCH ×2 (09:44→23:59)
[2023-01-08] MEDS: LACTULOSE 20Gm/30ML SOLN PO SCH (09:45)
[2023-01-08] MEDS: NOREPINEPHRINE BITARTRATE 16 MG in SODIUM CHL 0.9% 234 ML IV SCH (11:30)
[2023-01-08 13:34] LABS: Hemoglobin 7.7 g/dL (13.5-17.5); Mean Corpuscular Hemoglobin 27.7 pg (28.0-32.0); Mean Corpuscular Hgb Conc. 33.7 g/dL (32.0-36.0); Mean Corpuscular Volume 82.2 fL (80.0-100.0); Red Cell Distribution Width 19.7 % (11.8-14.3); White Blood Cell 7.4 10^3/uL (4.4-10.8)
[2023-01-08 13:42] LABS: Basophils % (manual) 0 (0.0-2.0); Blast Cells 0; Eosinophils % (manual) 0 (0-7); Metamyelocytes % 0; Myelocytes % 0; Promyelocytes % 0; Reactive Lymphocytes 0
[2023-01-08 14:24] LABS: Band Neutrophils % (manual) 13; Lymphocytes % (manual) 2 (10.0-50.0); Monocytes % (manual) 3 (0-12)
[2023-01-08] MEDS: AMINO ACID INFUSION IN D10W 1,000 ML IV NR (19:44)
[2023-01-09] VITALS (99 sets, daily range): BP systolic 74–212; BP diastolic 42–108
[2023-01-09] MEDS: ACCU-CHEK COMFORT CURVE STRIP VI SCH ×4 (00:05→17:33)
[2023-01-09] MEDS: InsuLIN REG 1unit/0.01ml Soln (100units/ml) SC SCH ×4 (00:15→17:35)
[2023-01-09] MEDS: ALBUTEROL SULF 2.5 MG/0.5ML(0.5%) NEB SOLN NEB SCH ×6 (02:00→23:20)
[2023-01-09] MEDS: IPRATROPIUM BROM 0.5 MG/2.5ML INH SOL NEB SCH ×6 (02:00→23:20)
[2023-01-09] MEDS: VASOPRESSIN 20 UNITS in SODIUM CHL 0.9% 99 ML IV SCH ×2 (02:38→13:45)
[2023-01-09 03:35] LABS: Albumin 2.4 g/dL (3.4-5.0); Calcium 8.2 mg/dL (8.5-10.1); Magnesium 1.8 mg/dL (1.6-2.6); Potassium 3.7 mmol/L (3.5-5.1)
[2023-01-09 03:38] LABS: BUN/Creatinine Ratio 24.4 (10.0-20.0); Bilirubin, Total 2.3 mg/dL (0.2-1.0); Phosphorus 4.2 mg/dL (2.5-4.90)
[2023-01-09 03:50] LABS: Basophils # (auto) 0 10 ^3/uL (0-0.2); Eosinophils # (auto) 0 10 ^3/uL (0-0.8); Eosinophils % (auto) 0.1 % (0.0-7.0); Hematocrit 21.2 % (41.0-53.0); Hemoglobin 7.3 g/dL (13.5-17.5); Lymphocytes # (auto) 0.3 10 ^3/uL (0.4-5.4); Lymphocytes % (auto) 4.1 % (10.0-50.0); Mean Corpuscular Hemoglobin 28.2 pg (28.0-32.0); Mean Corpuscular Hgb Conc. 34.4 g/dL (32.0-36.0); Monocytes # (auto) 0.3 10 ^3/uL (0-1.3); Monocytes % (auto) 4.1 % (0.0-12.0); Neutrophils # (auto) 7.1 10 ^3/uL (1.6-8.6); Neutrophils % (auto) 91.7 % (37.0-80.0); Nucleated Red Blood Cells % 0.1 %; Red Blood Cells 2.58 10^6/uL (4.5-5.90); White Blood Cell 7.8 10^3/uL (4.4-10.8)
[2023-01-09 04:05] LABS: Red Cell Distribution Width 20.1 % (11.8-14.3)
[2023-01-09] MEDS: LORazepam 2MG/ML-1ML VIAL IV PRN (05:52)
[2023-01-09] MEDS: METOCLOPRAMIDE HCL 5MG/ml INJ 2ml VIAL IV SCH ×3 (06:00→22:01)
[2023-01-09] MEDS: fentaNYL Drip 2500mCg/250mlNS 250 ML IV SCH ×2 (06:36→19:04)
[2023-01-09] MEDS: CALCIUM ACETATE 667 MG CAP PO SCH ×3 (08:00→17:38)
[2023-01-09] MEDS ORDERED: SODIUM CHL 0.9% 1000 ML BAG XX ONE (09:00)
[2023-01-09] MEDS: LACTULOSE 20Gm/30ML SOLN PO SCH (10:00)
[2023-01-09] MEDS: PROPOFOL 100 ML IV SCH ×2 (11:00→17:30)
[2023-01-09] MEDS ORDERED: PROPOFOL 100 ML IV ONE (11:05)
[2023-01-09] MEDS: NOREPINEPHRINE BITARTRATE 16 MG in SODIUM CHL 0.9% 234 ML IV SCH (11:45)
[2023-01-09] MEDS: AMIODARONE HCL 200 MG TAB PO SCH ×2 (12:49→22:02)
[2023-01-09] MEDS: methylPREDNISolone SOD SUCC 40 MG/ML VL IV SCH (12:49)
[2023-01-09] MEDS: CARVEDILOL 3.125 MG TAB GT SCH ×3 (12:50→22:02)
[2023-01-09] MEDS: AMINO ACID INFUSION IN D10W 1,000 ML IV NR (19:23)
[2023-01-09] MEDS ORDERED: EPOETIN ALFA-EPBX 10,000 UNIT/1ML VIAL SC ONE (21:00)
[2023-01-10] VITALS (100 sets, daily range): BP systolic 110–172; BP diastolic 51–83
[2023-01-10] MEDS: VASOPRESSIN 20 UNITS in SODIUM CHL 0.9% 99 ML IV SCH ×3 (00:52→23:06)
[2023-01-10] MEDS: PROPOFOL 100 ML IV SCH ×4 (01:52→20:18)
[2023-01-10] MEDS: ALBUTEROL SULF 2.5 MG/0.5ML(0.5%) NEB SOLN NEB SCH ×6 (02:25→21:53)
[2023-01-10] MEDS: IPRATROPIUM BROM 0.5 MG/2.5ML INH SOL NEB SCH ×6 (02:25→21:53)
[2023-01-10 04:46] LABS: Albumin 2.3 g/dL (3.4-5.0); Calcium 8.2 mg/dL (8.5-10.1); Potassium 3.4 mmol/L (3.5-5.1)
[2023-01-10 04:51] LABS: BUN/Creatinine Ratio 21.6 (10.0-20.0); Bilirubin, Total 2.2 mg/dL (0.2-1.0); Magnesium 1.7 mg/dL (1.6-2.6); Phosphorus 3.4 mg/dL (2.5-4.90); Total Protein 4.9 g/dL (6.4-8.2)
[2023-01-10] MEDS: fentaNYL Drip 2500mCg/250mlNS 250 ML IV SCH ×2 (05:14→18:23)
[2023-01-10] MEDS: METOCLOPRAMIDE HCL 5MG/ml INJ 2ml VIAL IV SCH ×3 (06:00→21:46)
[2023-01-10] MEDS: ACCU-CHEK COMFORT CURVE STRIP VI SCH ×4 (06:17→17:45)
[2023-01-10] MEDS: InsuLIN REG 1unit/0.01ml Soln (100units/ml) SC SCH ×4 (06:17→17:46)
[2023-01-10] MEDS: CALCIUM ACETATE 667 MG CAP PO SCH ×3 (08:00→18:00)
[2023-01-10] MEDS: methylPREDNISolone SOD SUCC 40 MG/ML VL IV SCH (09:49)
[2023-01-10] MEDS: AMIODARONE HCL 200 MG TAB PO SCH ×2 (09:50→21:45)
[2023-01-10] MEDS: CARVEDILOL 3.125 MG TAB GT SCH ×2 (09:50→21:45)
[2023-01-10] MEDS ORDERED: POTASSIUM CHL 20MEQ/100ML 100 ML IV ONE (11:30)
[2023-01-10] MEDS: NOREPINEPHRINE BITARTRATE 16 MG in SODIUM CHL 0.9% 234 ML IV SCH (11:30)
[2023-01-10] MEDS: LACTULOSE 20Gm/30ML SOLN PO SCH (11:49)
[2023-01-10 11:50] LABS: Basophils # (auto) 0 10 ^3/uL (0-0.2); Eosinophils # (auto) 0 10 ^3/uL (0-0.8); Eosinophils % (auto) 0.2 % (0.0-7.0); Hemoglobin 7.1 g/dL (13.5-17.5); Lymphocytes # (auto) 0.1 10 ^3/uL (0.4-5.4); Monocytes # (auto) 0.4 10 ^3/uL (0-1.3)
[2023-01-10 11:52] LABS: Basophils % (auto) 0.2 % (0.0-2.0); Hematocrit 20.6 % (41.0-53.0); Lymphocytes % (auto) 1.8 % (10.0-50.0); Mean Corpuscular Hemoglobin 28.4 pg (28.0-32.0); Mean Corpuscular Hgb Conc. 34.4 g/dL (32.0-36.0); Mean Corpuscular Volume 82.5 fL (80.0-100.0); Monocytes % (auto) 4.4 % (0.0-12.0); Neutrophils # (auto) 7.7 10 ^3/uL (1.6-8.6); Neutrophils % (auto) 93.4 % (37.0-80.0); Nucleated Red Blood Cells % 0.2 %; White Blood Cell 8.2 10^3/uL (4.4-10.8)
[2023-01-10 13:32] LABS: Red Cell Distribution Width 20.1 % (11.8-14.3)
[2023-01-10] MEDS: AMINO ACID INFUSION IN D10W 1,000 ML IV NR (18:22)
[2023-01-11] VITALS (103 sets, daily range): BP systolic 73–171; BP diastolic 32–85
[2023-01-11] MEDS: ACCU-CHEK COMFORT CURVE STRIP VI SCH ×4 (00:15→17:40)
[2023-01-11] MEDS: InsuLIN REG 1unit/0.01ml Soln (100units/ml) SC SCH ×4 (00:16→17:42)
[2023-01-11] MEDS: PROPOFOL 100 ML IV SCH ×6 (01:22→23:27)
[2023-01-11] MEDS: IPRATROPIUM BROM 0.5 MG/2.5ML INH SOL NEB SCH ×6 (02:13→22:10)
[2023-01-11] MEDS: ALBUTEROL SULF 2.5 MG/0.5ML(0.5%) NEB SOLN NEB SCH ×6 (02:13→22:10)
[2023-01-11 04:31] LABS: Basophils # (auto) 0 10 ^3/uL (0-0.2); Eosinophils # (auto) 0 10 ^3/uL (0-0.8); Nucleated Red Blood Cells % 0.3 %
[2023-01-11 04:34] LABS: Basophils % (auto) 0.6 % (0.0-2.0); Hematocrit 18.7 % (41.0-53.0); Lymphocytes # (auto) 0.2 10 ^3/uL (0.4-5.4); Lymphocytes % (auto) 3.2 % (10.0-50.0); Mean Corpuscular Hemoglobin 29.2 pg (28.0-32.0); Mean Corpuscular Hgb Conc. 35.4 g/dL (32.0-36.0); Mean Corpuscular Volume 82.4 fL (80.0-100.0); Monocytes # (auto) 0.3 10 ^3/uL (0-1.3); Monocytes % (auto) 4.4 % (0.0-12.0); Neutrophils # (auto) 5.8 10 ^3/uL (1.6-8.6); Neutrophils % (auto) 91.8 % (37.0-80.0); Red Blood Cells 2.27 10^6/uL (4.5-5.90); Red Cell Distribution Width 19.9 % (11.8-14.3); White Blood Cell 6.3 10^3/uL (4.4-10.8)
[2023-01-11 04:38] LABS: Hemoglobin 6.6 g/dL (13.5-17.5)
[2023-01-11 04:45] LABS: Albumin 2.2 g/dL (3.4-5.0); Calcium 8.2 mg/dL (8.5-10.1); Magnesium 1.8 mg/dL (1.6-2.6); Potassium 3.8 mmol/L (3.5-5.1)
[2023-01-11 04:49] LABS: BUN/Creatinine Ratio 22.5 (10.0-20.0); Bilirubin, Total 2.2 mg/dL (0.2-1.0); Phosphorus 3.9 mg/dL (2.5-4.90); Total Protein 4.8 g/dL (6.4-8.2)
[2023-01-11] MEDS: METOCLOPRAMIDE HCL 5MG/ml INJ 2ml VIAL IV SCH ×3 (06:06→22:25)
[2023-01-11] MEDS ORDERED: SODIUM CHL 0.9% 1000 ML BAG XX ONE (07:00)
[2023-01-11] MEDS: CALCIUM ACETATE 667 MG CAP PO SCH ×3 (08:00→18:00)
[2023-01-11] MEDS: VASOPRESSIN 20 UNITS in SODIUM CHL 0.9% 99 ML IV SCH ×2 (10:13→21:20)
[2023-01-11] MEDS: NOREPINEPHRINE BITARTRATE 16 MG in SODIUM CHL 0.9% 234 ML IV SCH (11:44)
[2023-01-11] MEDS: LACTULOSE 20Gm/30ML SOLN PO SCH (14:49)
[2023-01-11] MEDS: AMIODARONE HCL 200 MG TAB PO SCH ×2 (14:49→22:25)
[2023-01-11] MEDS: methylPREDNISolone SOD SUCC 40 MG/ML VL IV SCH (14:50)
[2023-01-11] MEDS: CARVEDILOL 3.125 MG TAB GT SCH ×2 (14:50→22:24)
[2023-01-11] MEDS: AMINO ACID INFUSION IN D10W 1,000 ML IV NR (18:35)
[2023-01-11] MEDS: fentaNYL Drip 2500mCg/250mlNS 250 ML IV SCH (19:51)
[2023-01-11] MEDS ORDERED: EPOETIN ALFA-EPBX 10,000 UNIT/1ML VIAL SC ONE (21:00)
[2023-01-12] VITALS (107 sets, daily range): BP systolic 91–165; BP diastolic 33–81
[2023-01-12] MEDS: ACCU-CHEK COMFORT CURVE STRIP VI SCH ×4 (00:53→18:43)
[2023-01-12] MEDS: InsuLIN REG 1unit/0.01ml Soln (100units/ml) SC SCH ×4 (00:54→18:43)
[2023-01-12] MEDS: IPRATROPIUM BROM 0.5 MG/2.5ML INH SOL NEB SCH ×6 (02:14→22:15)
[2023-01-12] MEDS: ALBUTEROL SULF 2.5 MG/0.5ML(0.5%) NEB SOLN NEB SCH ×6 (02:14→22:15)
[2023-01-12] MEDS: PROPOFOL 100 ML IV SCH ×7 (02:32→21:15)
[2023-01-12 04:43] LABS: Basophils # (auto) 0 10 ^3/uL (0-0.2); Hemoglobin 7.7 g/dL (13.5-17.5); Mean Corpuscular Hemoglobin 29.6 pg (28.0-32.0)
[2023-01-12 04:44] LABS: Basophils % (auto) 0.3 % (0.0-2.0); Eosinophils # (auto) 0.2 10 ^3/uL (0-0.8); Hematocrit 22.6 % (41.0-53.0); Lymphocytes # (auto) 0.3 10 ^3/uL (0.4-5.4); Lymphocytes % (auto) 3.5 % (10.0-50.0); Mean Corpuscular Hgb Conc. 34.1 g/dL (32.0-36.0); Mean Corpuscular Volume 86.8 fL (80.0-100.0); Monocytes # (auto) 0.4 10 ^3/uL (0-1.3); Monocytes % (auto) 4.4 % (0.0-12.0); Neutrophils # (auto) 7.1 10 ^3/uL (1.6-8.6); Neutrophils % (auto) 88.8 % (37.0-80.0); Nucleated Red Blood Cells % 0.3 %; Red Cell Distribution Width 19.4 % (11.8-14.3)
[2023-01-12 04:45] LABS: Albumin 2.1 g/dL (3.4-5.0); Calcium 8.4 mg/dL (8.5-10.1); Magnesium 1.7 mg/dL (1.6-2.6); Potassium 4.4 mmol/L (3.5-5.1)
[2023-01-12 04:47] LABS: BUN/Creatinine Ratio 20.2 (10.0-20.0); Phosphorus 4.2 mg/dL (2.5-4.90)
[2023-01-12] MEDS: METOCLOPRAMIDE HCL 5MG/ml INJ 2ml VIAL IV SCH ×3 (05:59→22:06)
[2023-01-12] MEDS: CALCIUM ACETATE 667 MG CAP PO SCH ×3 (08:00→18:00)
[2023-01-12] MEDS: VASOPRESSIN 20 UNITS in SODIUM CHL 0.9% 99 ML IV SCH ×2 (08:00→19:34)
[2023-01-12] MEDS: fentaNYL Drip 2500mCg/250mlNS 250 ML IV SCH ×2 (08:30→19:15)
[2023-01-12] MEDS: AMIODARONE HCL 200 MG TAB PO SCH ×3 (09:54→22:07)
[2023-01-12] MEDS: CARVEDILOL 3.125 MG TAB GT SCH ×3 (09:54→22:07)
[2023-01-12] MEDS: methylPREDNISolone SOD SUCC 40 MG/ML VL IV SCH (09:54)
[2023-01-12] MEDS: LACTULOSE 20Gm/30ML SOLN PO SCH ×2 (09:54→10:00)
[2023-01-12] MEDS: NOREPINEPHRINE BITARTRATE 16 MG in SODIUM CHL 0.9% 234 ML IV SCH (11:30)
[2023-01-12] MEDS: AMINO ACID INFUSION IN D10W 1,000 ML IV NR (18:00)
[2023-01-13] VITALS (83 sets, daily range): BP systolic 77–147; BP diastolic 37–71
[2023-01-13] MEDS: PROPOFOL 100 ML IV SCH ×8 (00:30→20:59)
[2023-01-13] MEDS: InsuLIN REG 1unit/0.01ml Soln (100units/ml) SC SCH ×5 (00:32→23:32)
[2023-01-13] MEDS: ACCU-CHEK COMFORT CURVE STRIP VI SCH ×5 (00:32→23:35)
[2023-01-13] MEDS: ALBUTEROL SULF 2.5 MG/0.5ML(0.5%) NEB SOLN NEB SCH ×6 (02:05→22:08)
[2023-01-13] MEDS: IPRATROPIUM BROM 0.5 MG/2.5ML INH SOL NEB SCH ×6 (02:05→22:08)
[2023-01-13 03:57] LABS: Basophils # (auto) 0 10 ^3/uL (0-0.2); Basophils % (auto) 0.1 % (0.0-2.0); Eosinophils # (auto) 0 10 ^3/uL (0-0.8); Hemoglobin 7.6 g/dL (13.5-17.5); Monocytes # (auto) 0.3 10 ^3/uL (0-1.3)
[2023-01-13 04:00] LABS: Eosinophils % (auto) 0.1 % (0.0-7.0); Hematocrit 22.8 % (41.0-53.0); Lymphocytes # (auto) 0.5 10 ^3/uL (0.4-5.4); Lymphocytes % (auto) 6.4 % (10.0-50.0); Mean Corpuscular Hemoglobin 29.4 pg (28.0-32.0); Mean Corpuscular Hgb Conc. 33.3 g/dL (32.0-36.0); Mean Corpuscular Volume 88.2 fL (80.0-100.0); Monocytes % (auto) 3.6 % (0.0-12.0); Neutrophils # (auto) 6.7 10 ^3/uL (1.6-8.6); Neutrophils % (auto) 89.8 % (37.0-80.0); Nucleated Red Blood Cells % 0.2 %; Red Blood Cells 2.58 10^6/uL (4.5-5.90); Red Cell Distribution Width 19.6 % (11.8-14.3); White Blood Cell 7.4 10^3/uL (4.4-10.8)
[2023-01-13 04:15] LABS: Albumin 2.2 g/dL (3.4-5.0); BUN/Creatinine Ratio 21.2 (10.0-20.0); Calcium 8.4 mg/dL (8.5-10.1); Magnesium 1.8 mg/dL (1.6-2.6)
[2023-01-13 04:18] LABS: Bilirubin, Total 2.5 mg/dL (0.2-1.0); Phosphorus 4.8 mg/dL (2.5-4.90); Total Protein 5.2 g/dL (6.4-8.2)
[2023-01-13] MEDS: METOCLOPRAMIDE HCL 5MG/ml INJ 2ml VIAL IV SCH ×3 (06:00→21:32)
[2023-01-13] MEDS: VASOPRESSIN 20 UNITS in SODIUM CHL 0.9% 99 ML IV SCH ×2 (06:41→17:48)
[2023-01-13] MEDS ORDERED: SODIUM CHL 0.9% 1000 ML BAG XX ONE (07:00)
[2023-01-13] MEDS: fentaNYL Drip 2500mCg/250mlNS 250 ML IV SCH (07:43)
[2023-01-13] MEDS: CALCIUM ACETATE 667 MG CAP PO SCH ×3 (08:00→18:00)
[2023-01-13] MEDS ORDERED: MIDAZOLAM DRIP 50 mg/50mL 50 ML IV ONE (09:09)
[2023-01-13] MEDS: AMIODARONE HCL 200 MG TAB PO SCH ×3 (09:18→21:34)
[2023-01-13] MEDS: CARVEDILOL 3.125 MG TAB GT SCH ×3 (09:19→21:33)
[2023-01-13] MEDS: methylPREDNISolone SOD SUCC 40 MG/ML VL IV SCH (09:19)
[2023-01-13] MEDS ORDERED: GLYCOPYRROLATE 0.2 MG/ML 1ML VIAL ONE (09:19)
[2023-01-13] MEDS ORDERED: EPINEPHrine HCL 1 MG/1 ML AMP ONE (09:20)
[2023-01-13] MEDS ORDERED: LIDOCAINE 2%HCL (LOCAL ANESTH.) INJ 20ML MDV ONE (09:20)
[2023-01-13] MEDS: LACTULOSE 20Gm/30ML SOLN PO SCH ×2 (09:20→10:00)
[2023-01-13] MEDS ORDERED: fentaNYL CITRATE 100 MCG/2 ML VL ONE (09:21)
[2023-01-13] MEDS ORDERED: MIDAZOLAM HCL 2MG/2ML 2ml VIAL (1mg/ml) ONE (09:21)
[2023-01-13] MEDS ORDERED: LIDOCAINE 2% JELLY 11ml (GLYDO) ONE (09:37)
[2023-01-13] MEDS ORDERED: LIDOCAINE 2%HCL (LOCAL ANESTH.) INJ 10ml MDV ONE (09:37)
[2023-01-13] MEDS ORDERED: NOREPINEPHRINE 8 MG/250ML KIT 250 ML IV ONE (10:09)
[2023-01-13] MEDS: NOREPINEPHRINE BITARTRATE 16 MG in SODIUM CHL 0.9% 234 ML IV SCH (11:30)
[2023-01-13] MEDS ORDERED: NOREPINEPHRINE BITARTRATE 16 MG in SODIUM CHL 0.9% 234 ML IV SCH (15:30)
[2023-01-13] MEDS: MIDAZOLAM DRIP 50 mg/50mL 50 ML IV SCH (17:43)
[2023-01-13] MEDS: AMINO ACID INFUSION IN D10W 1,000 ML IV NR (18:34)
[2023-01-13] MEDS ORDERED: EPOETIN ALFA-EPBX 10,000 UNIT/1ML VIAL SC ONE (21:00)
[2023-01-14] VITALS (102 sets, daily range): BP systolic 83–119; BP diastolic 34–64
[2023-01-14] MEDS: ALBUTEROL SULF 2.5 MG/0.5ML(0.5%) NEB SOLN NEB SCH ×6 (02:07→22:02)
[2023-01-14] MEDS: IPRATROPIUM BROM 0.5 MG/2.5ML INH SOL NEB SCH ×6 (02:07→22:02)
[2023-01-14] MEDS: PROPOFOL 100 ML IV SCH ×7 (02:48→23:27)
[2023-01-14] MEDS: VASOPRESSIN 20 UNITS in SODIUM CHL 0.9% 99 ML IV SCH ×2 (04:13→16:02)
[2023-01-14 04:47] LABS: Albumin 2.4 g/dL (3.4-5.0); Calcium 8.4 mg/dL (8.5-10.1); Magnesium 1.7 mg/dL (1.6-2.6); Potassium 3.6 mmol/L (3.5-5.1)
[2023-01-14 04:48] LABS: Basophils # (auto) 0 10 ^3/uL (0-0.2); Basophils % (auto) 0.2 % (0.0-2.0); Eosinophils # (auto) 0.1 10 ^3/uL (0-0.8); Eosinophils % (auto) 1.1 % (0.0-7.0); Hematocrit 21.4 % (41.0-53.0); Hemoglobin 7.5 g/dL (13.5-17.5); Lymphocytes # (auto) 0.4 10 ^3/uL (0.4-5.4); Lymphocytes % (auto) 4.5 % (10.0-50.0); Mean Corpuscular Hemoglobin 29.2 pg (28.0-32.0); Mean Corpuscular Hgb Conc. 34.9 g/dL (32.0-36.0); Mean Corpuscular Volume 83.5 fL (80.0-100.0); Monocytes # (auto) 0.3 10 ^3/uL (0-1.3); Monocytes % (auto) 2.9 % (0.0-12.0); Neutrophils # (auto) 8.3 10 ^3/uL (1.6-8.6); Neutrophils % (auto) 91.3 % (37.0-80.0); Nucleated Red Blood Cells % 0.3 %; Red Blood Cells 2.56 10^6/uL (4.5-5.90); Red Cell Distribution Width 19.6 % (11.8-14.3); White Blood Cell 9.1 10^3/uL (4.4-10.8)
[2023-01-14 04:51] LABS: BUN/Creatinine Ratio 19.1 (10.0-20.0); Bilirubin, Total 2.8 mg/dL (0.2-1.0); Phosphorus 3.9 mg/dL (2.5-4.90); Total Protein 5.4 g/dL (6.4-8.2)
[2023-01-14] MEDS: InsuLIN REG 1unit/0.01ml Soln (100units/ml) SC SCH ×4 (04:58→23:25)
[2023-01-14] MEDS: ACCU-CHEK COMFORT CURVE STRIP VI SCH ×4 (04:58→23:26)
[2023-01-14] MEDS: METOCLOPRAMIDE HCL 5MG/ml INJ 2ml VIAL IV SCH ×3 (04:59→21:23)
[2023-01-14] MEDS: fentaNYL Drip 2500mCg/250mlNS 250 ML IV SCH ×2 (06:23→18:15)
[2023-01-14] MEDS: CALCIUM ACETATE 667 MG CAP PO SCH ×2 (08:00→12:00)
[2023-01-14] MEDS: LACTULOSE 20Gm/30ML SOLN PO SCH (10:00)
[2023-01-14] MEDS: CARVEDILOL 3.125 MG TAB GT SCH ×2 (10:00→21:32)
[2023-01-14] MEDS: MIDAZOLAM DRIP 50 mg/50mL 50 ML IV SCH ×3 (10:26→21:31)
[2023-01-14] MEDS: methylPREDNISolone SOD SUCC 40 MG/ML VL IV SCH (11:30)
[2023-01-14] MEDS: AMIODARONE HCL 200 MG TAB PO SCH ×2 (11:31→21:36)
[2023-01-14] MEDS ORDERED: CEFEPIME 1GM/ 50ML 50 ML IV ONE (12:30)
[2023-01-14] MEDS: AMINO ACID INFUSION IN D10W 1,000 ML IV NR ×2 (17:48→19:42)
[2023-01-14] MEDS ORDERED: AMINO ACID INFUSION IN D10W 1,000 ML IV NR (20:00)
[2023-01-14] MEDS: CEFEPIME 1GM/ 50ML 50 ML IV SCH (21:26)
[2023-01-14] MEDS: NOREPINEPHRINE BITARTRATE 32 MG in SODIUM CHL 0.9% 218 ML IV SCH (21:46)
[2023-01-15] VITALS (127 sets, daily range): BP systolic 74–154; BP diastolic 16–60
[2023-01-15] MEDS: MIDAZOLAM DRIP 50 mg/50mL 50 ML IV SCH ×6 (00:47→21:49)
[2023-01-15] MEDS: ALBUTEROL SULF 2.5 MG/0.5ML(0.5%) NEB SOLN NEB SCH ×6 (02:05→22:25)
[2023-01-15] MEDS: IPRATROPIUM BROM 0.5 MG/2.5ML INH SOL NEB SCH ×6 (02:05→22:25)
[2023-01-15] MEDS: PROPOFOL 100 ML IV SCH ×8 (02:46→23:16)
[2023-01-15] MEDS: VASOPRESSIN 20 UNITS in SODIUM CHL 0.9% 99 ML IV SCH ×3 (03:09→19:19)
[2023-01-15 04:41] LABS: Calcium 8.2 mg/dL (8.5-10.1)
[2023-01-15 04:47] LABS: Albumin 2.1 g/dL (3.4-5.0); BUN/Creatinine Ratio 21.1 (10.0-20.0); Bilirubin, Total 3.3 mg/dL (0.2-1.0); Magnesium 2.1 mg/dL (1.6-2.6); Phosphorus 5.3 mg/dL (2.5-4.90); Total Protein 5.1 g/dL (6.4-8.2)
[2023-01-15] MEDS: ACCU-CHEK COMFORT CURVE STRIP VI SCH ×4 (05:11→23:16)
[2023-01-15] MEDS: METOCLOPRAMIDE HCL 5MG/ml INJ 2ml VIAL IV SCH ×3 (05:11→21:50)
[2023-01-15] MEDS: InsuLIN REG 1unit/0.01ml Soln (100units/ml) SC SCH ×4 (05:21→23:09)
[2023-01-15 05:27] LABS: Potassium 4.2 mmol/L (3.5-5.1)
[2023-01-15] MEDS: fentaNYL Drip 2500mCg/250mlNS 250 ML IV SCH ×2 (05:40→18:47)
[2023-01-15 07:18] LABS: Hematocrit 16.4 % (41.0-53.0); Mean Corpuscular Hemoglobin 29.7 pg (28.0-32.0); Mean Corpuscular Hgb Conc. 33.4 g/dL (32.0-36.0); Mean Corpuscular Volume 88.9 fL (80.0-100.0); Red Blood Cells 1.84 10^6/uL (4.5-5.90); White Blood Cell 7.3 10^3/uL (4.4-10.8)
[2023-01-15 07:26] LABS: Hemoglobin 5.5 g/dL (13.5-17.5)
[2023-01-15 07:27] LABS: Red Cell Distribution Width 20.1 % (11.8-14.3)
[2023-01-15 07:29] LABS: Basophils % (manual) 0 (0.0-2.0); Blast Cells 0; Eosinophils % (manual) 0 (0-7); Metamyelocytes % 0; Myelocytes % 0; Promyelocytes % 0; Reactive Lymphocytes 0
[2023-01-15] MEDS: LACTULOSE 20Gm/30ML SOLN PO SCH (08:17)
[2023-01-15] MEDS: CARVEDILOL 3.125 MG TAB GT SCH ×2 (08:17→21:50)
[2023-01-15 08:33] LABS: Band Neutrophils % (manual) 1; Lymphocytes % (manual) 5 (10.0-50.0); Monocytes % (manual) 4 (0-12)
[2023-01-15] MEDS: methylPREDNISolone SOD SUCC 40 MG/ML VL IV SCH (10:56)
[2023-01-15] MEDS: CEFEPIME 1GM/ 50ML 50 ML IV SCH ×2 (10:56→22:07)
[2023-01-15] MEDS: AMIODARONE HCL 200 MG TAB PO SCH ×2 (10:58→21:58)
[2023-01-15] MEDS: NOREPINEPHRINE BITARTRATE 32 MG in SODIUM CHL 0.9% 218 ML IV SCH (13:55)
[2023-01-15] MEDS: FAMOTIDINE (10MG/ML) 2ML VL IV SCH (21:50)
[2023-01-15] MEDS: EPINEPHrine HCL INJECTION 16 MG in D5W 5% 234 ML IV SCH (22:23)
[2023-01-15] MEDS: PHENYLEPHRINE INJ 80 MG in SODIUM CHL 0.9% 242 ML IV SCH (22:23)
[2023-01-15] MEDS: AMINO ACID INFUSION IN D10W 1,000 ML IV NR (23:42)
[2023-01-16] VITALS (118 sets, daily range): BP systolic 86–181; BP diastolic 12–48
[2023-01-16] MEDS: MIDAZOLAM DRIP 50 mg/50mL 50 ML IV SCH ×7 (01:23→21:41)
[2023-01-16] MEDS: IPRATROPIUM BROM 0.5 MG/2.5ML INH SOL NEB SCH ×6 (03:06→22:38)
[2023-01-16] MEDS: ALBUTEROL SULF 2.5 MG/0.5ML(0.5%) NEB SOLN NEB SCH ×6 (03:06→22:38)
[2023-01-16] MEDS: PROPOFOL 100 ML IV SCH ×6 (03:13→23:31)
[2023-01-16 04:41] LABS: Calcium 7.8 mg/dL (8.5-10.1); Potassium 5.1 mmol/L (3.5-5.1)
[2023-01-16 04:48] LABS: Albumin 1.5 g/dL (3.4-5.0); BUN/Creatinine Ratio 23.4 (10.0-20.0); Bilirubin, Total 2.9 mg/dL (0.2-1.0); Phosphorus 7.4 mg/dL (2.5-4.90)
[2023-01-16] MEDS: ACCU-CHEK COMFORT CURVE STRIP VI SCH ×4 (05:36→23:38)
[2023-01-16] MEDS: METOCLOPRAMIDE HCL 5MG/ml INJ 2ml VIAL IV SCH ×3 (05:36→21:39)
[2023-01-16] MEDS: InsuLIN REG 1unit/0.01ml Soln (100units/ml) SC SCH ×4 (06:05→23:39)
[2023-01-16] MEDS: NOREPINEPHRINE BITARTRATE 32 MG in SODIUM CHL 0.9% 218 ML IV SCH ×2 (06:06→23:30)
[2023-01-16] MEDS: EPINEPHrine HCL INJECTION 16 MG in D5W 5% 234 ML IV SCH (08:15)
[2023-01-16] MEDS: PHENYLEPHRINE INJ 80 MG in SODIUM CHL 0.9% 242 ML IV SCH ×2 (08:15→16:32)
[2023-01-16] MEDS: fentaNYL Drip 2500mCg/250mlNS 250 ML IV SCH ×2 (08:21→19:30)
[2023-01-16] MEDS: VASOPRESSIN 20 UNITS in SODIUM CHL 0.9% 99 ML IV SCH ×2 (09:05→19:40)
[2023-01-16 09:25] LABS: Hematocrit 27.4 % (41.0-53.0); Hemoglobin 9.5 g/dL (13.5-17.5); Mean Corpuscular Hemoglobin 29.5 pg (28.0-32.0); Mean Corpuscular Hgb Conc. 34.8 g/dL (32.0-36.0); Mean Corpuscular Volume 84.6 fL (80.0-100.0); Red Blood Cells 3.23 10^6/uL (4.5-5.90); Red Cell Distribution Width 17.6 % (11.8-14.3); White Blood Cell 9.2 10^3/uL (4.4-10.8)
[2023-01-16] MEDS ORDERED: SODIUM CHL 0.9% 1000 ML BAG XX ONE (09:30)
[2023-01-16 09:39] LABS: Basophils % (manual) 0 (0.0-2.0); Blast Cells 0; Eosinophils % (manual) 0 (0-7); Metamyelocytes % 0; Myelocytes % 0; Promyelocytes % 0; Reactive Lymphocytes 0
[2023-01-16] MEDS: LACTULOSE 20Gm/30ML SOLN PO SCH (10:00)
[2023-01-16] MEDS: CARVEDILOL 3.125 MG TAB GT SCH ×2 (10:00→21:39)
[2023-01-16] MEDS: AMIODARONE HCL 200 MG TAB PO SCH ×2 (10:14→21:40)
[2023-01-16] MEDS: CEFEPIME 1GM/ 50ML 50 ML IV SCH ×2 (10:14→21:39)
[2023-01-16 13:28] LABS: Band Neutrophils % (manual) 25; Lymphocytes % (manual) 1 (10.0-50.0); Monocytes % (manual) 3 (0-12)
[2023-01-16] MEDS ORDERED: SODIUM BICARBONATE 8.4 % INJ 50ML VIAL IV ONE (15:45)
[2023-01-16] MEDS: AMINO ACID INFUSION IN D10W 1,000 ML IV NR (20:25)
[2023-01-16] MEDS ORDERED: EPOETIN ALFA-EPBX 10,000 UNIT/1ML VIAL SC ONE (21:00)
[2023-01-17] VITALS (112 sets, daily range): BP systolic 91–165; BP diastolic 14–51
[2023-01-17] MEDS ORDERED: PHENYLEPHRINE HCL 10 MG/ML VL ONE ×2 (01:10→01:14)
[2023-01-17] MEDS: IPRATROPIUM BROM 0.5 MG/2.5ML INH SOL NEB SCH ×6 (02:31→22:17)
[2023-01-17] MEDS: ALBUTEROL SULF 2.5 MG/0.5ML(0.5%) NEB SOLN NEB SCH ×6 (02:31→22:17)
[2023-01-17] MEDS: PROPOFOL 100 ML IV SCH ×4 (02:33→13:26)
[2023-01-17] MEDS: MIDAZOLAM DRIP 50 mg/50mL 50 ML IV SCH ×6 (02:33→20:37)
[2023-01-17 04:28] LABS: Hematocrit 26.3 % (41.0-53.0)
[2023-01-17 04:31] LABS: Mean Corpuscular Hemoglobin 29.9 pg (28.0-32.0); Mean Corpuscular Hgb Conc. 34.1 g/dL (32.0-36.0); Mean Corpuscular Volume 87.6 fL (80.0-100.0); Red Cell Distribution Width 18.2 % (11.8-14.3); White Blood Cell 8.1 10^3/uL (4.4-10.8)
[2023-01-17 04:48] LABS: Albumin 1.8 g/dL (3.4-5.0); Calcium 7.4 mg/dL (8.5-10.1); Magnesium 1.9 mg/dL (1.6-2.6); Potassium 4.1 mmol/L (3.5-5.1)
[2023-01-17 04:52] LABS: BUN/Creatinine Ratio 24.3 (10.0-20.0); Phosphorus 5.8 mg/dL (2.5-4.90); Total Protein 4.9 g/dL (6.4-8.2)
[2023-01-17 05:13] LABS: Basophils % (manual) 0 (0.0-2.0); Blast Cells 0; Metamyelocytes % 0; Myelocytes % 0; Promyelocytes % 0; Reactive Lymphocytes 0
[2023-01-17] MEDS: PHENYLEPHRINE INJ 80 MG in SODIUM CHL 0.9% 242 ML IV SCH ×2 (05:40→17:00)
[2023-01-17] MEDS: VASOPRESSIN 20 UNITS in SODIUM CHL 0.9% 99 ML IV SCH ×2 (05:40→16:55)
[2023-01-17] MEDS: METOCLOPRAMIDE HCL 5MG/ml INJ 2ml VIAL IV SCH ×3 (05:45→21:45)
[2023-01-17] MEDS: ACCU-CHEK COMFORT CURVE STRIP VI SCH ×4 (05:50→23:51)
[2023-01-17] MEDS: InsuLIN REG 1unit/0.01ml Soln (100units/ml) SC SCH ×4 (05:55→23:50)
[2023-01-17 07:59] LABS: Band Neutrophils % (manual) 5; Eosinophils % (manual) 3 (0-7); Lymphocytes % (manual) 6 (10.0-50.0); Monocytes % (manual) 2 (0-12)
[2023-01-17] MEDS ORDERED: ALBUMIN 25% 100 ML IV ONE ×2 (08:15)
[2023-01-17] MEDS: EPINEPHrine HCL INJECTION 16 MG in D5W 5% 234 ML IV SCH (08:15)
[2023-01-17] MEDS: fentaNYL Drip 2500mCg/250mlNS 250 ML IV SCH ×2 (08:45→22:19)
[2023-01-17] MEDS: CEFEPIME 1GM/ 50ML 50 ML IV SCH ×2 (09:39→21:46)
[2023-01-17] MEDS: AMIODARONE HCL 200 MG TAB PO SCH ×2 (09:39→21:46)
[2023-01-17] MEDS: FAMOTIDINE (10MG/ML) 2ML VL IV SCH (09:39)
[2023-01-17] MEDS: CARVEDILOL 3.125 MG TAB GT SCH ×2 (10:00→21:47)
[2023-01-17] MEDS: LACTULOSE 20Gm/30ML SOLN PO SCH (10:00)
[2023-01-17] MEDS: NOREPINEPHRINE BITARTRATE 32 MG in SODIUM CHL 0.9% 218 ML IV SCH (16:00)
[2023-01-17] MEDS: AMINO ACID INFUSION IN D10W 1,000 ML IV NR (20:21)
[2023-01-17] MEDS ORDERED: DEXTROSE 10% 250 ML IV ONE (23:58)
[2023-01-18] VITALS (44 sets, daily range): BP systolic 0–207; BP diastolic 0–77
[2023-01-18] MEDS ORDERED: DEXTROSE 10% 250 ML IV ONE
[2023-01-18] MEDS: MIDAZOLAM DRIP 50 mg/50mL 50 ML IV SCH ×2 (02:13→05:29)
[2023-01-18] MEDS: IPRATROPIUM BROM 0.5 MG/2.5ML INH SOL NEB SCH ×3 (02:17→10:02)
[2023-01-18] MEDS: ALBUTEROL SULF 2.5 MG/0.5ML(0.5%) NEB SOLN NEB SCH ×3 (02:17→10:02)
[2023-01-18 04:04] LABS: Red Blood Cells 2.22 10^6/uL (4.5-5.90)
[2023-01-18 04:05] LABS: Albumin 1.9 g/dL (3.4-5.0); Calcium 8.1 mg/dL (8.5-10.1); Magnesium 2.2 mg/dL (1.6-2.6)
[2023-01-18 04:31] LABS: Hematocrit 20.8 % (41.0-53.0); Mean Corpuscular Hemoglobin 30.8 pg (28.0-32.0); Mean Corpuscular Hgb Conc. 32.9 g/dL (32.0-36.0); Mean Corpuscular Volume 93.6 fL (80.0-100.0); Red Cell Distribution Width 18.9 % (11.8-14.3); White Blood Cell 5.4 10^3/uL (4.4-10.8)
[2023-01-18 04:33] LABS: Phosphorus 9.5 mg/dL (2.5-4.90); Potassium 5.6 mmol/L (3.5-5.1)
[2023-01-18 04:34] LABS: Bilirubin, Total 4.2 mg/dL (0.2-1.0); Total Protein 4.3 g/dL (6.4-8.2)
[2023-01-18 04:35] LABS: Hemoglobin 6.8 g/dL (13.5-17.5)
[2023-01-18 04:37] LABS: Basophils % (manual) 0 (0.0-2.0); Blast Cells 0; Eosinophils % (manual) 0 (0-7); Metamyelocytes % 0; Promyelocytes % 0; Reactive Lymphocytes 0
[2023-01-18] MEDS: VASOPRESSIN 20 UNITS in SODIUM CHL 0.9% 99 ML IV SCH (05:28)
[2023-01-18] MEDS: METOCLOPRAMIDE HCL 5MG/ml INJ 2ml VIAL IV SCH (05:29)
[2023-01-18] MEDS: ACCU-CHEK COMFORT CURVE STRIP VI SCH (05:39)
[2023-01-18] MEDS: InsuLIN REG 1unit/0.01ml Soln (100units/ml) SC SCH (05:39)
[2023-01-18] MEDS ORDERED: SODIUM ZIRCONIUM CYCL 10 GM PAK PO ONE ×2 (06:00→06:45)
[2023-01-18 07:11] LABS: Band Neutrophils % (manual) 37; Lymphocytes % (manual) 9 (10.0-50.0); Monocytes % (manual) 5 (0-12); Myelocytes % 2
[2023-01-18] MEDS: EPINEPHrine HCL INJECTION 16 MG in D5W 5% 234 ML IV SCH (08:15)
[2023-01-18] MEDS: PHENYLEPHRINE INJ 80 MG in SODIUM CHL 0.9% 242 ML IV SCH (09:53)
[2023-01-18] MEDS ORDERED: PANTOPRAZOLE 40 MG/10 ML VIAL INJ IV SCH (10:00)
== END 2023-01-18 16:35 | DRG 870 ==
LOC: ER 04:24 → EDBD 04:24 → TELE 09:48 → ICU WEST 10:18
PROVIDERS: ADMIT Registered Nurse; ATTEND Internal Medicine Pulmonary Disease
PROC: 5A1955Z Respiratory Ventilation, Greater than 96 Consecutive Hours (ICD-10-PCS; principal; 2022-11-29)
PROC: 0BH17EZ Insertion of Endotracheal Airway into Trachea, Via Natural or Artificial Opening (ICD-10-PCS; 2022-11-29)
PROC: 30233N1 Transfusion of Nonautologous Red Blood Cells into Peripheral Vein, Percutaneous Approach (ICD-10-PCS; 2022-11-29)
PROC: 06H033Z Insertion of Infusion Device into Inferior Vena Cava, Percutaneous Approach (ICD-10-PCS; 2022-12-01)
PROC: B549ZZA Ultrasonography of Inferior Vena Cava, Guidance (ICD-10-PCS; 2022-12-01)
PROC: 5A1D70Z Performance of Urinary Filtration, Intermittent, Less than 6 Hours Per Day (ICD-10-PCS; 2022-12-02)
PROC: 5A1D70Z Performance of Urinary Filtration, Intermittent, Less than 6 Hours Per Day (ICD-10-PCS; 2022-12-04)
PROC: 5A1D70Z Performance of Urinary Filtration, Intermittent, Less than 6 Hours Per Day (ICD-10-PCS; 2022-12-06)
PROC: 05HF33Z Insertion of Infusion Device into Left Cephalic Vein, Percutaneous Approach (ICD-10-PCS; 2022-12-07)
PROC: 5A1D70Z Performance of Urinary Filtration, Intermittent, Less than 6 Hours Per Day (ICD-10-PCS; 2022-12-08)
PROC: 5A1D70Z Performance of Urinary Filtration, Intermittent, Less than 6 Hours Per Day (ICD-10-PCS; 2022-12-10)
PROC: 5A1D70Z Performance of Urinary Filtration, Intermittent, Less than 6 Hours Per Day (ICD-10-PCS; 2022-12-13)
PROC: 06H033Z Insertion of Infusion Device into Inferior Vena Cava, Percutaneous Approach (ICD-10-PCS; 2022-12-14)
PROC: B549ZZA Ultrasonography of Inferior Vena Cava, Guidance (ICD-10-PCS; 2022-12-14)
PROC: 06PY33Z Removal of Infusion Device from Lower Vein, Percutaneous Approach (ICD-10-PCS; 2022-12-14)
PROC: 5A1D70Z Performance of Urinary Filtration, Intermittent, Less than 6 Hours Per Day (ICD-10-PCS; 2022-12-15)
PROC: 5A1D70Z Performance of Urinary Filtration, Intermittent, Less than 6 Hours Per Day (ICD-10-PCS; 2022-12-16)
PROC: 5A1D70Z Performance of Urinary Filtration, Intermittent, Less than 6 Hours Per Day (ICD-10-PCS; 2022-12-18)
PROC: 5A1D70Z Performance of Urinary Filtration, Intermittent, Less than 6 Hours Per Day (ICD-10-PCS; 2022-12-20)
PROC: 5A1D70Z Performance of Urinary Filtration, Intermittent, Less than 6 Hours Per Day (ICD-10-PCS; 2022-12-21)
PROC: 5A1D70Z Performance of Urinary Filtration, Intermittent, Less than 6 Hours Per Day (ICD-10-PCS; 2022-12-23)
PROC: 5A1D70Z Performance of Urinary Filtration, Intermittent, Less than 6 Hours Per Day (ICD-10-PCS; 2022-12-24)
PROC: 30233R1 Transfusion of Nonautologous Platelets into Peripheral Vein, Percutaneous Approach (ICD-10-PCS; 2022-12-26)
PROC: 5A1D70Z Performance of Urinary Filtration, Intermittent, Less than 6 Hours Per Day (ICD-10-PCS; 2022-12-26)
PROC: 5A1D70Z Performance of Urinary Filtration, Intermittent, Less than 6 Hours Per Day (ICD-10-PCS; 2022-12-27)
PROC: 0JH63XZ Insertion of Tunneled Vascular Access Device into Chest Subcutaneous Tissue and Fascia, Percutaneous Approach (ICD-10-PCS; 2022-12-27)
PROC: 02HV33Z Insertion of Infusion Device into Superior Vena Cava, Percutaneous Approach (ICD-10-PCS; 2022-12-27)
PROC: B5181ZA Fluoroscopy of Superior Vena Cava using Low Osmolar Contrast, Guidance (ICD-10-PCS; 2022-12-27)
PROC: 5A1D70Z Performance of Urinary Filtration, Intermittent, Less than 6 Hours Per Day (ICD-10-PCS; 2022-12-29)
PROC: 5A1D70Z Performance of Urinary Filtration, Intermittent, Less than 6 Hours Per Day (ICD-10-PCS; 2023-01-01)
PROC: 5A1D70Z Performance of Urinary Filtration, Intermittent, Less than 6 Hours Per Day (ICD-10-PCS; 2023-01-03)
PROC: 5A1D70Z Performance of Urinary Filtration, Intermittent, Less than 6 Hours Per Day (ICD-10-PCS; 2023-01-05)
PROC: 5A1D70Z Performance of Urinary Filtration, Intermittent, Less than 6 Hours Per Day (ICD-10-PCS; 2023-01-09)
PROC: 5A1D70Z Performance of Urinary Filtration, Intermittent, Less than 6 Hours Per Day (ICD-10-PCS; 2023-01-11)
PROC: 0B968ZZ Drainage of Right Lower Lobe Bronchus, Via Natural or Artificial Opening Endoscopic (ICD-10-PCS; 2023-01-13)
PROC: 5A1D70Z Performance of Urinary Filtration, Intermittent, Less than 6 Hours Per Day (ICD-10-PCS; 2023-01-13)
PROC: 5A1D70Z Performance of Urinary Filtration, Intermittent, Less than 6 Hours Per Day (ICD-10-PCS; 2023-01-17)
DX: A41.9 Sepsis, unspecified organism (principal); I21.4 Non-ST elevation (NSTEMI) myocardial infarction; J18.9 Pneumonia, unspecified organism; J96.21 Acute and chronic respiratory failure with hypoxia; K85.90 Acute pancreatitis without necrosis or infection, unspecified; N17.0 Acute kidney failure with tubular necrosis; R65.21 Severe sepsis with septic shock; I50.41 Acute combined systolic (congestive) and diastolic (congestive) heart failure; N18.6 End stage renal disease; K83.1 Obstruction of bile duct; E87.4 Mixed disorder of acid-base balance; I13.0 Hypertensive heart and chronic kidney disease with heart failure and stage 1 through stage 4 chronic kidney disease, or unspecified chronic kidney disease; J44.0 Chronic obstructive pulmonary disease with (acute) lower respiratory infection; J44.1 Chronic obstructive pulmonary disease with (acute) exacerbation; I13.2 Hypertensive heart and chronic kidney disease with heart failure and with stage 5 chronic kidney disease, or end stage renal disease; K56.7 Ileus, unspecified; I48.92 Unspecified atrial flutter; D62 Acute posthemorrhagic anemia; E87.1 Hypo-osmolality and hyponatremia; E46 Unspecified protein-calorie malnutrition; G93.40 Encephalopathy, unspecified; D61.818 Other pancytopenia; I46.9 Cardiac arrest, cause unspecified; Z66 Do not resuscitate; E78.5 Hyperlipidemia, unspecified; E66.01 Morbid (severe) obesity due to excess calories; I71.43 Infrarenal abdominal aortic aneurysm, without rupture; F10.10 Alcohol abuse, uncomplicated; E83.42 Hypomagnesemia; E87.6 Hypokalemia; K59.00 Constipation, unspecified; N28.1 Cyst of kidney, acquired; I44.0 Atrioventricular block, first degree; Z20.822 Contact with and (suspected) exposure to COVID-19; K70.30 Alcoholic cirrhosis of liver without ascites; E11.22 Type 2 diabetes mellitus with diabetic chronic kidney disease; Y90.0 Blood alcohol level of less than 20 mg/100 ml; M10.9 Gout, unspecified; Z68.34 Body mass index [BMI] 34.0-34.9, adult; Z71.41 Alcohol abuse counseling and surveillance of alcoholic; Z71.3 Dietary counseling and surveillance; E83.39 Other disorders of phosphorus metabolism; I48.0 Paroxysmal atrial fibrillation; D63.1 Anemia in chronic kidney disease
CPT/HCPCS: 31500; 36415; 36558; 36600; 70450; 71045; 74018; 74176; 76700; 76705; 77001; 80048; 80053; 80061; 80069; 80074; 80202; 80307; 80320; 80329; 81001; 82010; 82040; 82140; 82248; 82306; 82533; 82550; 82553; 82570; 82607; 82728; 82784; 82805; 82962; 83010; 83036; 83520; 83540; 83550; 83605; 83615; 83690; 83735; 83880; 83930; 83970; 84100; 84132; 84156; 84300; 84439; 84443; 84478; 84484; 84550; 85007; 85014; 85018; 85025; 85027; 85045; 85379; 85384; 85610; 85652; 85730; 86141; 86160; 86256; 86850; 86880; 86900; 86901; 86920; 87040; 87070; 87077; 87081; 87086; 87186; 87205; 87426; 87804; 90935; 93005; 93306; 93970; 94002; 94003; 94640; 94667; 94668; 96365; 99152; 99291; A4618; C1750; C9113; G0378; J0171; J0690; J0696; J1642; J1815; J2001; J2250; J2704; J3480; J3490; J7060; P9047